=== PATIENT | female | born 1935 | race Caucasian/White ===

== ENCOUNTER 2022-11-22 10:12 | Emergency (ER) | payer MEDICARE, SELFPAY ==
--- NOTE | ~2022-11-22 | CT_ITS ---
EXAMINATION: CT HEAD WITHOUT CONTRAST CT CERVICAL SPINE WITHOUT CONTRAST CLINICAL INFORMATION: Fall. COMPARISON: No relevant prior imaging. TECHNIQUE: Marble Supervisor images were obtained. CT imaging of the head and cervical spinal was performed without contrast. Data was reformatted into multiplanar images at the acquisition workstation. This CT examination was performed using dose optimization techniques as appropriate, including one or more of the following: Automated exposure control, iterative reconstruction, and adjustment of technique factors (mA and/or kVp) according to patient size (this includes techniques or standardized protocols for targeted exams where dose is matched to indication/reason for exam). Fleischner Society criteria for the followup of incidental pulmonary nodules was implemented if appropriate. DLP: 885 mGy-cm. FINDINGS: Head: There is no acute intracranial hemorrhage or abnormal extra-axial collection. No intracranial mass effect or midline shift. Lateral and third ventricles are normal. No hydrocephalus. Scattered nonspecific foci of hypoattenuation are visualized within the periventricular white matter that most likely represent a chronic manifestation of small vessel ischemia. The calvarium and skull base are intact. Mastoid air cells and middle ear cavities are well aerated. There is a trace right mastoid tip effusion. No active paranasal sinus disease. Cervical spine: Alignment is normal. Vertebral heights are preserved. No acute cervical spine fracture. No abnormal prevertebral soft tissue swelling. Bulging discs in conjunction with buckling of ligamenta flava causes at least mild canal stenosis at multiple levels. Visualized soft tissues of the neck are unremarkable. Pleural parenchymal scarring involving the apices of both lungs. CT/CT head/brain wo IV con IMPRESSION: Head: No acute intracranial hemorrhage. There are numerous chronic small vessel ischemic changes primarily involving the periatrial white matter. Grossly no evidence of acute territorial infarct. Cervical spine: No acute cervical spine fracture and no posttraumatic spinal subluxation. There is multilevel degenerative spondylosis of the cervical spine. Bulging discs in conjunction with buckling of ligamenta flava causing left mild canal stenosis at multiple levels.
--- NOTE | ~2022-11-22 | CT_ITS ---
EXAMINATION: CT HEAD WITHOUT CONTRAST CT CERVICAL SPINE WITHOUT CONTRAST CLINICAL INFORMATION: Fall. COMPARISON: No relevant prior imaging. TECHNIQUE: Survey Research Analyst images were obtained. CT imaging of the head and cervical spinal was performed without contrast. Data was reformatted into multiplanar images at the acquisition workstation. This CT examination was performed using dose optimization techniques as appropriate, including one or more of the following: Automated exposure control, iterative reconstruction, and adjustment of technique factors (mA and/or kVp) according to patient size (this includes techniques or standardized protocols for targeted exams where dose is matched to indication/reason for exam). Fleischner Society criteria for the followup of incidental pulmonary nodules was implemented if appropriate. DLP: 885 mGy-cm. FINDINGS: Head: There is no acute intracranial hemorrhage or abnormal extra-axial collection. No intracranial mass effect or midline shift. Lateral and third ventricles are normal. No hydrocephalus. Scattered nonspecific foci of hypoattenuation are visualized within the periventricular white matter that most likely represent a chronic manifestation of small vessel ischemia. The calvarium and skull base are intact. Mastoid air cells and middle ear cavities are well aerated. There is a trace right mastoid tip effusion. No active paranasal sinus disease. Cervical spine: Alignment is normal. Vertebral heights are preserved. No acute cervical spine fracture. No abnormal prevertebral soft tissue swelling. Bulging discs in conjunction with buckling of ligamenta flava causes at least mild canal stenosis at multiple levels. Visualized soft tissues of the neck are unremarkable. Pleural parenchymal scarring involving the apices of both lungs. CT/CT cervical spine wo IV con IMPRESSION: Head: No acute intracranial hemorrhage. There are numerous chronic small vessel ischemic changes primarily involving the periatrial white matter. Grossly no evidence of acute territorial infarct. Cervical spine: No acute cervical spine fracture and no posttraumatic spinal subluxation. There is multilevel degenerative spondylosis of the cervical spine. Bulging discs in conjunction with buckling of ligamenta flava causing left mild canal stenosis at multiple levels.
--- NOTE | ~2022-11-22 | XR_ITS ---
EXAMINATION: CHEST X-RAY. PELVIS. CLINICAL INFORMATION: Fall. COMPARISON: None TECHNIQUE: Chest one view. AP pelvis 2 views. 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 There is no periprosthetic fracture or loosening. There is absorption of acetabular bone narrow resulting in the high riding acetabulum. The SI joints are symmetrical. No pelvic bone fractures seen. The right hip joint is unremarkable. CHEST: The lungs are expanded and clear of acute process. The heart size and pulmonary vascularity is normal. There is mild dextroscoliosis. No gross bony abnormality seen. XR/XR chest 1V IMPRESSION: Total left hip prosthesis in alignment with no periprosthetic fracture or loosening. A high riding acetabulum is noted. No pelvic bone fractures seen. Mild dextroscoliosis dorsal spine. The lungs are clear.
--- NOTE | ~2022-11-22 | XR_ITS ---
EXAMINATION: XR WRIST, LEFT CLINICAL INFORMATION: Fall, pain COMPARISON: None TECHNIQUE: PA, lateral, and oblique views of the left wrist. FINDINGS: There is subtle lucency seen along the distal radius but no fracture suspected. The carpal bones are normal. There is loss of joint space first carpal medical joint with soft tissue calcifications left wrist adjacent to first carpometacarpal joint. XR/XR wrist LT 2V IMPRESSION: No acute fracture or dislocation. Mild degenerative changes first carpometacarpal joint.
--- NOTE | ~2022-11-22 | XR_ITS ---
EXAMINATION: CHEST X-RAY. PELVIS. CLINICAL INFORMATION: Fall. COMPARISON: None TECHNIQUE: Chest one view. AP pelvis 2 views. 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 There is no periprosthetic fracture or loosening. There is absorption of acetabular bone narrow resulting in the high riding acetabulum. The SI joints are symmetrical. No pelvic bone fractures seen. The right hip joint is unremarkable. CHEST: The lungs are expanded and clear of acute process. The heart size and pulmonary vascularity is normal. There is mild dextroscoliosis. No gross bony abnormality seen. XR/XR pelvis 1-2V IMPRESSION: Total left hip prosthesis in alignment with no periprosthetic fracture or loosening. A high riding acetabulum is noted. No pelvic bone fractures seen. Mild dextroscoliosis dorsal spine. The lungs are clear.
--- NOTE | 2022-11-22 10:18 | ECG_ITS ---
Test Reason : UNRESPONSIVE Blood Pressure : / mmHG Vent. Rate : 048 BPM Atrial Rate : 048 BPM P-R Int : 176 ms QRS Dur : 110 ms QT Int : 504 ms P-R-T Axes : -80 -31 002 degrees QTc Int : 450 ms Unusual P axis, possible ectopic atrial bradycardia Left axis deviation Low voltage QRS Incomplete right bundle branch block Abnormal ECG No previous ECGs available Referred By: Alicia Tipton Electronically Signed By:BAILEY YING MD
--- NOTE | 2022-11-22 10:20 | ED_ITS ---
HPI - General Adult General Chief complaint: General Medical <SUSIE Ritchie - Last Filed: 11/22/22 17:23> Stated complaint: unresponsive <SUSIE Ritchie - Last Filed: 11/22/22 17:23> Time Seen by Provider: 11/22/22 10:18 <SUSIE Ritchie - Last Filed: 11/22/22 17:23> Source: patient, family (patient's son) and EMS <SUSIE Ritchie - Last Filed: 11/22/22 17:23> Mode of arrival: EMS <SUSIE Ritchie - Last Filed: 11/22/22 17:23> Limitations: altered mental status <SUSIE Ritchie - Last Filed: 11/22/22 17:23> History of Present Illness HPI narrative: Patient is an 86 year old assigned female at with a history of HLD presenting to the emergency department today after a trip and fall and vasovagal episode. Patient states that she drank her usual prune juice when she tripped and fell, landing on her left side. Patient states that she called EMS and when they arrived, they picked her up to take her to the hospital she began to feel like she was going to pass out. EMS states that the patient had a syncopal episode as she began to have a bowel movement. Patient denies any current dizziness, lightheadedness, abdominal pain, nausea, vomiting, fever, chills, blurry vision, double vision, loss of vision, chest pain, difficulty breathing, shortness of breath, back pain, night sweats, pain with urination, increased urinary frequency, increased urinary urgency, blood in her urine or stool, syncope or a near syncopal episode, bowel incontinence, bladder incontinence, bowel retention, bladder retention, or any other complaints at this time. <SUSIE Ritchie - Last Filed: 11/22/22 17:23> Onset (ago): minute(s) <SUSIE Ritchie - Last Filed: 11/22/22 17:23> Location: left (wrist and hip) <SUSIE Ritchie - Last Filed: 11/22/22 17:23> Severity: mild <SUSIE Ritchie Last Filed: 11/22/22 17:23> Severity scale (1-10): 3 <SUSIE Ritchie - Last Filed: 11/22/22 17:23> Quality: aching and dull <SUSIE Ritchie - Last Filed: 11/22/22 17:23> Pain Consistency: constant <SUSIE Ritchie - Last Filed: 11/22/22 17:23> Relieving factors: none <SUSIE Ritchie - Last Filed: 11/22/22 17:23> Exacerbating factors: none <SUSIE Ritchie - Last Filed: 11/22/22 17:23> Associated symptoms: denies other symptoms <SUSIE Ritchie - Last Filed: 11/22/22 17:23> Treatments prior to arrival: none <SUSIE Ritchie - Last Filed: 11/22/22 17:23> Related Data Home medications: Home Medications Medication Instructions Recorded Confirmed atorvastatin 20 mg tablet 20 mg PO DAILY 08/31/22 11/22/22 ascorbic acid (vitamin C) 1,000 mg 1,000 mg PO DAILY 11/22/22 11/22/22 tablet calcium carbonate 500 mg calcium 1,000 mg PO DAILY 11/22/22 11/22/22 (1,250 mg) tablet cholecalciferol (vitamin D3) 50 50 mcg PO DAILY 11/22/22 11/22/22 mcg (2,000 unit) tablet cyanocobalamin (vitamin B-12) 2,000 mcg PO DAILY 11/22/22 11/22/22 2,000 mcg tablet magnesium oxide 400 mg PO DAILY 11/22/22 11/22/22 omega [id number]-zsw-[id number]-fish oil 1,000 mg 1 cap PO BID 11/22/22 11/22/22 (120 mg-180 mg) capsule (Fish Oil) zinc sulfate 50 mg zinc (220 mg) 50 mg PO DAILY 11/22/22 11/22/22 tablet <SUSIE Ritchie - Last Filed: 11/22/22 17:23> Allergies/adverse reactions: Allergies Allergy/AdvReac Type Severity Reaction Status Date / Time simvastatin Allergy Mild Rash Verified 08/31/22 09:56 <SUSIE Ritchie Last Filed: 11/22/22 17:23> Review of Systems Constitutional: Constitutional: Reports no additional constitutional complaints, Denies chills, Denies fever(s) and Denies night sweats <SUSIE Ritchie - Last Filed: 11/22/22 17:23> Eyes: Eyes: Reports no additional eye complaints, Denies blurry vision, Denies change in vision, Denies diplopia, Denies eye discharge, Denies loss of vision and Denies eye pain <SUSIE Ritchie - Last Filed: 11/22/22 17:23> ENT: Denies dizziness <SUSIE Ritchie - Last Filed: 11/22/22 17:23> Cardiovascular: Cardiovascular: Reports no additional cardiovascular complaints, Denies chest pain, Denies lightheadedness, Denies Loss of Consciousness and Denies dyspnea <SUSIE Ritchie - Last Filed: 11/22/22 17:23> Respiratory: Respiratory: Reports no additional respiratory complaints and Denies dyspnea <SUSIE Ritchie - Last Filed: 11/22/22 17:23> Gastrointestinal: Gastrointestinal: Reports no additional gastrointestinal complaints, Denies abdominal pain, Denies melena, Denies hematochezia, Denies change in bowel habits and Denies change in stool character <SUSIE Ritchie - Last Filed: 11/22/22 17:23> Genitourinary: Genitourinary: Denies hematuria, Denies urinary frequency, Denies dysuria, Denies urinary incontinence, Denies urinary hesitancy and Denies urinary urgency <SUSIE Ritchie - Last Filed: 11/22/22 17:23> Musculoskeletal: Musculoskeletal: Reports no additional musculoskeletal complaints, Denies numbness and Denies tingling <SUSIE Ritchie - Last Filed: 11/22/22 17:23> Comments: left hip pain, left wrist pain <SUSIE Ritchie - Last Filed: 11/22/22 17:23> Neurologic: Denies dizziness, Denies loss of vision, Denies numbness and Denies tingling <SUSIE Ritchie - Last Filed: 11/22/22 17:23> Psychiatric: Psychiatric: Reports no additional psychiatric complaints <SUSIE Ritchie - Last Filed: 11/22/22 17:23> Endocrine: Endocrine: Reports no additional endocrine complaints <SUSIE Ritchie - Last Filed: 11/22/22 17:23> Hematologic/Lymphatic: Hematologic/Lymphatic: Reports no additional hematologic/lymphatic complaints <SUSIE Ritchie - Last Filed: 11/22/22 17:23> Allergic/Immunologic: Allergic/Immunologic: Reports no additional allergic/immunologic complaints <SUSIE Ritchie - Last Filed: 11/22/22 17:23> [facility] Past Medical History Attestation statement: The following information was validated with the patient. <SUSIE Ritchie - Last Filed: 11/22/22 17:23> Source: old records reviewed, obtained from family (patient's son) and nursing notes reviewed <SUSIE Ritchie - Last Filed: 11/22/22 17:23> Social History Social History: Social History Advance Directives: No Advance Directives Information Provided: Yes <SUSIE Ritchie - Last Filed: 11/22/22 17:23> Physical Exam ED Vital Signs: Vital Signs - 24 hr 11/22/22 13:57 11/22/22 15:54 11/22/22 19:31 Temperature 98.1 F 97.7 F 97.9 F Pulse Rate 64 71 70 Respiratory Rate 14 14 12 Blood Pressure 94/54 L 139/65 125/60 Pulse Oximetry 97 97 97 Oxygen Delivery Method Room Air Room Air Room Air 11/22/22 20:44 11/23/22 00:23 11/23/22 06:04 Temperature 97.9 F 98.6 F Pulse Rate 75 84 75 Respiratory Rate 13 18 18 Blood Pressure 137/61 126/73 113/56 L Pulse Oximetry 96 97 96 Oxygen Delivery Method Room Air Room Air Room Air 11/23/22 07:45 11/23/22 08:44 Temperature 97.6 F Pulse Rate 66 66 Respiratory Rate 16 Blood Pressure 116/58 L 116/58 L Pulse Oximetry 96 96 Oxygen Delivery Method Room Air BMI result Body Mass Index 29.9 <SUSIE Ritchie - Last Filed: 11/22/22 17:23> Vital Signs - 24 hr 11/22/22 13:57 11/22/22 15:54 11/22/22 19:31 Temperature 98.1 F 97.7 F 97.9 F Pulse Rate 64 71 70 Respiratory Rate 14 14 12 Blood Pressure 94/54 L 139/65 125/60 Pulse Oximetry 97 97 97 Oxygen Delivery Method Room Air Room Air Room Air 11/22/22 20:44 11/23/22 00:23 11/23/22 06:04 Temperature 97.9 F 98.6 F Pulse Rate 75 84 75 Respiratory Rate 13 18 18 Blood Pressure 137/61 126/73 113/56 L Pulse Oximetry 96 97 96 Oxygen Delivery Method Room Air Room Air Room Air 11/23/22 07:45 11/23/22 08:44 Temperature 97.6 F Pulse Rate 66 66 Respiratory Rate 16 Blood Pressure 116/58 L 116/58 L Pulse Oximetry 96 96 Oxygen Delivery Method Room Air BMI result Body Mass Index 29.9 <SUSIE Rosas - Last Filed: 11/23/22 12:12> Const General: cooperative, no acute distress, alert and awake <SUSIE Ritchie - Last Filed: 11/22/22 17:23> Nutritional Appearance: well nourished <SUSIE Ritchie - Last Filed: 11/22/22 17:23> Orientation/consciousness: patient oriented x3 <SUSIE Ritchie - Last Filed: 11/22/22 17:23> Limitations: no limitations <SUSIE Ritchie Last Filed: 11/22/22 17:23> HENMT Head: Yes normal to inspection and Yes atraumatic <SUSIE Ritchie - Last Filed: 11/22/22 17:23> Ears: hearing grossly normal bilaterally and external ears normal <SUSIE Ritchie Last Filed: 11/22/22 17:23> General nose exam: Normal external nose present, no nasal discharge noted and no epistaxis <SUSIE Ritchie Last Filed: 11/22/22 17:23> Face and sinus: Yes normal facial exam, No abrasion and No laceration <SUSIE Ritchie Last Filed: 11/22/22 17:23> Mouth: Normal oral and palatal mucosa present, no drooling and no muffled voice <SUSIE Ritchie Last Filed: 11/22/22 17:23> Eyes General: appearance normal, both eyes and all related structures <SUSIE Ritchie - Last Filed: 11/22/22 17:23> Periorbital: periorbital findings normal <Alicia Tipton PA - Last Filed: 11/22/22 17:23> Eyelids: Yes eyelids normal <Alicia Tipton PA - Last Filed: 11/22/22 17:23> Conjunctivae: conjunctivae normal <Alicia Tipton PA - Last Filed: 11/22/22 17:23> Pupils: Equal, round and reactive pupils present <Alicia Tipton PA - Last Filed: 11/22/22 17:23> EOM: EOMs intact bilaterally <Alicia Tipton PA - Last Filed: 11/22/22 17:23> Neck Neck: Yes normal visual inspection, Yes full ROM and Yes no lymphadenopathy <Alicia Tipton PA - Last Filed: 11/22/22 17:23> Chest Chest palpation & inspection: normal inspection of the chest <Alicia Tipton PA - Last Filed: 11/22/22 17:23> Resp Effort & Inspection: normal respiratory effort and able to speak in complete sentences <Alicia Tipton PA - Last Filed: 11/22/22 17:23> Auscultation: clear to auscultation bilaterally <Alicia Tipton PA - Last Filed: 11/22/22 17:23> Cardio Rate: regular rate <Alicia Tipton PA - Last Filed: 11/22/22 17:23> Rhythm: regular rhythm <Alicia Tipton PA - Last Filed: 11/22/22 17:23> GI Inspection: Yes normal to inspection <Alicia Tipton PA - Last Filed: 11/22/22 17:23> Palpation (GI): Soft to palpation, not firm, nontender, no guarding and not rigid <Alicia Tipton PA - Last Filed: 11/22/22 17:23> Neuro General: patient oriented x3 and moves all extremities <Alicia Tipton PA - Last Filed: 11/22/22 17:23> Cranial nerves: Yes Equal, round and reactive pupils present <Alicia Tipton PA - Last Filed: 11/22/22 17:23> Cognition (Neuro): normal cognition <Alicia Tipton PA - Last Filed: 11/22/22 17:23> Motor exam (neuro): 5/5 motor strength present throughout <SUSIE Ritchie - Last Filed: 11/22/22 17:23> Sensory Exam: Normal double simultaneous stimulation for sensation <SUSIE Ritchie - Last Filed: 11/22/22 17:23> Coordination: [id number] test normal <SUSIE Ritchie - Last Filed: 11/22/22 17:23> Extrem General: Yes normal to inspection, Yes full ROM and Yes capillary refill normal <SUSIE Ritchie - Last Filed: 11/22/22 17:23> Psych Appearance: grossly normal <SUSIE Ritchie - Last Filed: 11/22/22 17:23> Mental Status: mental status grossly normal <SUSIE Ritchie - Last Filed: 11/22/22 17:23> Affect: normal affect <SUSIE Ritchie - Last Filed: 11/22/22 17:23> Attitude: cooperative <SUSIE Ritchie - Last Filed: 11/22/22 17:23> Thought process: Normal thought process present <SUSIE Ritchie - Last Filed: 11/22/22 17:23> Thought content: Normal thought content present <SUSIE Ritchie - Last Filed: 11/22/22 17:23> Insight: Good insight present (Psych) <SUSIE Ritchie - Last Filed: 11/22/22 17:23> Course Course Course Narrative: Physician observation continued overnight. No acute events. She has been seen by Physical therapy and is going to be discharged [facility] today. <SUSIE Rosas - Last Filed: 11/23/22 12:12> Medications Administered Discontinued Medications Generic Name Dose Route Start Last Admin Trade Name Alicia PRN Reason Stop Dose Admin Acetaminophen 650 mg 11/22/22 15:07 11/22/22 15:17 Acetaminophen 325 Mg Tablet PO 11/22/22 15:08 650 mg ONCE ONE Administration Acetaminophen 975 mg 11/22/22 19:36 11/22/22 20:43 Acetaminophen 325 Mg Tablet PO 11/22/22 19:37 975 mg ONCE ONE Administration Sodium Chloride 1,000 mls @ 999 mls/hr 11/22/22 10:30 11/22/22 15:18 Ns IV 11/22/22 11:30 Infused .Q1H1M [facility] Infusion Sodium Chloride 1,000 mls @ 999 mls/hr 11/22/22 15:00 11/22/22 17:40 Ns IV 11/22/22 16:00 Infused .Q1H1M SOWMYA Infusion <SUSIE Ritchie - Last Filed: 11/22/22 17:23> Medications Administered Discontinued Medications Generic Name Dose Route Start Last Admin Trade Name Alicia PRN Reason Stop Dose Admin Acetaminophen 650 mg 11/22/22 15:07 11/22/22 15:17 Acetaminophen 325 Mg Tablet PO 11/22/22 15:08 650 mg ONCE ONE Administration Acetaminophen 975 mg 11/22/22 19:36 11/22/22 20:43 Acetaminophen 325 Mg Tablet PO 11/22/22 19:37 975 mg ONCE ONE Administration Sodium Chloride 1,000 mls @ 999 mls/hr 11/22/22 10:30 11/22/22 15:18 Ns IV 11/22/22 11:30 Infused .Q1H1M SOW[facility]A Infusion Sodium Chloride 1,000 mls @ 999 mls/hr 11/22/22 15:00 11/22/22 17:40 Ns IV 11/22/22 16:00 Infused .Q1H1M SOWMYA Infusion <SUSIE Rosas - Last Filed: 11/23/22 12:12> Medical Decision Making Medical Decision Making MDM Narrative: Patient is an 86 year old assigned female at with a history of HLD presenting to the emergency department today with left wrist and hip pain after a fall. Patient's physical exam was unremarkable. Patient's blood work showed a slightly elevated WBC count of 14 which I attribute to a stress reaction. Patient's EKG was unremarkable. Patient's chest, left wrist, and pelvis x-rays showed no acute process. Patient's head and c-spine CT showed no acute process. Patient's clinical presentation is most consistent with a trip and fall with a subsequent, poorly timed, bowel movement causing a vasovagal episode. I explained my physical exam findings as well as all test results to the patient and the patient's son. I answered all questions asked by the patient and the patient's son. Patient states that she is concerned about going back home feeling as weak as she does. Patient states that she has had good experience with [facility] in the past and she would like to go back there to regain some of h er strength. Patient will be evaluated by PT and case management. <SUSIE Ritchie - Last Filed: 11/22/22 17:23> Differential Diagnosis Differential Diagnoses: The differential diagnosis associated with the presentation includes <SUSIE Ritchie - Last Filed: 11/22/22 17:23> vasovagal episode, fall <SUSIE Ritchie - Last Filed: 11/22/22 17:23> Lab Data MDM Lab Attestation statement: I reviewed the patient's lab results. <SUSIE Ritchie - Last Filed: 11/22/22 17:23> Result Diagrams: : 11/22/22 10:35 11/22/22 10:35 <SUSIE Ritchie - Last Filed: 11/22/22 17:23> Labs: Lab Results 11/22/22 11/22/22 11/22/22 Range/Units 10:35 10:35 10:35 WBC 14.0 H (4.8-10.8) X10*3/uL RBC 3.37 L (4.20-5.50) X10*6/uL Hgb 11.2 L (12.0-16.0) g/dl Hct 32.7 L (37.0-47.0) % MCV 97.0 (80.0-98.0) fL MCH 33.2 H (27.0-33.0) pg MCHC 34.3 (31.0-35.0) g/dl RDW 12.5 (11.0-16.0) % Plt Count 182 (160-400) X10*3/uL MPV 8.6 L (9.4-12.3) fL Immature Gran % (Auto) 0.9 H (0.0-0.4) % Neut % (Auto) 37.4 L (45-73) % Lymph % (Auto) 43.8 H (20-40) % [place] % (Auto) 5.2 (2-11) % Eos % (Auto) 12.0 H (0-4) % Baso % (Auto) 0.7 (0-2) % Lymph # (Auto) 6.1 H (1.2-4.9) X10*3/uL [place] # (Auto) 0.7 (0.1-1.2) X10*3/uL Eos # (Auto) 1.7 H (0.0-0.4) X10*3/uL Baso # (Auto) 0.1 (0.0-0.2) X10*3/uL Abs Immat Gran (auto) 0.13 H (0.00-0.03) X10*3/uL Absolute Neuts (auto) 5.2 (2.0-8.3) x10*3/uL Absolute Nucleated RBC 0.000 (0.0-0.012) X10*3/uL Nucleated RBC % (auto) 0.0 (0.0-0.2) /100WBC Smear Tech's Comments VERIFIED Sodium 135 (135-145) mmol/L Potassium 3.8 (3.3-5.1) mmol/L Chloride 103 (96-108) mmol/L Carbon Dioxide 25 (22-29) mmol/L Anion Gap 11 L (12-20) BUN 22 H (9-16) mg/dL Creatinine 0.75 (0.5-1.4) mg/dL Estim Creat Clear Calc 57.8 Estimated GFR > 60 Random Glucose 104 (60-115) mg/dL Lactic Acid 1.9 (0.5-2.0) mmol/L Calcium 8.8 (8.4-10.2) mg/dL Magnesium 1.8 (1.6-2.6) mg/dL Total Bilirubin 1.0 (0.0-1.0) mg/dL AST 23 (5-31) U/L ALT 20 (0-31) U/L Alkaline Phosphatase 82 (39-117) U/L Troponin I High Sens (<3.5-17.0) ng/L Total Protein 6.1 L (6.5-8.0) g/dL Albumin 3.8 (3.5-5.0) g/dL Urine Color Urine Appearance Urine pH (5.0-9.0) Ur Specific [place] (1.005-1.025) Urine Protein (Neg-Trace) mg/dL Urine Glucose (UA) (Negative) mg/dL Urine Ketones (Negative) mg/dL Urine Blood (Negative) Urine Nitrite (Negative) Ur Leukocyte Esterase (Negative) Influenza Type A (PCR) (Negative) Influenza Type B (PCR) (Negative) RSV RNA Qual (PCR) (Negative) SARS-CoV-2 RNA (RT-PCR) (Negative) 11/22/22 11/22/22 11/23/22 Range/Units 10:35 10:36 03:28 WBC (4.8-10.8) X10*3/uL RBC (4.20-5.50) X10*6/uL Hgb (12.0-16.0) g/dl Hct (37.0-47.0) % MCV (80.0-98.0) fL MCH (27.0-33.0) pg MCHC (31.0-35.0) g/dl RDW (11.0-16.0) % Plt Count (160-400) X10*3/uL MPV (9.4-12.3) fL Immature Gran % (Auto) (0.0-0.4) % Neut % (Auto) (45-73) % Lymph % (Auto) (20-40) % [place] % (Auto) (2-11) % Eos % (Auto) (0-4) % Baso % (Auto) (0-2) % Lymph # (Auto) (1.2-4.9) X10*3/uL [place] # (Auto) (0.1-1.2) X10*3/uL Eos # (Auto) (0.0-0.4) X10*3/uL Baso # (Auto) (0.0-0.2) X10*3/uL Abs Immat Gran (auto) (0.00-0.03) X10*3/uL Absolute Neuts (auto) (2.0-8.3) x10*3/uL Absolute Nucleated RBC (0.0-0.012) X10*3/uL Nucleated RBC % (auto) (0.0-0.2) /100WBC Smear Tech's Comments Sodium (135-145) mmol/L Potassium (3.3-5.1) mmol/L Chloride (96-108) mmol/L Carbon Dioxide (22-29) mmol/L Anion Gap (12-20) BUN (9-16) mg/dL Creatinine (0.5-1.4) mg/dL Estim Creat Clear Calc Estimated GFR Random Glucose (60-115) mg/dL Lactic Acid (0.5-2.0) mmol/L Calcium (8.4-10.2) mg/dL Magnesium (1.6-2.6) mg/dL Total Bilirubin (0.0-1.0) mg/dL AST (5-31) U/L ALT (0-31) U/L Alkaline Phosphatase (39-117) U/L Troponin I High Sens 6.6 (<3.5-17.0) ng/L Total Protein (6.5-8.0) g/dL Albumin (3.5-5.0) g/dL Urine Color Yellow Urine Appearance Clear Urine pH 6.5 (5.0-9.0) Ur Specific [place] 1.010 (1.005-1.025) Urine Protein Negative (Neg-Trace) mg/dL Urine Glucose (UA) Negative (Negative) mg/dL Urine Ketones Negative (Negative) mg/dL Urine Blood Negative (Negative) Urine Nitrite Negative (Negative) Ur Leukocyte Esterase Negative (Negative) Influenza Type A (PCR) NEGATIVE (Negative) Influenza Type B (PCR) NEGATIVE (Negative) RSV RNA Qual (PCR) NEGATIVE (Negative) SARS-CoV-2 RNA (RT-PCR) NEGATIVE (Negative) <SUSIE Ritchie - Last Filed: 11/22/22 17:23> Lab Results 11/22/22 11/22/22 11/22/22 Range/Units 10:35 10:35 10:35 WBC 14.0 H (4.8-10.8) X10*3/uL RBC 3.37 L (4.20-5.50) X10*6/uL Hgb 11.2 L (12.0-16.0) g/dl Hct 32.7 L (37.0-47.0) % MCV 97.0 (80.0-98.0) fL MCH 33.2 H (27.0-33.0) pg MCHC 34.3 (31.0-35.0) g/dl RDW 12.5 (11.0-16.0) % Plt Count 182 (160-400) X10*3/uL MPV 8.6 L (9.4-12.3) fL Immature Gran % (Auto) 0.9 H (0.0-0.4) % Neut % (Auto) 37.4 L (45-73) % Lymph % (Auto) 43.8 H (20-40) % [place] % (Auto) 5.2 (2-11) % Eos % (Auto) 12.0 H (0-4) % Baso % (Auto) 0.7 (0-2) % Lymph # (Auto) 6.1 H (1.2-4.9) X10*3/uL [place] # (Auto) 0.7 (0.1-1.2) X10*3/uL Eos # (Auto) 1.7 H (0.0-0.4) X10*3/uL Baso # (Auto) 0.1 (0.0-0.2) X10*3/uL Abs Immat Gran (auto) 0.13 H (0.00-0.03) X10*3/uL Absolute Neuts (auto) 5.2 (2.0-8.3) x10*3/uL Absolute Nucleated RBC 0.000 (0.0-0.012) X10*3/uL Nucleated RBC % (auto) 0.0 (0.0-0.2) /100WBC Smear Tech's Comments VERIFIED Sodium 135 (135-145) mmol/L Potassium 3.8 (3.3-5.1) mmol/L Chloride 103 (96-108) mmol/L Carbon Dioxide 25 (22-29) mmol/L Anion Gap 11 L (12-20) BUN 22 H (9-16) mg/dL Creatinine 0.75 (0.5-1.4) mg/dL Estim Creat Clear Calc 57.8 Estimated GFR > 60 Random Glucose 104 (60-115) mg/dL Lactic Acid 1.9 (0.5-2.0) mmol/L Calcium 8.8 (8.4-10.2) mg/dL Magnesium 1.8 (1.6-2.6) mg/dL Total Bilirubin 1.0 (0.0-1.0) mg/dL AST 23 (5-31) U/L ALT 20 (0-31) U/L Alkaline Phosphatase 82 (39-117) U/L Troponin I High Sens (<3.5-17.0) ng/L Total Protein 6.1 L (6.5-8.0) g/dL Albumin 3.8 (3.5-5.0) g/dL Urine Color Urine Appearance Urine pH (5.0-9.0) Ur Specific [place] (1.005-1.025) Urine Protein (Neg-Trace) mg/dL Urine Glucose (UA) (Negative) mg/dL Urine Ketones (Negative) mg/dL Urine Blood (Negative) Urine Nitrite (Negative) Ur Leukocyte Esterase (Negative) Influenza Type A (PCR) (Negative) Influenza Type B (PCR) (Negative) RSV RNA Qual (PCR) (Negative) SARS-CoV-2 RNA (RT-PCR) (Negative) 11/22/22 11/22/22 11/23/22 Range/Units 10:35 10:36 03:28 WBC (4.8-10.8) X10*3/uL RBC (4.20-5.50) X10*6/uL Hgb (12.0-16.0) g/dl Hct (37.0-47.0) % MCV (80.0-98.0) fL MCH (27.0-33.0) pg MCHC (31.0-35.0) g/dl RDW (11.0-16.0) % Plt Count (160-400) X10*3/uL MPV (9.4-12.3) fL Immature Gran % (Auto) (0.0-0.4) % Neut % (Auto) (45-73) % Lymph % (Auto) (20-40) % [place] % (Auto) (2-11) % Eos % (Auto) (0-4) % Baso % (Auto) (0-2) % Lymph # (Auto) (1.2-4.9) X10*3/uL [place] # (Auto) (0.1-1.2) X10*3/uL Eos # (Auto) (0.0-0.4) X10*3/uL Baso # (Auto) (0.0-0.2) X10*3/uL Abs Immat Gran (auto) (0.00-0.03) X10*3/uL Absolute Neuts (auto) (2.0-8.3) x10*3/uL Absolute Nucleated RBC (0.0-0.012) X10*3/uL Nucleated RBC % (auto) (0.0-0.2) /100WBC Smear Tech's Comments Sodium (135-145) mmol/L Potassium (3.3-5.1) mmol/L Chloride (96-108) mmol/L Carbon Dioxide (22-29) mmol/L Anion Gap (12-20) BUN (9-16) mg/dL Creatinine (0.5-1.4) mg/dL Estim Creat Clear Calc Estimated GFR Random Glucose (60-115) mg/dL Lactic Acid (0.5-2.0) mmol/L Calcium (8.4-10.2) mg/dL Magnesium (1.6-2.6) mg/dL Total Bilirubin (0.0-1.0) mg/dL AST (5-31) U/L ALT (0-31) U/L Alkaline Phosphatase (39-117) U/L Troponin I High Sens 6.6 (<3.5-17.0) ng/L Total Protein (6.5-8.0) g/dL Albumin (3.5-5.0) g/dL Urine Color Yellow Urine Appearance Clear Urine pH 6.5 (5.0-9.0) Ur Specific [place] 1.010 (1.005-1.025) Urine Protein Negative (Neg-Trace) mg/dL Urine Glucose (UA) Negative (Negative) mg/dL Urine Ketones Negative (Negative) mg/dL Urine Blood Negative (Negative) Urine Nitrite Negative (Negative) Ur Leukocyte Esterase Negative (Negative) Influenza Type A (PCR) NEGATIVE (Negative) Influenza Type B (PCR) NEGATIVE (Negative) RSV RNA Qual (PCR) NEGATIVE (Negative) SARS-CoV-2 RNA (RT-PCR) NEGATIVE (Negative) <SUSIE Rosas - Last Filed: 11/23/22 12:12> Independent Interpretation I performed an independent interpretation of an: EKG <SUSIE Ritchie - Last Filed: 11/22/22 17:23> Interpretation: Vent. Rate: 048 BPM ? ? Atrial Rate: 048 BPM P-R Int: 176 ms? QRS Dur: 110 ms QT Int: 504 ms ? ? ? P-R-T Axes: -80 -31 002 degrees QTc Int: 450 ms ? Unusual P axis, possible ectopic atrial bradycardia Left axis deviation Low voltage QRS Incomplete right bundle branch block Abnormal ECG No previous ECGs available ? Electronically Signed By:JASON YING MD Dictated By: Jason Ying MD Signed By: Electronically signed by Jason Ying MD 11/22/22 3882 <SUSIE Ritchie - Last Filed: 11/22/22 17:23> Radiology Impression Discussion of test interpretation with radiology: I have reviewed the radiologist's reading. <SUSIE Ritchie - Last Filed: 11/22/22 17:23> Radiologist Impression: My interpretation is in agreement with the radiologist's impression of these imaging studies. EXAMINATION: XR WRIST, LEFT CLINICAL INFORMATION: Fall, pain? COMPARISON: None? TECHNIQUE: PA, lateral, and oblique views of the left wrist. FINDINGS: There is subtle lucency seen along the distal radius but no fracture suspected. The carpal bones are normal. There is loss of joint space first carpal medical joint with soft tissue calcifications left wrist adjacent to first carpometacarpal joint. XR/XR wrist LT 2V IMPRESSION: No acute fracture or dislocation. ? Mild degenerative changes first carpometacarpal joint. Dictated By: Landon Monet MD Signed By: Electronically signed by Landon Monet MD 11/22/22 1447 EXAMINATION: CHEST X-RAY. PELVIS. CLINICAL INFORMATION: Fall.? COMPARISON: None? TECHNIQUE: Chest one view. AP pelvis 2 views.? 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 There is no periprosthetic fracture or loosening. There is absorption of acetabular bone narrow resulting in the high riding acetabulum. The SI joints are symmetrical. No pelvic bone fractures seen. The right hip joint is unremarkable. CHEST: The lungs are expanded and clear of acute process. The heart size and pulmonary vascularity is normal. There is mild dextroscoliosis. No gross bony abnormality seen.? XR/XR pelvis 1-2V IMPRESSION: Total left hip prosthesis in alignment with no periprosthetic fracture or loosening. A high riding acetabulum is noted. No pelvic bone fractures seen. ? Mild dextroscoliosis dorsal spine. The lungs are clear. ? Dictated By: Landon Monet MD Signed By: Electronically signed by Landon Monet MD 11/22/22 1225 EXAMINATION: CT HEAD WITHOUT CONTRAST CT CERVICAL SPINE WITHOUT CONTRAST CLINICAL INFORMATION: Fall.? COMPARISON: No relevant prior imaging.? TECHNIQUE: Counter Cutter images were obtained. CT imaging of the head and cervical spinal was performed without contrast. Data was reformatted into multiplanar images at the acquisition workstation. This CT examination was performed using dose optimization techniques as appropriate, including one or more of the following: Automated exposure control, iterative reconstruction, and adjustment of technique factors (mA and/or kVp) according to patient size (this includes techniques or standardized protocols for targeted exams where dose is matched to indication/reason for exam). Fleischner Society criteria for the followup of incidental pulmonary nodules was implemented if appropriate. DLP: 885 mGy-cm. FINDINGS: Head: There is no acute intracranial hemorrhage or abnormal extra-axial collection. No intracranial mass effect or midline shift. Lateral and third ventricles are normal. No hydrocephalus. Scattered nonspecific foci of hypoattenuation are visualized within the periventricular white matter that most likely represent a chronic manifestation of small vessel ischemia. The calvarium and skull base are intact. Mastoid air cells and middle ear cavities are well aerated. There is a trace right mastoid tip effusion. No active paranasal sinus disease. Cervical spine: Alignment is normal. Vertebral heights are preserved. No acute cervical spine fracture. No abnormal prevertebral soft tissue swelling. Bulging discs in conjunction with buckling of ligamenta flava causes at least mild canal stenosis at multiple levels. Visualized soft tissues of the neck are unremarkable. Pleural parenchymal scarring involving the apices of both lungs.? CT/CT head/brain wo IV con IMPRESSION: Head: No acute intracranial hemorrhage. There are numerous chronic small vessel ischemic changes primarily involving the periatrial white matter. Grossly no evidence of acute territorial infarct. Cervical spine: No acute cervical spine fracture and no posttraumatic spinal subluxation. There is multilevel degenerative spondylosis of the cervical spine. Bulging discs in conjunction with buckling of ligamenta flava causing left mild canal stenosis at multiple levels. Dictated By: Isidro Beavers MD Signed By: Electronically signed by Isidro Beavers MD 11/22/22 1145 <SUSIE Ritchie - Last Filed: 11/22/22 17:23> Independent Historian Clinical information obtained from an independent historian. History obtained from or confirmed by: EMS and Other (patient's son) <SUSIE Ritchie - Last Filed: 11/22/22 17:23> Discharge Plan Discharge Clinical Impression: Fall, Vasovagal episode <SUSIE Ritchie - Last Filed: 11/22/22 17:23> Patient Disposition: Still a Patient <SUSIE Ritchie - Last Filed: 11/22/22 17:23> Instructions: Syncope (ED), Fall Prevention (ED) <SUSIE Ritchie - Last Filed: 11/22/22 17:23> Additional Instructions: Follow up with your primary care provider. Return to the emergency department immediately if your symptoms worsen or if you develop any dizziness, shortness of breath, difficulty breathing, chest pain, blurry vision, loss of vision, nausea, vomiting, abdominal pain, fever, chills, back pain, or any other complaints. <SUSIE Ritchie Last Filed: 11/22/22 17:23> Prescriptions: No Action ascorbic acid (vitamin C) 1,000 mg Tablet 1,000 mg PO DAILY zinc sulfate 50 mg zinc (220 mg) Tablet 50 mg PO DAILY calcium carbonate [Calcium 500] 500 mg calcium (1,250 mg) Tablet 1,000 mg PO DAILY cholecalciferol (vitamin D3) 50 mcg (2,000 unit) Tablet 50 mcg PO DAILY omega 2-[id number]-cmz-fish oil [Fish Oil] 1,000 mg (120 mg-180 mg) Capsule 1 cap PO BID cyanocobalamin (vitamin B-12) 2,000 mcg Tablet 2,000 mcg PO DAILY magnesium oxide 400 mg magnesium Tablet 400 mg PO DAILY atorvastatin 20 mg tablet 20 mg PO DAILY <SUSIE Ritchie - Last Filed: 11/22/22 17:23> Referrals: shikha qureshi [Other] [facility] [Provider Group] (Call to establish and follow up with a primary care provider. If you already have a primary care provider, please follow up with them. ) [facility] Primary Care, [place] [Provider Group] (Call to establish and follow up with a primary care provider. If you already have a primary care provider, please follow up with them. ) [facility] Primary Care,[facility] [Provider Group] (Call to establish and follow up with a primary care provider. If you already have a primary care provider, please follow up with them. ) <SUSIE Ritchie Last Filed: 11/22/22 17:23> Print Language: Citizen Of [place] <SUSIE Ritchie Last Filed: 11/22/22 17:23>
[2022-11-22 10:44] LABS: Basophils Absolute Auto 0.1 X10*3/uL (0.0-0.2); Basophils Percent Auto 0.7 % (0-2); Eosinophils Absolute Auto 1.7 X10*3/uL (0.0-0.4); Hematocrit 32.7 % (37.0-47.0); Hemoglobin 11.2 g/dl (12.0-16.0); Imm Gran Abs Auto 0.13 X10*3/uL (0.00-0.03); Imm Gran Pct Auto 0.9 % (0.0-0.4); Lymphocytes Percent Auto 43.8 % (20-40); MANUAL DIFF FLAG SCAN; Mean Corpuscular HGB Conc 34.3 g/dl (31.0-35.0); Mean Corpuscular Hemoglobin 33.2 pg (27.0-33.0); Mean Platelet Volume 8.6 fL (9.4-12.3); Monocytes Absolute Auto 0.7 X10*3/uL (0.1-1.2); Monocytes Percent Auto 5.2 % (2-11); Neutrophils Absolute Auto 5.2 x10*3/uL (2.0-8.3); Neutrophils Percent Auto 37.4 % (45-73); Platelet Count 182 X10*3/uL (160-400); Red Blood Count 3.37 X10*6/uL (4.20-5.50); Red Cell Distribution Width 12.5 % (11.0-16.0); SCAN SMEAR FLAG 1
[2022-11-22 10:45] LABS: Lymphocytes Absolute Auto 6.1 X10*3/uL (1.2-4.9)
[2022-11-22 10:46] VITALS: BP 101/52; PULSE 60; RESP 18; O2SAT 95; BMI 29.9
[2022-11-22 11:00] LABS: Lactic Acid 1.9 mmol/L (0.5-2.0)
[2022-11-22] MEDS: 0.9 % Sodium Chloride 1,000 ML 999 ML IV ×2 (11:01→15:18)
[2022-11-22 11:03] VITALS: BP 103/50; PULSE 51; RESP 16; TEMP 37.2; O2SAT 93
--- NOTE | 2022-11-22 11:04 | PC.NURSE ---
Pt alert and oriented at this time, reports feeling tired yet more aware of what is happening now. IV established, labs drawn and sent. Normal saline infusing. CT scan taken.
[2022-11-22 11:05] LABS: Alanine Aminotransferase 20 U/L (0-31); Albumin Level 3.8 g/dL (3.5-5.0); Alkaline Phosphatase 82 U/L (39-117); Anion Gap 11 (12-20); Aspartate Amino Transferase 23 U/L (5-31); Blood Urea Nitrogen 22 mg/dL (9-16); Calcium 8.8 mg/dL (8.4-10.2); Carbon Dioxide 25 mmol/L (22-29); Chloride 103 mmol/L (96-108); Creatinine Clr Calc Pharmacy 57.8; Estimated Glomerular Filt Rate > 60; Glucose Random 104 mg/dL (60-115); Magnesium 1.8 mg/dL (1.6-2.6); Potassium 3.8 mmol/L (3.3-5.1); Sodium 135 mmol/L (135-145); Total Protein 6.1 g/dL (6.5-8.0)
[2022-11-22 11:13] LABS: Troponin-I High Sensitivity 6.6 ng/L (<3.5-17.0)
--- NOTE | 2022-11-22 11:13 | PHA.MEDREC ---
Pharmacy Consult ? Medication Reconciliation Pharmacy has completed the medication reconciliation. Patient had list of medications. Michelle Arvizu, MichD
[2022-11-22 11:14] LABS: SLIDE REVIEW VERIFIED
[2022-11-22 11:20] LABS: Influenza A PCR NEGATIVE (Negative); Influenza B PCR NEGATIVE (Negative); Resp Syncy Virus RNA Qual PCR NEGATIVE (Negative); SARS COV2 PCR INHOUSE NEGATIVE (Negative)
[2022-11-22 13:57] VITALS: BP 94/54; PULSE 64; RESP 14; TEMP 36.7; O2SAT 97
[2022-11-22] MEDS: Acetaminophen 325 MG TABLET 650 MG PO (15:17)
[2022-11-22 15:54] VITALS: BP 139/65; PULSE 71; RESP 14; TEMP 36.5; O2SAT 97
--- NOTE | 2022-11-22 19:03 | MHC.CM.ED ---
CM received consult from Alicia RICHARDS. Pt fell at home, then had a syncopal episode. Medical work-up is negative. Pt feels weak and thinks she needs PT and STR. Lives alone at [facility] in [place]. 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 Still drives. HCP at home. HCP/daughter Saniya Jackson ([phone]). No DME/services. Very involved family supports. Pfizer x2. No booster. HCP/daughter Saniya Jackson ([phone]). Had hip replaced in 2012 and had services at [facility]. Pt is requesting STR at [facility]. They are first choice. Agreeable to local referrals also. PT is pending. Referrals placed locally. CM to follow for D./C planning.
[2022-11-22 19:31] VITALS: BP 125/60; PULSE 70; RESP 12; TEMP 36.6; O2SAT 97
--- NOTE | 2022-11-22 19:33 | PC.NURSE ---
Assumed careof patient. Pt resting quietly while watching tv, no apparent distress. c/o L hip pain 09/03.
[2022-11-22] MEDS: Acetaminophen 325 MG TABLET 975 MG PO (20:43)
[2022-11-22 20:44] VITALS: BP 137/61; PULSE 75; RESP 13; TEMP 36.6; O2SAT 96
--- NOTE | 2022-11-22 23:04 | PC.NURSE ---
Lights dimmed pt sleeping. No apparent distress.
[2022-11-23 00:23] VITALS: BP 126/73; PULSE 84; RESP 18; TEMP 37; O2SAT 97
[2022-11-23 03:35] LABS: Appearance Urine Clear; Color Urine Yellow; Glucose Urine UA Negative (Negative); Leukocyte Esterase Urine Negative (Negative); Nitrite Urine Negative (Negative); PH 6.5 (5.0-9.0); Urine Blood Negative (Negative); Urine Ketones Negative (Negative); Urine Protein Negative (Neg-Trace)
[2022-11-23 06:04] VITALS: BP 113/56; PULSE 75; RESP 18; O2SAT 96
[2022-11-23 07:45] VITALS: BP 116/58; PULSE 66; RESP 16; TEMP 36.4; O2SAT 96
[2022-11-23 08:44] VITALS: BP 116/58; PULSE 66; O2SAT 96
--- NOTE | 2022-11-23 11:32 | PC.NURSE ---
report given to Rajani Siddiqui for pt txf
--- NOTE | 2022-11-23 11:51 | MHC.CM.PN ---
pt to be dcd today to [facility] booked son mike notified
== END 2022-11-23 13:15 ==
PROVIDERS: Physician Assistant Medical; Emergency Provider Student in an Organized Health Care Education/Training Program
DX: R55 Syncope and collapse (principal); Z91.81 History of falling; Z20.828 Contact with and (suspected) exposure to other viral communicable diseases; Z20.822 Contact with and (suspected) exposure to COVID-19
CPT/HCPCS: 0241U; 70450; 71045; 72125; 72170; 73100; 80053; 81003; 83605; 83735; 84484; 85025; 87040; 93005; 96360; 96361; 97162; 99285

== ENCOUNTER 2024-01-13 12:46 | Outpatient (AMB) | payer MEDICARE, SELFPAY ==
--- NOTE | 2024-01-13 13:14 | AM.OFFWIN_ITS ---
Intake Vital Signs 01/13/24 13:50 Height 5 ft 4 in Weight 146 lb BMI 25.1 BP 130/80 Blood Pressure Location Lt brachial Position Sitting Pulse 65 Pulse Source Pulse Oximeter Temp 97.5 F Temp Source Temporal Artery Scan Pulse Oximetry (%) 96 Oxygen Delivery Method Room Air Intake Visit Reasons: EP COVID + 2 weeks ago/still coughing (masked) Intake Note: pt is here today for COVID 2 weeks ago and still coughing Patient Tobacco Use Status: Never used Tobacco Allergies simvastatin Allergy (Mild, Verified 01/13/24 13:14) Rash Do you need a note to return to daycare/school/sports/work: No HPI HPI Comments History of Present Illness Details The patient presents to urgent care for evaluation of fatigue. She states that 2 weeks ago she came down with COVID tested positive. She is since recovered from the acute viral illness no fever no cough but does report ongoing fatigue. No other symptoms. She is inquiring as to whether an antibiotic would help. [facility] Social History Patient Tobacco Use Status: Never used Tobacco Physical Exam Vital Signs: Last Vital Signs Temp 97.5 F 01/13/24 13:50 Pulse 65 01/13/24 13:50 BP 130/80 01/13/24 13:50 Pulse Ox 96 01/13/24 13:50 Oxygen Delivery Method Room Air 01/13/24 13:50 BMI result Body Mass Index 25.1 Const General: healthy appearing and no acute distress Orientation/consciousness: patient oriented x3 Eyes Corneas: corneas normal Pupils: Equal, round and reactive pupils present Chest Chest palpation & inspection: no tenderness Resp Effort & Inspection: normal respiratory effort and able to speak in complete sentences GI Palpation (GI): nontender Neuro General: patient oriented x3 Cranial nerves: Yes Equal, round and reactive pupils present Psych Appearance: grossly normal Attitude: cooperative Assessment & Plan Assessment & Plan (1) COVID: Code(s): U07.1 - COVID-19 Plan Discussed with patient that her symptoms are related to covid. She is well past the window of treatment of Paxlovid. Vital signs stable. Patient otherwise well-appearing Post COVID symptoms such as ongoing fatigue. Would like her to follow-up with her PCP in 1 week. Discussed no role in antibiotic treatment. Coding Level of Care Code Est Pt Level 3 (34744) Diagnoses COVID U07.1
[2024-01-13 13:50] VITALS: BP 130/80; PULSE 65; TEMP 36.4; O2SAT 96; BMI 25.1
== END 2024-01-13 15:26 | disposition home or self-care (01) ==
PROVIDERS: Visit Provider Emergency Medicine
DX: U07.1 COVID-19 (principal)
CPT/HCPCS: 99213

== ENCOUNTER 2024-02-16 20:36 | Inpatient (IN) | payer MEDICARE, SELFPAY ==
[2024-02-16] VITALS (9 sets, daily range): BP systolic 109–132; BP diastolic 79–99; PULSE 87–160; RESP 14–20; TEMP 36.4; O2SAT 93–98; BMI 27.8
--- NOTE | 2024-02-16 | ECG_ITS ---
Test Reason : sob Blood Pressure : / mmHG Vent. Rate : 125 BPM Atrial Rate : 000 BPM P-R Int : 000 ms QRS Dur : 088 ms QT Int : 276 ms P-R-T Axes : 000 -47 089 degrees QTc Int : 398 ms Atrial fibrillation with rapid ventricular response Left axis deviation Nonspecific ST and T wave abnormality Abnormal ECG When compared with ECG of 22-NOV-2022 11:15, Atrial fibrillation has replaced Ectopic atrial rhythm Vent. rate has increased BY 77 BPM Incomplete right bundle branch block is no longer Present Referred By: Generic ED Physician Electronically Signed By:Momo Garcia
--- NOTE | ~2024-02-16 | US_ITS ---
EXAMINATION: US ABDOMEN LIMITED CLINICAL INFORMATION: Elevated transaminases and bilirubin. COMPARISON: None available. TECHNIQUE: Real-time imaging of the right upper quadrant abdominal viscera. Limited visualization due to bowel gas. FINDINGS: PANCREAS: Limited visualization of pancreatic tail and head. Imaged portion of pancreatic body is unremarkable. LIVER: Unremarkable hepatic parenchymal echogenicity. Limited visualization. GALLBLADDER: Multiple gallstones. Small amount of pericholecystic fluid. Borderline gallbladder wall thickening of 3 mm. COMMON BILE DUCT: Normal in caliber measuring 0.4 cm in diameter. RIGHT KIDNEY: No hydronephrosis. No renal calculi. Limited visualization. The kidney measures 8.7 cm in maximum dimension. FREE FLUID: None. ADDITIONAL FINDINGS: Incidental note on limited views of a moderate right pleural effusion, incompletely imaged. Correlation with chest radiographs recommended. US/US abdomen limited IMPRESSION: 1. Cholelithiasis. Small amount of pericholecystic fluid. Borderline gallbladder wall thickening of 3 mm. 2. Incidental note on limited views of a moderate right pleural effusion, incompletely imaged. Correlation with chest radiographs recommended. This study was presented today February 17, 2024 for interpretation. Prompt results provided at this time as requested by referring provider.
--- NOTE | ~2024-02-16 | XR_ITS ---
EXAMINATION: XR CHEST CLINICAL INFORMATION: New A. fib, mild crackles COMPARISON: 11/22/2022 TECHNIQUE: Frontal view of the chest was obtained. FINDINGS: Lung volumes are symmetric. There is increased prominence of the central vasculature and interstitium diffusely compared to prior, suspicious for interstitial edema. No evidence of pneumothorax. Trace pleural effusions are suspected. There is subtle patchy opacity at the right lung base. Cardiac silhouette is mildly enlarged. Calcification is present at the aortic arch. No acute osseous findings are seen. XR/XR chest 1V IMPRESSION: Increased prominence of the central vasculature and interstitium, suspicious for interstitial edema. Subtle patchy right basilar opacity.
[2024-02-16 20:56] LABS: MANUAL DIFF FLAG NO
[2024-02-16 20:58] LABS: Basophils Absolute Auto 0.1 X10*3/uL (0.0-0.2); Eosinophils Absolute Auto 0.5 X10*3/uL (0.0-0.4); Eosinophils Percent Auto 5.7 % (0-4); Hematocrit 40.5 % (37.0-47.0); Hemoglobin 13.7 g/dl (12.0-16.0); Imm Gran Abs Auto 0.02 X10*3/uL (0.00-0.03); Imm Gran Pct Auto 0.2 % (0.0-0.4); Lymphocytes Absolute Auto 2.7 X10*3/uL (1.2-4.9); Lymphocytes Percent Auto 32.8 % (20-40); Mean Corpuscular HGB Conc 33.8 g/dl (31.0-35.0); Mean Corpuscular Hemoglobin 32.9 pg (27.0-33.0); Mean Corpuscular Volume 97.1 fL (80.0-98.0); Mean Platelet Volume 9.5 fL (9.4-12.3); Monocytes Absolute Auto 0.4 X10*3/uL (0.1-1.2); Monocytes Percent Auto 5.3 % (2-11); Neutrophils Absolute Auto 4.6 x10*3/uL (2.0-8.3); Platelet Count 179 X10*3/uL (160-400); Red Blood Count 4.17 X10*6/uL (4.20-5.50); White Blood Count 8.3 X10*3/uL (4.8-10.8)
[2024-02-16] MEDS: dilTIAZem HCL 50 MG/10 ML VIAL 10 MG IVPUSH ×2 (21:10→23:18)
[2024-02-16 21:54] LABS: Alanine Aminotransferase 46 U/L (0-31); Albumin Level 3.8 g/dL (3.5-5.0); Alkaline Phosphatase 78 U/L (39-117); Anion Gap 15 (12-20); Aspartate Amino Transferase 36 U/L (5-31); Bilirubin Total 1.9 mg/dL (0.0-1.0); Blood Urea Nitrogen 17 mg/dL (9-16); Calcium 8.8 mg/dL (8.4-10.2); Carbon Dioxide 20 mmol/L (22-29); Chloride 105 mmol/L (96-108); Creatinine Clr Calc Pharmacy 45.1; Estimated Glomerular Filt Rate > 60; Glucose Random 121 mg/dL (60-115); Potassium 4.7 mmol/L (3.3-5.1); Sodium 135 mmol/L (135-145); Total Protein 6.5 g/dL (6.5-8.0)
[2024-02-16 22:00] LABS: B Type Natriuretic Peptide 1788 pg/mL (<100)
[2024-02-16 22:01] LABS: Troponin-I High Sensitivity 34.5 ng/L (<3.5-17.0)
--- NOTE | 2024-02-16 23:01 | ED_ITS ---
HPI - SOB/Dyspnea General Chief Complaint: Dyspnea Stated Complaint: SOB and fatigue, a-fib Time Seen by Provider: 02/16/24 20:53 Source: patient Mode of arrival: ambulatory Limitations: no limitations History of Present Illness HPI Narrative: Patient comes to the emergency room complaining of shortness of breath. Patient states that 2 months ago she started noticing that when she walks she becomes short of breath. Today, going up the stairs she became significantly short of breath for the 1st time. Patient denies chest pain. Patient states that otherwise she feels well. Patient denies chest pain. Denies lower extremity edema. Patient states that she has no medical history other than a TIA and only takes statin. Related Data Home Medications ?Medication ?Instructions ?Recorded ?Confirmed ascorbic acid (vitamin C) 1,000 mg 1,000 mg PO DAILY 11/22/22 05/19/24 tablet calcium carbonate 1,000 mg PO DAILY 11/22/22 05/19/24 cholecalciferol (vitamin D3) 50 50 mcg PO DAILY 11/22/22 05/19/24 mcg (2,000 unit) tablet cyanocobalamin (vitamin B-12) 2,000 mcg PO DAILY 11/22/22 04/03/24 2,000 mcg tablet omega 8-wly-bir-fish oil 1,000 mg 1 cap PO BID 11/22/22 05/19/24 (120 mg-180 mg) capsule (Fish Oil) zinc sulfate 50 mg zinc (220 mg) 50 mg PO DAILY 11/22/22 05/19/24 tablet acetaminophen 500 mg tablet 500 mg PO DAILY PRN Pain 02/17/24 05/19/24 Previous Rx's ?Medication ?Instructions ?Recorded amiodarone 200 mg tablet 200 mg PO DAILY #30 tabs 04/14/24 apixaban 5 mg tablet (Eliquis) 5 mg PO BID #60 tabs 04/14/24 furosemide 40 mg tablet 40 mg PO DAILY #30 tabs 04/14/24 Allergies Allergy/AdvReac Type Severity Reaction Status Date / Time simvastatin Allergy Mild Rash Verified 05/19/24 15:40 Review of Systems 2 Review of Systems: Constitutional : No Weight loss, No Fever, No Chills, No Night Sweats, No Fatigue, No Malaise ENT/Mouth : No Hearing loss, No Ear Pain, No Nasal Congestion, No Sinus Pain, No Hoarseness, No sore throat, No Rhinorrhea, No Swallowing Difficulty Eyes: No Eye Pain, No Swelling, No Redness, No Foreign Body, No Discharge, No Vision Changes Cardiovascular : No Chest Pain, complaining of exertional shortness of breath Respiratory : No Cough, No Sputum, No Wheezing, No Smoke Exposure, No Dyspnea Gastrointestinal : No Nausea, No Vomiting, No Diarrhea, No Constipation, No abdominal Pain, No Hematochezia, No Melena Genitourinary : no irregular bleeding, No Dysuria, No Urinary Frequency, No Hematuria, No Urinary Incontinence, No Urgency, No Flank Pain, No Urinary Flow Changes, No Hesitancy Musculoskeletal : No joint pain, No Myalgias, No Joint Swelling Skin : No Skin Lesions, No rash Neuro : No Weakness, No Numbness, No Paresthesias, No Loss of Consciousness, No Dizziness, No Headache Psych : No Anxiety/Panic, No Depression, No SI/HI/AH/VH, No Social Issues, Heme/Lymph: No Bruising, No Bleeding,No Lymphadenopathy Endocrine : No Polyuria, No Polydipsia, No Temperature Intolerance [facility] Past Medical History Medical History Hypercholesterolemia CHF (congestive heart failure) Atrial fibrillation Brain TIA Social History Social History Household Members: None Housing: Other Housing Other:: [facility] Do you presently have visiting nurse or other home services: No Patient Tobacco Use Status: Never used Tobacco Second Hand Smoke Exposure: No service: No Physical Exam 2 Vital Signs: Vital Signs: Last Vital Signs Temp 97.5 F 02/19/24 15:28 Pulse 98 02/19/24 15:28 Resp 18 02/19/24 15:28 BP 102/67 02/19/24 15:28 Pulse Ox 96 02/19/24 15:28 O2 Del Method Room Air 02/19/24 15:28 BMI result Body Mass Index 27.8 Const: Other: Appearance: Alert. Oriented X3. No acute distress. Eyes: Pupils equal, round and reactive to light. ENT: Pharynx normal. Neck: Normal inspection. Neck supple. No lymph nodes noted. No crepitus CVS: Normal heart rate and rhythm. Pulses normal. Normal S1 and S2 Respiratory: No respiratory distress, bilateral crackles, no wheezing Abdomen: Soft and nontender. No rigidity. No distention. Skin: Skin warm and dry. Normal skin color. Normal skin turgor. Extremities: +1 pitting edema. No Lacerations. No Rash Neuro: Oriented X 3. No motor deficit. No sensory deficit. Moving all extremities. No slurred speech. CN 2 through 12 grossly intact Psych: calm, cooperative, normal affect Medications Administered Discontinued Medications Generic Name Dose Route Start Last Admin Trade Name Parthq PRN Reason Stop Dose Admin Amiodarone HCl 400 mg 02/18/24 21:00 02/19/24 08:31 Amiodarone Hcl 200 Mg Tablet PO 400 mg BID SOWMYA Administration Apixaban 5 mg 02/16/24 23:00 02/16/24 23:18 Apixaban 5 Mg Tablet PO 02/16/24 23:01 5 mg ONCE ONE Administration Apixaban 5 mg 02/17/24 09:00 02/19/24 08:31 Apixaban 5 Mg Tablet PO 5 mg BID SOWMYA Administration Ascorbic Acid 1,000 mg 02/17/24 09:00 02/19/24 08:31 Ascorbic Acid 500 Mg Tablet PO 1,000 mg DAILY SOWMYA Administration Atorvastatin Calcium 20 mg 02/17/24 09:00 02/19/24 08:30 Atorvastatin Calcium 20 Mg Tablet PO 20 mg DAILY SOWMYA Administration Calcium Carbonate 1,000 mg 02/17/24 09:00 02/19/24 08:30 Calcium Carbonate 500 Mg Tablet PO 1,000 mg DAILY SOWMYA Administration Cyanocobalamin 2,000 mcg 02/17/24 09:00 02/19/24 08:32 Cyanocobalamin (Vitamin B-12) 1,000 Mcg Tablet PO 2,000 mcg DAILY SOWMYA Administration Diltiazem HCl 10 mg 02/16/24 21:02 02/16/24 21:10 Diltiazem Hcl 50 Mg/10 Ml Vial IVPUSH 02/16/24 21:03 10 mg STAT STA Administration Diltiazem HCl 10 mg 02/16/24 23:02 02/16/24 23:18 Diltiazem Hcl 50 Mg/10 Ml Vial IVPUSH 02/16/24 23:03 10 mg STAT STA Administration Furosemide 40 mg 02/16/24 23:14 02/16/24 23:38 Furosemide 40 Mg/4 Ml Vial IVPUSH 02/16/24 23:15 40 mg STAT STA Administration Protocol Furosemide 20 mg 02/17/24 09:00 02/18/24 09:36 Furosemide 20 Mg/2 Ml Vial IVPUSH 20 mg DAILY SOWMYA Administration Protocol Furosemide 20 mg 02/18/24 10:25 02/18/24 11:20 Furosemide 20 Mg/2 Ml Vial IVPUSH 02/18/24 10:26 20 mg ONCE ONE Administration Protocol Furosemide 20 mg 02/19/24 09:45 02/19/24 09:55 Furosemide 20 Mg Tablet PO 20 mg DAILY SOWMYA Administration Protocol Sodium Chloride 1,000 mls @ 500 mls/hr 02/18/24 12:45 02/18/24 15:22 Ns IVCONT 02/18/24 14:44 Infused .Q2H SOWMYA Infusion Sodium Chloride 1,000 mls @ 150 mls/hr 02/18/24 14:00 02/19/24 07:31 Ns IVCONT Infused .Q6H40M SOWMYA Infusion Losartan Potassium 25 mg 02/18/24 20:45 02/19/24 08:30 Losartan Potassium 25 Mg Tablet PO 25 mg DAILY SOWMYA Administration Protocol Magnesium Oxide 400 mg 02/17/24 09:00 02/19/24 08:31 Magnesium Oxide 400 Mg Tablet PO 400 mg DAILY SOWMYA Administration Metoprolol Succinate 25 mg 02/19/24 09:00 02/19/24 08:31 Metoprolol Succinate Er 25 Mg Tab.Er.24h PO 25 mg DAILY SOWMYA Administration Protocol Metoprolol Tartrate 25 mg 02/17/24 00:26 02/17/24 02:28 Metoprolol Tartrate 25 Mg Tablet PO 02/17/24 00:27 25 mg ONCE STA Administration Protocol Metoprolol Tartrate 25 mg 02/17/24 09:00 02/17/24 20:52 Metoprolol Tartrate 25 Mg Tablet PO 25 mg BID SOWMYA Administration Protocol Metoprolol Tartrate 25 mg 02/18/24 09:00 02/18/24 16:03 Metoprolol Tartrate 25 Mg Tablet PO Not Given Q6H SOWMYA Protocol Ondansetron HCl 4 mg 02/17/24 09:58 02/17/24 10:28 Ondansetron Hcl 4 Mg/2 Ml Vial IVPUSH 4 mg Q8H PRN Administration Nausea and Vomiting Sodium Chloride 3 ml 02/17/24 08:00 02/19/24 08:30 0.9 % Sodium Chloride Flush 3 Ml Syringe IVFLUSH 3 ml QSHIFT SOWMYA Administration Vitamin D 50 mcg 02/17/24 09:00 02/19/24 08:31 Cholecalciferol (Vitamin D3) 25 Mcg Tablet PO 50 mcg DAILY SOWMYA Administration Zinc Sulfate 220 mg 02/17/24 09:00 02/19/24 08:30 Zinc Sulfate 220 Mg Capsule PO 220 mg DAILY SOWMYA Administration Medical Decision Making Medical Decision Making [facility] Narrative: -patient came in with a heart rate in the 150s with a blood pressure 132/90. -my interpretation of EKG: Atrial fibrillation with RVR, heart rate 125, no ST segment depression or elevation, no T-wave inversion, QTC 398. -patient was given a dose of IV Cardizem 10 mg. -patient responded well, heart rate dropped to the low 100s, blood pressure in the 130 systolic. -shortly after, I was informed by the patient's nurse that the heart rate once again increased to the 120s. -patient was giving a 2nd dose of 10 mg Cardizem IV. -my interpretation of labs: Normal hematology, chemistry shows a BNP of 1788, new onset, troponin 34.5 likely secondary to elevated heart rate and BNP. Slightly bumped bilirubin levels, likely secondary to elevated BNP. -my interpretation of chest x-ray, trace bilateral pleural effusion, vascular congestion -patient's CHADS2 Vasc 2 score is 6, points given for age, female, CHF, TIA -I discussed with the patient the risks versus benefits of starting a blood thinner. Choices of blood thinners were discussed with the patient as well, Patient discuss it with her son, she is agreeable to start Eliquis. -1st dose given Eliquis 5 mg in the ED -I discussed the patient with Dr. Menjivar, patient being admitted Differential Diagnosis Differential Diagnoses: The differential diagnosis associated with the presentation includes (Atrial fibrillation with RVR, atrial flutter, CHF) Admission/Observation Consideration of admission/observation: Escalation of care including admission/observation considered Consult Healthcare Provider Management of the patient was discussed with: Hospitalist Lab Data [facility] Lab Attestation statement: I reviewed the patient's lab results. 02/17/24 07:02 02/18/24 05:42 Labs: Lab Results 03/24/24 03/24/24 Range/Units 20:51 21:32 WBC 8.3 (4.8-10.8) X10*3/uL RBC 4.17 L D (4.20-5.50) X10*6/uL Hgb 13.7 D (12.0-16.0) g/dl Hct 40.5 D (37.0-47.0) % MCV 97.1 (80.0-98.0) fL MCH 32.9 (27.0-33.0) pg MCHC 33.8 (31.0-35.0) g/dl RDW 15.0 (11.0-16.0) % Plt Count 179 (160-400) X10*3/uL MPV 9.5 (9.4-12.3) fL Immature Gran % (Auto) 0.2 (0.0-0.4) % Neut % (Auto) 55.0 (45-73) % Lymph % (Auto) 32.8 (20-40) % [place] % (Auto) 5.3 (2-11) % Eos % (Auto) 5.7 H (0-4) % Baso % (Auto) 1.0 (0-2) % Lymph # (Auto) 2.7 (1.2-4.9) X10*3/uL [place] # (Auto) 0.4 (0.1-1.2) X10*3/uL Eos # (Auto) 0.5 H (0.0-0.4) X10*3/uL Baso # (Auto) 0.1 (0.0-0.2) X10*3/uL Abs Immat Gran (auto) 0.02 (0.00-0.03) X10*3/uL Absolute Neuts (auto) 4.6 (2.0-8.3) x10*3/uL Absolute Nucleated RBC 0.000 (0.0-0.012) X10*3/uL Nucleated RBC % (auto) 0.0 (0.0-0.2) /100WBC Sodium 135 (135-145) mmol/L Potassium 4.7 (3.3-5.1) mmol/L Chloride 105 (96-108) mmol/L Carbon Dioxide 20 L (22-29) mmol/L Anion Gap 15 (12-20) BUN 17 H (9-16) mg/dL Creatinine 0.80 (0.5-1.4) mg/dL Estim Creat Clear Calc 45.1 Estimated GFR > 60 Random Glucose 121 H (60-115) mg/dL Calcium 8.8 (8.4-10.2) mg/dL Total Bilirubin 1.9 H (0.0-1.0) mg/dL AST 36 H (5-31) U/L ALT 46 H (0-31) U/L Alkaline Phosphatase 78 (39-117) U/L Troponin I High Sens 34.5 H D (<3.5-17.0) ng/L B-Natriuretic Peptide 1788 H (<100) pg/mL Total Protein 6.5 (6.5-8.0) g/dL Albumin 3.8 (3.5-5.0) g/dL Independent Interpretation I performed an independent interpretation of an: EKG and Plain X-Ray Radiology Impression Discussion of test interpretation with radiology: I have reviewed the radiologist's reading. Radiologist Impression: Lung volumes are symmetric. There is increased prominence of the central vasculature and interstitium diffusely compared to prior, suspicious for interstitial edema. No evidence of pneumothorax. Trace pleural effusions are suspected. There is subtle patchy opacity at the right lung base. Cardiac silhouette is mildly enlarged. Calcification is present at the aortic arch. No acute osseous findings are seen. XR/XR chest 1V IMPRESSION: Increased prominence of the central vasculature and interstitium, suspicious for interstitial edema. Subtle patchy right basilar opacity. Independent Historian Clinical information obtained from an independent historian. History obtained from or confirmed by: Other (Patient's son) Critical Care Time Critical Care Time Critical Care Time: Yes Total Critical Care Time: 75 Attestation: I have personally provided critical care time. Time includes review of lab data, radiology results, discussion with consultants, and monitoring for potential decompensation. Intervention performed as documented. Discharge Plan Discharge Clinical Impression: Atrial fibrillation, Pulmonary edema Patient Disposition: Admitted As Inpatient Interventions: Admission Worksheet (ED) Last Done: 02/17/24 23:56 Discharge Date/Time: 02/18/24 00:26
--- NOTE | 2024-02-16 23:03 | PC.NURSE ---
heart rate ranging 105-125 bp 122/91. Dr. gutierrez aware.
[2024-02-16] MEDS: Apixaban 5 MG TABLET PO (23:18)
[2024-02-16] MEDS: Furosemide 40 MG/4 ML VIAL IVPUSH (23:38)
--- NOTE | 2024-02-16 23:40 | PC.NURSE ---
amber provided for pt. pt medicated per jan. afib on monitor heart rate 80s-90s. bp wnl. nad. call new within reach.
[2024-02-17] VITALS (9 sets, daily range): BP systolic 108–128; BP diastolic 64–100; PULSE 89–109; RESP 15–22; TEMP 36.4–36.5; O2SAT 94–98
--- NOTE | 2024-02-17 01:06 | P.HPHOSP_ITS ---
History of Present Illness Date of Service: 02/17/24 Attending physician on admission: Leeroy Moreno Chief Complaint: Shortness on breath Sharla Rodriguez is a very pleasant 88 years old woman with past medical history remarkable for hyperlipidemia presents to the emergency department complaining of worsening shortness of breath mostly on exertion. She mentioned that over the last 2 months she has been having episodes of shortness on breath while walking and palpitations. Noted mild swelling to the lower extremities. She denies any chest pain, cough, headache, dizziness, fevers chills. Denied any acute gastrointestinal or genitourinary symptoms. No history of hypertension, cardiac arrhythmia, stroke or congestive heart failure. No history of tobacco smoking, alcohol abuse or illicit drug use. In the ED, she was found to have tachycardia consistent with rapid atrial fibrillation. O2 sat normal on RA. Blood pressure is stable. Blood workup showed no leukocytosis. Hemoglobin is normal. BNP is markedly elevated 1788 and troponin trend 84.5 No significant electrolyte imbalances noted. Creatinine is 8.0. AST, ALT and total bilirubin are elevated. Alk-phos is normal. CXR showed increased prominence of the central vasculature and interstitial suspicious for interstitial edema and subtle patchy right basilar opacity. ECG showed atrial fibrillation with rapid ventricular response with HR [address] and T-wave abnormality. ED tx: Diltiazem 20 mg IV (total), Eliquis 5 mg PO, furosemide 40 mg IV Review of Systems 2 Review of Systems: All 12 systems were reviewed and normal except as noted in HPI. [facility] Medical History (Updated 02/17/24 @ 01:49 by Leeroy Moreno MD) CHF (congestive heart failure) Atrial fibrillation Brain TIA Social History Patient Tobacco Use Status: Never used Tobacco Smoked in Last 30 Days: No Use of substances other than those prescribed or required for medical reasons: No Advance Directives: No Advance Directives Information Provided: No Meds Allergies Allergy/AdvReac Type Severity Reaction Status Date / Time simvastatin Allergy Mild Rash Verified 02/16/24 20:45 Active Medications: Current Medications Acetaminophen (Acetaminophen 325 Mg Tablet) 650 mg PO Q6H PRN PRN Reason: Pain, Mild (Pain Scale 1-3) Atorvastatin Calcium (Atorvastatin Calcium 20 Mg Tablet) 20 mg PO DAILY SOWMYA Calcium Carbonate (Calcium Carbonate 500 Mg Tablet) 1,000 mg PO DAILY [facility] Cyanocobalamin (Cyanocobalamin (Vitamin B-12) 1,000 Mcg Tablet) 2,000 mcg PO DAILY [facility] Furosemide (Furosemide 20 Mg/2 Ml Vial) 20 mg IVPUSH DAILY SOWMYA; Protocol Magnesium Oxide (Magnesium Oxide 400 Mg Tablet) 400 mg PO DAILY [facility] Metoprolol Tartrate (Metoprolol Tartrate 25 Mg Tablet) 25 mg PO ONCE STA; Protocol Stop: 02/17/24 00:27 Metoprolol Tartrate (Metoprolol Tartrate 25 Mg Tablet) 25 mg PO BID SOWMYA; Protocol Non-Formulary Medication ([place]ett [id number]-Fish Oil [Fish Oil]) 1 cap PO BID [facility] Non-Formulary Medication (Zinc Sulfate) 50 mg PO DAILY [facility] Sodium Chloride (0.9 % Sodium Chloride Flush 3 Ml Syringe) 3 ml IVFLUSH QSHIFT [facility] Vitamin D (Cholecalciferol (Vitamin D3) 25 Mcg Tablet) 50 mcg PO DAILY [facility] Home Medications Medication Instructions Recorded Confirmed Last Taken Type atorvastatin 20 mg tablet 20 mg PO DAILY 08/31/22 02/16/24 Unknown History ascorbic acid (vitamin C) 1,000 mg 1,000 mg PO DAILY 11/22/22 02/16/24 Unknown History tablet calcium carbonate 500 mg calcium 1,000 mg PO DAILY 11/22/22 02/16/24 Unknown History (1,250 mg) tablet cholecalciferol (vitamin D3) 50 50 mcg PO DAILY 11/22/22 02/16/24 Unknown History mcg (2,000 unit) tablet cyanocobalamin (vitamin B-12) 2,000 mcg PO DAILY 11/22/22 02/16/24 Unknown History 2,000 mcg tablet magnesium oxide 400 mg PO DAILY 11/22/22 02/16/24 Unknown History omega 8-kyu-byx-fish oil 1,000 mg 1 cap PO BID 11/22/22 02/16/24 Unknown History (120 mg-180 mg) capsule (Fish Oil) zinc sulfate 50 mg zinc (220 mg) 50 mg PO DAILY 11/22/22 02/16/24 Unknown History tablet Physical Exam 2 Vital Signs and Narrative: Vital Signs: Last Vital Signs Temp 97.6 F 02/16/24 21:16 Pulse 87 02/16/24 23:38 Resp 14 02/16/24 23:38 BP 122/79 02/16/24 23:38 Pulse Ox 93 02/16/24 23:38 O2 Del Method Room Air 02/16/24 23:38 BMI result Body Mass Index 27.8 Constitutional - Awake and Alert, No apparent distress. Afebrile. HEENT - Atraumatic. Normocephalic. Normal sclerae. Equally round. Heart - Normal rate. Irregular rhythm. Lungs - Normal lung expansion, Normal respiratory effort, No respiratory distress, no tachypnea. Decreased breath sound at bases. Abdomen - NT / ND; +BS; No rebound or guarding Extremities - Minimal pitting edema. No tenderness Musculoskeletal - Normal inspection, normal ROM Skin - Warm/Dry Neurological - Alert & oriented x3. No focal weakness grossly noted. Normal speech. Psychological - Appropriate affect Results Labs 02/16/24 20:51 02/16/24 21:32 Labs: Laboratory Results - last 24 hr 02/16/24 02/16/24 20:51 21:32 MCV 97.1 MCH 32.9 MCHC 33.8 RDW 15.0 Plt Count 179 MPV 9.5 Immature Gran % (Auto) 0.2 Neut % (Auto) 55.0 Lymph % (Auto) 32.8 [place] % (Auto) 5.3 Eos % (Auto) 5.7 H Baso % (Auto) 1.0 Lymph # (Auto) 2.7 [place] # (Auto) 0.4 Eos # (Auto) 0.5 H Baso # (Auto) 0.1 Abs Immat Gran (auto) 0.02 Absolute Neuts (auto) 4.6 Absolute Nucleated RBC 0.000 Nucleated RBC % (auto) 0.0 Anion Gap 15 Estim Creat Clear Calc 45.1 Estimated GFR > 60 Random Glucose 121 H Calcium 8.8 Total Bilirubin 1.9 H AST 36 H ALT 46 H Alkaline Phosphatase 78 Troponin I High Sens 34.5 H D B-Natriuretic Peptide 1788 H Total Protein 6.5 Albumin 3.8 Imaging Radiologist's Impressions: Impressions Chest X-Ray 02/16/24 21:05 IMPRESSION: Increased prominence of the central vasculature and interstitium, suspicious for interstitial edema. Subtle patchy right basilar opacity. Assessment and Plan (1) Pulmonary edema: Qualifiers: Chronicity: acute Qualified Code(s): J81.0 - Acute pulmonary edema Status: Acute (2) Hypercholesterolemia: Status: Acute (3) Atrial fibrillation: Qualifiers: Atrial fibrillation type: unspecified Qualified Code(s): I48.91 - Unspecified atrial fibrillation Status: Acute (4) Elevated transaminase level: Status: Acute (5) Elevated bilirubin: Status: Acute Plan Sharla Rodriguez is a very pleasant 88 years old woman with past medical history remarkable for hyperlipidemia * Atrial fibrillation with rapid ventricular response, heart rate improving. New diagnosis. Admit to hospitalist service. Telemetry. Start treatment with metoprolol tartrate 25 mg p.o. b.i.d and Eliquis 5 mg p.o. b.i.d.. Check TTE. Cardiology consult for further recommendations. * Elevated troponin. Secondary to CHF or demand ischemia. Recheck troponin. * Pulmonary edema, likely underlying heart failure. Continue Lasix and check echocardiogram. * Elevated transaminases and bilirubin. ? Hepatic congestion. Check abdominal ultrasound. Continue to monitor LFTs. * Hyperlipidemia. Continue statin. DVT prophylaxis: Eliquis Code status: Full Patient will need hospitalization for at least 2 midnights for atrial fibrillation evaluation and treatment with rate control agents, anticoagulation and close monitoring of vital signs. Patient will also need evaluation by subspecialty. Quality Stroke Does the patient have a stroke diagnosis?: No VTE Prior VTE?: No VTE Risk Level:: Medical - moderate - high VTE Device Contraindication: Treatment Not Indicated VTE Drug Contraindication: Treatment Not Indicated
--- NOTE | 2024-02-17 02:16 | PC.NURSE ---
delay in med administration d/t med not being verified by pharmacy.
[2024-02-17] MEDS: Metoprolol Tartrate 25 MG TABLET PO ×3 (02:28→20:52)
--- NOTE | 2024-02-17 03:26 | PC.NURSE ---
pt had large uo as documented; 1 incontinent episode d/t purewick malfunction. bedding changed lelia care provided pt repositioned. new purewick in place. call new within reach.
[2024-02-17 03:27] LABS: Troponin-I High Sensitivity 33.1 ng/L (<3.5-17.0)
--- NOTE | 2024-02-17 04:12 | PC.NURSE ---
heart rate sustaining 80-90s however episodes of jumping to 115-120s lasting a few seconds. pt denies cp/sob/dizziness at this time. Dr. Otto Moreno aware.
--- NOTE | 2024-02-17 07:18 | MHC.EDTECH ---
Pt found to be incontinent of urine. Bedding changed done, Pt cleaned and repositioned. New purewick placed. 800ml of urine emptied from canister and documented. Pt given her breakfast and call new within reach.
[2024-02-17 07:20] LABS: MANUAL DIFF FLAG NO
[2024-02-17 07:22] LABS: Basophils Absolute Auto 0.1 X10*3/uL (0.0-0.2); Basophils Percent Auto 0.7 % (0-2); Eosinophils Absolute Auto 0.6 X10*3/uL (0.0-0.4); Eosinophils Percent Auto 6.5 % (0-4); Hemoglobin 13.7 g/dl (12.0-16.0); Imm Gran Abs Auto 0.03 X10*3/uL (0.00-0.03); Imm Gran Pct Auto 0.3 % (0.0-0.4); Lymphocytes Absolute Auto 2.4 X10*3/uL (1.2-4.9); Mean Corpuscular HGB Conc 34.3 g/dl (31.0-35.0); Mean Corpuscular Hemoglobin 33.2 pg (27.0-33.0); Mean Corpuscular Volume 96.9 fL (80.0-98.0); Mean Platelet Volume 9.6 fL (9.4-12.3); Monocytes Absolute Auto 0.5 X10*3/uL (0.1-1.2); Monocytes Percent Auto 5.4 % (2-11); Neutrophils Absolute Auto 5.9 x10*3/uL (2.0-8.3); Neutrophils Percent Auto 62.1 % (45-73); Platelet Count 178 X10*3/uL (160-400); Red Blood Count 4.13 X10*6/uL (4.20-5.50); Red Cell Distribution Width 14.7 % (11.0-16.0); White Blood Count 9.4 X10*3/uL (4.8-10.8)
--- NOTE | 2024-02-17 07:36 | PC.NURSE ---
this RN resumed care of pt at this time. a&ox4. vss and up to date. pt remains afib on the lunchroom monitor - HR fluctuates between 100-110s. HR increases into 120s w/ exertion. pt has no acute complaints at this time. denies pain. no sob/wob noted while conversating. respirations even and unlabored. pt waiting for ultrasound and echocardiogram to be completed at this time. pt currently remains in ED/in no apparent distress at this time. pt also waiting for bed assignment. plan of care ongoing. call new placed within reach.
[2024-02-17 08:00] LABS: Alanine Aminotransferase 46 U/L (0-31); Albumin Level 3.8 g/dL (3.5-5.0); Alkaline Phosphatase 75 U/L (39-117); Anion Gap 15 (12-20); Aspartate Amino Transferase 44 U/L (5-31); Blood Urea Nitrogen 14 mg/dL (9-16); Calcium 8.8 mg/dL (8.4-10.2); Carbon Dioxide 21 mmol/L (22-29); Chloride 103 mmol/L (96-108); Creatinine Clr Calc Pharmacy 47.4; Estimated Glomerular Filt Rate > 60; Glucose Random 114 mg/dL (60-115); Potassium 4.6 mmol/L (3.3-5.1); Sodium 134 mmol/L (135-145)
[2024-02-17] MEDS: 0.9 % Sodium Chloride Flush 3 ML SYRINGE IVFLUSH ×2 (08:22→15:45)
[2024-02-17] MEDS: Cyanocobalamin (Vitamin B-12) 1,000 MCG TABLET 2000 MCG PO (08:24)
[2024-02-17] MEDS: Apixaban 5 MG TABLET PO ×2 (08:24→20:52)
[2024-02-17] MEDS: Atorvastatin Calcium 20 MG TABLET PO (08:24)
[2024-02-17] MEDS: Ascorbic Acid 500 MG TABLET 1000 MG PO (08:24)
[2024-02-17] MEDS: Cholecalciferol (Vitamin D3) 25 MCG TABLET 50 MCG PO (08:24)
[2024-02-17] MEDS: Furosemide 20 MG/2 ML VIAL IVPUSH (08:24)
[2024-02-17] MEDS: Magnesium Oxide 400 MG TABLET PO (08:24)
--- NOTE | 2024-02-17 08:37 | PC.NURSE ---
medication administered per provider order. pharmacy called d/t zinc not being available in pyxis. will administer when able. pt's family members - gladys/moira asked for status update on pt. pt ok'd for information to be relayed.
[2024-02-17] MEDS: Zinc Sulfate 220 MG CAPSULE PO (08:47)
--- NOTE | 2024-02-17 08:47 | PC.NURSE ---
medication delivered from pharmacy/administered. ultrasound bedside.
--- NOTE | 2024-02-17 09:39 | PHA.MEDREC ---
Pharmacy Consult ? Medication Reconciliation Pharmacy has completed the medication reconciliation. Spoke to patient and confirmed medication list.
--- NOTE | 2024-02-17 09:48 | P.PNIM_ITS ---
Subjective Subjective Date of Service: 02/17/24 Interval History: f/u on new onset afib, heart itnerval history: heart rate is controlled, she feels less sob Physical Exam 2 Vital Signs: Vital Signs: Last Vital Signs Temp 97.5 F 02/17/24 06:00 Pulse 89 02/17/24 06:00 Resp 20 02/17/24 06:00 BP 121/81 02/17/24 06:00 Pulse Ox 95 02/17/24 06:00 O2 Del Method Room Air 02/17/24 06:00 BMI result Body Mass Index 27.8 General: AO X 3, no acute distress Resp: CTA bilateral CVS: S1,S2, ireglar iregular, 1+ leg edema GI: +BS, NT, no distention Skin: No rash Neuro: motor grossly intact Psych: appropriate affect Objective Data Active Medications Acetaminophen (Acetaminophen 325 Mg Tablet) 650 mg PO Q6H PRN PRN Reason: Pain, Mild (Pain Scale 1-3) Apixaban (Apixaban 5 Mg Tablet) 5 mg PO BID [facility] Last Admin: 02/17/24 08:24 Dose: 5 mg Documented By: GIOVANNA Ascorbic Acid (Ascorbic Acid 500 Mg Tablet) 1,000 mg PO DAILY [facility] Last Admin: 02/17/24 08:24 Dose: 1,000 mg Documented By: GIOVANNA Atorvastatin Calcium (Atorvastatin Calcium 20 Mg Tablet) 20 mg PO DAILY [facility] Last Admin: 02/17/24 08:24 Dose: 20 mg Documented By: GIOVANNA Calcium Carbonate (Calcium Carbonate 500 Mg Tablet) 1,000 mg PO DAILY [facility] Last Admin: 02/17/24 08:24 Dose: 1,000 mg Documented By: GIOVANNA Cyanocobalamin (Cyanocobalamin (Vitamin B-12) 1,000 Mcg Tablet) 2,000 mcg PO DAILY [facility] Last Admin: 02/17/24 08:24 Dose: 2,000 mcg Documented By: GIOVANNA Furosemide (Furosemide 20 Mg/2 Ml Vial) 20 mg IVPUSH DAILY [facility]; Protocol Last Admin: 02/17/24 08:24 Dose: 20 mg Documented By: GIOVANNA Magnesium Oxide (Magnesium Oxide 400 Mg Tablet) 400 mg PO DAILY [facility] Last Admin: 02/17/24 08:24 Dose: 400 mg Documented By: GIOVANNA Metoprolol Tartrate (Metoprolol Tartrate 25 Mg Tablet) 25 mg PO BID [facility]; Protocol Last Admin: 02/17/24 08:25 Dose: 25 mg Documented By: GIOVANNA Sodium Chloride (0.9 % Sodium Chloride Flush 3 Ml Syringe) 3 ml IVFLUSH QSHIFT [facility] Last Admin: 02/17/24 08:22 Dose: 3 ml Documented By: GIOVANNA Vitamin D (Cholecalciferol (Vitamin D3) 25 Mcg Tablet) 50 mcg PO DAILY [facility] Last Admin: 02/17/24 08:24 Dose: 50 mcg Documented By: GIOVANNA Zinc Sulfate (Zinc Sulfate 220 Mg Capsule) 220 mg PO DAILY [facility] Last Admin: 02/17/24 08:47 Dose: 220 mg Documented By: GIOVANNA Labs 02/17/24 07:02 02/17/24 07:02 Labs: Laboratory Results - last 24 hr 02/16/24 02/16/24 02/17/24 20:51 21:32 02:57 MCV 97.1 MCH 32.9 MCHC 33.8 RDW 15.0 Plt Count 179 MPV 9.5 Immature Gran % (Auto) 0.2 Neut % (Auto) 55.0 Lymph % (Auto) 32.8 [place] % (Auto) 5.3 Eos % (Auto) 5.7 H Baso % (Auto) 1.0 Lymph # (Auto) 2.7 [place] # (Auto) 0.4 Eos # (Auto) 0.5 H Baso # (Auto) 0.1 Abs Immat Gran (auto) 0.02 Absolute Neuts (auto) 4.6 Absolute Nucleated RBC 0.000 Nucleated RBC % (auto) 0.0 Anion Gap 15 Estim Creat Clear Calc 45.1 Estimated GFR > 60 Random Glucose 121 H Calcium 8.8 Total Bilirubin 1.9 H AST 36 H ALT 46 H Alkaline Phosphatase 78 Troponin I High Sens 34.5 H D 33.1 H B-Natriuretic Peptide 1788 H Total Protein 6.5 Albumin 3.8 02/17/24 07:02 MCV 96.9 MCH 33.2 H MCHC 34.3 RDW 14.7 Plt Count 178 MPV 9.6 Immature Gran % (Auto) 0.3 Neut % (Auto) 62.1 Lymph % (Auto) 25.0 [place] % (Auto) 5.4 Eos % (Auto) 6.5 H Baso % (Auto) 0.7 Lymph # (Auto) 2.4 [place] # (Auto) 0.5 Eos # (Auto) 0.6 H Baso # (Auto) 0.1 Abs Immat Gran (auto) 0.03 Absolute Neuts (auto) 5.9 Absolute Nucleated RBC 0.000 Nucleated RBC % (auto) 0.0 Anion Gap 15 Estim Creat Clear Calc 47.4 Estimated GFR > 60 Random Glucose 114 Calcium 8.8 Total Bilirubin 2.0 H AST 44 H ALT 46 H Alkaline Phosphatase 75 Troponin I High Sens B-Natriuretic Peptide Total Protein 7.0 Albumin 3.8 Assessment and Plan (1) Elevated bilirubin: Status: Acute (2) Elevated transaminase level: Status: Acute (3) Atrial fibrillation: Status: Acute Plan 88 years old woman with past medical history remarkable for hyperlipidemia Atrial fibrillation with rapid ventricular response, new onset, rate controlled. -rate control with metoprolol, echo today, eliquis for stroke prevention, cardiologgy consult pending Elevated troponin. likely from AFIB, trop Flat Pulmonary edema, new onset heart failure likely underlying systolic heart failure. Continue IV Lasix and check echocardiogram. Cardiology input Elevated transaminases and bilirubin. ? Hepatic congestion. Check abdominal ultrasound. Continue to monitor LFTs. Hyperlipidemia. Continue statin. DVT Prophylaxis--eliquis need for inpatient; work up fro new AFIB with associated heart failure Quality Stroke Does the patient have a stroke diagnosis?: No VTE Prior VTE?: No VTE Risk Level:: Medical - moderate - high VTE Device Contraindication: Treatment Not Indicated VTE Drug Contraindication: Treatment Not Indicated
--- NOTE | 2024-02-17 09:57 | MHC.CM.PN ---
Met with patient in regards to discharge planning. Patient lives alone, ambulates independently and had no services prior to coming to the hospital. PCP verified as Dr William Cherry. Patient has a HCP. Her daughter has a copy. Patient will attempt to obtain a copy. IMM explained and signed. Patient's son will transport her home when medically stable. Continue to monitor for d/c needs.
[2024-02-17] MEDS: ondansetron HCL 4 MG/2 ML VIAL IVPUSH (10:28)
--- NOTE | 2024-02-17 10:34 | PC.NURSE ---
pt actively vomiting - prn medication administered per provider order. effectiveness pending. pt incontinent of urine despite purewick being placed. incontinence care performed. fresh linen/pads applied. pt now resting comfortably in bed in no apparent distress. call new placed within reach.
--- NOTE | 2024-02-17 12:37 | P.CONCA_ITS ---
History of Present Illness History of Present Illness Date of Service: 02/17/24 Requesting physician: Linus Camp Chief complaint: Pulmonar Edema Narrative: 88-year-old female presenting with congestive heart failure and atrial fibrillation which is a new diagnosis. Over the last few days she has been getting progressively short of breath with activity. With these symptoms she came to the ER and was noted to be in AFib with RVR. BNP was 1 788. Chest x- ray showed interstitial edema. She was given IV diuretics and was also given IV diltiazem and then put on oral metoprolol. Her heart rates are well controlled currently. She was nauseous this morning but received some Zofran and is improving. She is denying any chest discomfort. Troponins were flat. Imaging, EKG and labs reviewed. [facility] Past Medical History Medical History (Updated 02/17/24 @ 01:49 by Leeroy Moreno MD) CHF (congestive heart failure) Atrial fibrillation Brain TIA Social History Social History Patient Tobacco Use Status: Never used Tobacco Smoked in Last 30 Days: No Use of substances other than those prescribed or required for medical reasons: No Advance Directives: No Advance Directives Information Provided: No Nutrition Risks: No Nutritional Risk service: No Meds Allergies Allergy/AdvReac Type Severity Reaction Status Date / Time simvastatin Allergy Mild Rash Verified 02/16/24 20:45 Active Medications: Current Medications Acetaminophen (Acetaminophen 325 Mg Tablet) 650 mg PO Q6H PRN PRN Reason: Pain, Mild (Pain Scale 1-3) Apixaban (Apixaban 5 Mg Tablet) 5 mg PO BID [facility] Last Admin: 02/17/24 08:24 Dose: 5 mg Ascorbic Acid (Ascorbic Acid 500 Mg Tablet) 1,000 mg PO DAILY [facility] Last Admin: 02/17/24 08:24 Dose: 1,000 mg Atorvastatin Calcium (Atorvastatin Calcium 20 Mg Tablet) 20 mg PO DAILY [facility] Last Admin: 02/17/24 08:24 Dose: 20 mg Calcium Carbonate (Calcium Carbonate 500 Mg Tablet) 1,000 mg PO DAILY [facility] Last Admin: 02/17/24 08:24 Dose: 1,000 mg Cyanocobalamin (Cyanocobalamin (Vitamin B-12) 1,000 Mcg Tablet) 2,000 mcg PO DAILY [facility] Last Admin: 02/17/24 08:24 Dose: 2,000 mcg Furosemide (Furosemide 20 Mg/2 Ml Vial) 20 mg IVPUSH DAILY [facility]; Protocol Last Admin: 02/17/24 08:24 Dose: 20 mg Magnesium Oxide (Magnesium Oxide 400 Mg Tablet) 400 mg PO DAILY [facility] Last Admin: 02/17/24 08:24 Dose: 400 mg Metoprolol Tartrate (Metoprolol Tartrate 25 Mg Tablet) 25 mg PO BID [facility]; Protocol Last Admin: 02/17/24 08:25 Dose: 25 mg Ondansetron HCl (Ondansetron Hcl 4 Mg/2 Ml Vial) 4 mg IVPUSH Q8H PRN PRN Reason: Nausea and Vomiting Last Admin: 02/17/24 10:28 Dose: 4 mg Sodium Chloride (0.9 % Sodium Chloride Flush 3 Ml Syringe) 3 ml IVFLUSH QSHIFT [facility] Last Admin: 02/17/24 08:22 Dose: 3 ml Vitamin D (Cholecalciferol (Vitamin D3) 25 Mcg Tablet) 50 mcg PO DAILY [facility] Last Admin: 02/17/24 08:24 Dose: 50 mcg Zinc Sulfate (Zinc Sulfate 220 Mg Capsule) 220 mg PO DAILY [facility] Last Admin: 02/17/24 08:47 Dose: 220 mg Home Medications Medication Instructions Recorded Confirmed Last Taken Type atorvastatin 20 mg tablet 20 mg PO DAILY 08/31/22 02/17/24 02/16/24 History ascorbic acid (vitamin C) 1,000 mg 1,000 mg PO DAILY 11/22/22 02/17/24 02/16/24 History tablet calcium carbonate 500 mg calcium 1,000 mg PO DAILY 11/22/22 02/17/24 02/16/24 History (1,250 mg) tablet cholecalciferol (vitamin D3) 50 50 mcg PO DAILY 11/22/22 02/17/24 02/16/24 History mcg (2,000 unit) tablet cyanocobalamin (vitamin B-12) 2,000 mcg PO DAILY 11/22/22 02/17/24 02/16/24 History 2,000 mcg tablet magnesium oxide 400 mg PO DAILY PRN Cramps 11/22/22 02/16/24 Unknown History omega 1-[id number]-[id number]-fish oil 1,000 mg 1 cap PO BID 11/22/22 02/17/24 02/16/24 History (120 mg-180 mg) capsule (Fish Oil) zinc sulfate 50 mg zinc (220 mg) 50 mg PO DAILY 11/22/22 02/17/24 02/16/24 History tablet acetaminophen 500 mg tablet 500 mg PO DAILY PRN Pain 02/17/24 02/17/24 Unknown History Physical Exam 2 Vital Signs: Vital Signs: Last Vital Signs Temp 97.6 F 02/17/24 10:59 Pulse 92 02/17/24 10:59 Resp 16 02/17/24 10:59 BP 108/76 02/17/24 10:59 Pulse Ox 95 02/17/24 10:59 O2 Del Method Room Air 02/17/24 10:59 BMI result Body Mass Index 27.8 GENERAL APPEARANCE: in no acute distress, pleasant. NECK: no carotid bruit, + jugular venous distention. SKIN: no suspicious lesions, warm and dry. HEART: no murmurs, irregular rate and rhythm. LUNGS: Crackles at bases. ABDOMEN: soft, nontender. EXTREMITIES: no edema. PERIPHERAL PULSES: equal. NEUROLOGIC: No gross deficits, AAO X 3 Objective Labs and Meds 02/17/24 07:02 02/17/24 07:02 Lab results: Laboratory Results - last 24 hr 02/16/24 02/16/24 02/17/24 20:51 21:32 02:57 WBC 8.3 RBC 4.17 L D Hgb 13.7 D Hct 40.5 D MCV 97.1 MCH 32.9 MCHC 33.8 RDW 15.0 Plt Count 179 MPV 9.5 Immature Gran % (Auto) 0.2 Neut % (Auto) 55.0 Lymph % (Auto) 32.8 [place] % (Auto) 5.3 Eos % (Auto) 5.7 H Baso % (Auto) 1.0 Lymph # (Auto) 2.7 [place] # (Auto) 0.4 Eos # (Auto) 0.5 H Baso # (Auto) 0.1 Abs Immat Gran (auto) 0.02 Absolute Neuts (auto) 4.6 Absolute Nucleated RBC 0.000 Nucleated RBC % (auto) 0.0 Sodium 135 Potassium 4.7 Chloride 105 Carbon Dioxide 20 L Anion Gap 15 BUN 17 H Creatinine 0.80 Estim Creat Clear Calc 45.1 Estimated GFR > 60 Random Glucose 121 H Calcium 8.8 Total Bilirubin 1.9 H AST 36 H ALT 46 H Alkaline Phosphatase 78 Troponin I High Sens 34.5 H D 33.1 H B-Natriuretic Peptide 1788 H Total Protein 6.5 Albumin 3.8 02/17/24 07:02 WBC 9.4 RBC 4.13 L Hgb 13.7 Hct 40.0 MCV 96.9 MCH 33.2 H MCHC 34.3 RDW 14.7 Plt Count 178 MPV 9.6 Immature Gran % (Auto) 0.3 Neut % (Auto) 62.1 Lymph % (Auto) 25.0 [place] % (Auto) 5.4 Eos % (Auto) 6.5 H Baso % (Auto) 0.7 Lymph # (Auto) 2.4 [place] # (Auto) 0.5 Eos # (Auto) 0.6 H Baso # (Auto) 0.1 Abs Immat Gran (auto) 0.03 Absolute Neuts (auto) 5.9 Absolute Nucleated RBC 0.000 Nucleated RBC % (auto) 0.0 Sodium 134 L Potassium 4.6 Chloride 103 Carbon Dioxide 21 L Anion Gap 15 BUN 14 Creatinine 0.76 Estim Creat Clear Calc 47.4 Estimated GFR > 60 Random Glucose 114 Calcium 8.8 Total Bilirubin 2.0 H AST 44 H ALT 46 H Alkaline Phosphatase 75 Troponin I High Sens B-Natriuretic Peptide Total Protein 7.0 Albumin 3.8 Imaging Radiologist's impression: Impressions Chest X-Ray 02/16/24 21:05 IMPRESSION: Increased prominence of the central vasculature and interstitium, suspicious for interstitial edema. Subtle patchy right basilar opacity. Assessment and Plan (1) Pulmonary edema: Qualifiers: Chronicity: acute Qualified Code(s): J81.0 - Acute pulmonary edema Status: Acute (2) Atrial fibrillation: Qualifiers: Atrial fibrillation type: unspecified Qualified Code(s): I48.91 - Unspecified atrial fibrillation Status: Acute Plan Pleasant 88-year-old female presenting for new diagnosis of atrial fibrillation and congestive heart failure. She has not feeling any palpitations and I suspect that she has been in atrial fibrillation with long time. She also had a TIA in 2010 and at that time AFib was noted but she was not anticoagulated for some reason. In any case currently she is anticoagulation and agree with apixaban 5 mg twice a day. On metoprolol 25 mg twice a day and is fairly well controlled. Avoid any IV metoprolol or diltiazem for now. Agree with IV diuretics and would likely need 40 mg IV Lasix. Echocardiography to assess LV function and to rule out cardiomyopathy. We will follow along with you. Thank you for allowing me to participate in the care of your patient. Please feel free to contact me if you have any questions. Procedures Date of Service Date of Service: 02/17/24
--- NOTE | 2024-02-17 18:29 | PC.NURSE ---
vss and up to date. afib on the monitor and storage bin tender - 90s-100s bpm. pt denies pain. no sob/wob noted. respirations remain even and unlabored. pt sitting upright eating dinner at this time. pt continues to wait for bed assignment. plan of care ongoing. call new placed within reach.
--- NOTE | 2024-02-17 20:54 | PC.NURSE ---
pt medicated per mar with bedtime meds, took meds whole with water no issues, pt A&Ox4, answering questions appropriately. 96% on room air. HR afib on monitor 88-110. call new within reach, pt offers no current complaints/in no apparent distress. plan of care ongoing
[2024-02-18] VITALS (9 sets, daily range): BP systolic 80–115; BP diastolic 52–80; PULSE 90–112; RESP 18–20; TEMP 36–36.9; O2SAT 92–98; BMI 26.6; BMI 23.2
[2024-02-18] MEDS: 0.9 % Sodium Chloride Flush 3 ML SYRINGE IVFLUSH ×2 (01:01→09:36)
[2024-02-18 06:24] LABS: Anion Gap 16 (12-20); Blood Urea Nitrogen 24 mg/dL (9-16); Calcium 8.9 mg/dL (8.4-10.2); Carbon Dioxide 24 mmol/L (22-29); Chloride 100 mmol/L (96-108); Creatinine Clr Calc Pharmacy 44.1; Estimated Glomerular Filt Rate > 60; Glucose Random 104 mg/dL (60-115); Potassium 3.8 mmol/L (3.3-5.1); Sodium 136 mmol/L (135-145)
--- NOTE | 2024-02-18 07:00 | CA_ITS ---
Transthoracic Echocardiogram Patient (Last, First, Middle): Sharla Rodriguez, Gender: Female Date of : 1935 Age: 88 Procedure Date: 02/18/2024 Procedure Type: Transthoracic Echocardiogram Location: [facility] [place] Height: 157.48 cm Weight: 68.95 kg BSA: 1.70 m2 Heart Rate: 113 bpm BP: 121 / 81 mmHg Computer Programming Professor: IRINEO Referring MD: Leeroy Moreno MD Symptoms: Rapid AFib, pulmonary edema Study Quality: Fair ECG Rhythm: Atrial Fibrillation Conclusions: - Normal left ventricular cavity size. There is mildly increased left ventricular wall thickness. The left ventricular systolic function is severely decreased. The visually estimated ejection fraction is between 10-15%. There is severe global hypokinesis. Diastolic function is indeterminate on the basis of available data. - Normal right ventricular cavity size. There is moderate to severely decreased right ventricular systolic function. - The left atrium is severely dilated. - There is moderate to severe mitral valve regurgitation. Findings Left Ventricle Normal left ventricular cavity size. There is mildly increased left ventricular wall thickness. The left ventricular systolic function is severely decreased. The visually estimated ejection fraction is between 10 15%. There is severe global hypokinesis. Diastolic function is indeterminate on the basis of available data. Right Ventricle Normal right ventricular cavity size. There is moderate to severely decreased right ventricular systolic function. Atria The left atrium is severely dilated. Aortic Valve There is a normal trileaflet aortic valve. There is no aortic valve stenosis. There is no aortic valve regurgitation. Mitral Valve The anterior mitral leaflet has restricted mobility and the posterior mitral leaflet has restricted mobility. There is moderate to severe mitral valve regurgitation. There is no mitral valve stenosis. Pulmonic Valve The pulmonic valve is likely normal. Tricuspid Valve Normal tricuspid valve structure. There is moderate tricuspid valve regurgitation. Moderately elevated right atrial pressure. There is no evidence of pulmonary hypertension. Great Vessels All visible segments of the aorta are normal in size. Venous The inferior vena cava is dilated and collapses greater than 50% with inspiration. Pericardium/Pleural There is no evidence of pericardial effusion. Prior Study Comparison No prior study available for comparison. Measurements 2D Linear Measurements IVSd: 1.07 0.6-0.9/0.6-1.0 cm LVIDd: 4.44 3.9-5.3/4.2-5.9 cm LVIDd Index: 2.61 2.4-3.2/2.2-3.1 cm/m2 LVIDs: 3.73 2.0-3.6 cm LVPWd: 1.44 0.7-1.1 cm LA Diam: 4.20 2.7-3.8/3.0-4.0 cm LAIDs Index: 2.47 1.5-2.3 cm/m2 LV Mass: 258.10 67-162/88-224 g LV Mass Index: 151.82 43-95/49-115 g/m2 LVOT Diam: 2.00 3.0+(-)1.3 cm 2D Systolic Function EF 4C: 20.50 >55% EF 2C: 19.30 >55% EF BiP: 18.20 >55% Mitral Valve MV Pk E: 0.95 MV Decel Time: 116.00 E'Lateral: 6.85 E'Medial: 4.79 E/E' Med: 19.80 E/E' Lat: 13.80 PHT: 34.00 MVA PHT: 6.47 Decel [place]: 8.15 MR Vol - PW Dopp: 37.80 MR VTI: 1.35 MR ERO: 28.00 MR Alias Marvel: 0.39 MR RAD: 0.70 Aortic Valve AoV Pk Marvel: 1.09 AoV Mn Marvel: 0.86 AoV VTI: 0.19 AoV Pk Grad: 5.00 Aov Mn Grad: 3.00 ILIA Cont.VTI: 0.84 LVOT LVOT Pk Marvel: 0.41 LVOT Mn Marvel: 0.29 LVOT VTI: 0.05 LVOT Pk Grad: 1.00 LVOT Mn Grad: 0.00 LVOT Diam: 2.00 LVOT Area: 3.14 Diastolic Function MV Pk E: 0.95 E'Medial: 4.79 E/E' Med: 19.80 E' Laterial: 6.85 E/E' Lat: 13.80 Right Ventricle TAPSE (mm): 10.40 TVS' Marvel: 4.90 Tricuspid Valve TR Pk Marvel: 2.39 TR Pk Grad: 23.00 RA Press: 8.00 RVSP: 31.00 Great Vessels Aorta Sinus of Valsalva: 3.20 2.0-3.5 cm Ao Asc: 3.30 2.1-3.4 cm Pulmonary Valve PV Pk Marvel: 0.53 Peak PV Grad: 1.00 Updated in Other Vendor System with Status of Final Momo Garcia MD electronically signed on 02/18/2024 8:35:44 PM with status of Final
[2024-02-18] MEDS: Zinc Sulfate 220 MG CAPSULE PO (09:33)
[2024-02-18] MEDS: Cyanocobalamin (Vitamin B-12) 1,000 MCG TABLET 2000 MCG PO (09:33)
[2024-02-18] MEDS: Metoprolol Tartrate 25 MG TABLET PO (09:34)
[2024-02-18] MEDS: Ascorbic Acid 500 MG TABLET 1000 MG PO (09:34)
[2024-02-18] MEDS: Atorvastatin Calcium 20 MG TABLET PO (09:34)
[2024-02-18] MEDS: Cholecalciferol (Vitamin D3) 25 MCG TABLET 50 MCG PO (09:34)
[2024-02-18] MEDS: Magnesium Oxide 400 MG TABLET PO (09:34)
[2024-02-18] MEDS: Apixaban 5 MG TABLET PO ×2 (09:34→21:55)
[2024-02-18] MEDS: Furosemide 20 MG/2 ML VIAL IVPUSH ×2 (09:36→11:20)
--- NOTE | 2024-02-18 10:33 | HO.PM.IMPN ---
Subjective Subjective Date of Service: 02/18/24 Interval History: f/u on new onset afib with RVR itnerval history: She is feels better, not sob, HR in 120s onvernight, Physical Exam Vital Signs: Vital Signs: Last Vital Signs Temp 97.0 F 02/18/24 07:38 Pulse 99 02/18/24 09:29 Resp 20 02/18/24 07:38 BP 115/80 02/18/24 09:29 Pulse Ox 92 02/18/24 09:29 O2 Del Method Room Air 02/18/24 07:38 BMI result Body Mass Index 23.2 Objective Data Active Medications Acetaminophen (Acetaminophen 325 Mg Tablet) 650 mg PO Q6H PRN PRN Reason: Pain, Mild (Pain Scale 1-3) Apixaban (Apixaban 5 Mg Tablet) 5 mg PO BID [facility] Last Admin: 02/18/24 09:34 Dose: 5 mg Documented By: SAMUEL Ascorbic Acid (Ascorbic Acid 500 Mg Tablet) 1,000 mg PO DAILY [facility] Last Admin: 02/18/24 09:34 Dose: 1,000 mg Documented By: SAMUEL Atorvastatin Calcium (Atorvastatin Calcium 20 Mg Tablet) 20 mg PO DAILY [facility] Last Admin: 02/18/24 09:34 Dose: 20 mg Documented By: SAMUEL Calcium Carbonate (Calcium Carbonate 500 Mg Tablet) 1,000 mg PO DAILY [facility] Last Admin: 02/18/24 09:33 Dose: 1,000 mg Documented By: SAMUEL Cyanocobalamin (Cyanocobalamin (Vitamin B-12) 1,000 Mcg Tablet) 2,000 mcg PO DAILY [facility] Last Admin: 02/18/24 09:33 Dose: 2,000 mcg Documented By: SAMUEL Furosemide (Furosemide 20 Mg/2 Ml Vial) 40 mg IVPUSH DAILY [facility]; Protocol Magnesium Oxide (Magnesium Oxide 400 Mg Tablet) 400 mg PO DAILY [facility] Last Admin: 02/18/24 09:34 Dose: 400 mg Documented By: SAMUEL Metoprolol Tartrate (Metoprolol Tartrate 25 Mg Tablet) 25 mg PO Q6H [facility]; Protocol Last Admin: 02/18/24 09:34 Dose: 25 mg Documented By: SAMUEL Ondansetron HCl (Ondansetron Hcl 4 Mg/2 Ml Vial) 4 mg IVPUSH Q8H PRN PRN Reason: Nausea and Vomiting Last Admin: 02/17/24 10:28 Dose: 4 mg Documented By: GIOVANNA Sodium Chloride (0.9 % Sodium Chloride Flush 3 Ml Syringe) 3 ml IVFLUSH QSHIFT [facility] Last Admin: 02/18/24 09:36 Dose: 3 ml Documented By: SAMUEL Vitamin D (Cholecalciferol (Vitamin D3) 25 Mcg Tablet) 50 mcg PO DAILY [facility] Last Admin: 02/18/24 09:34 Dose: 50 mcg Documented By: SAMUEL Zinc Sulfate (Zinc Sulfate 220 Mg Capsule) 220 mg PO DAILY [facility] Last Admin: 02/18/24 09:33 Dose: 220 mg Documented By: SAMUEL Labs 02/17/24 07:02 02/18/24 05:42 Labs: Laboratory Results - last 24 hr 02/18/24 05:42 Hold Purple Top SEE NOTE Anion Gap 16 Estim Creat Clear Calc 44.1 Estimated GFR > 60 Random Glucose 104 Calcium 8.9 Assessment and Plan (1) Elevated bilirubin: Status: Acute (2) Elevated transaminase level: Status: Acute (3) Atrial fibrillation: Status: Acute Plan 88 years old woman with past medical history remarkable for hyperlipidemia Atrial fibrillation with rapid ventricular response, new onset, rate in 120, -rate control with metoprolol increase dose of 25 q6, echo today, eliquis for stroke prevention, cardiologgy following Pulmonary edema/CHF, new onset heart failure likely underlying systolic heart failure. Continue IV Lasix and check echocardiogram. Cardiology following Elevated troponin. likely from AFIB, trop Flat Elevated transaminases and bilirubin. ? Hepatic congestion. Check abdominal ultrasound. Continue to monitor LFTs. Hyperlipidemia. Continue statin. DVT Prophylaxis--eliquis need for inpatient; work up fro new AFIB with associated heart failure being treated with IV diuretics Quality Stroke Does the patient have a stroke diagnosis?: No VTE Prior VTE?: No VTE Risk Level:: Medical - moderate - high VTE Device Contraindication: Treatment Not Indicated VTE Drug Contraindication: Treatment Not Indicated
--- NOTE | 2024-02-18 11:08 | PM.PNCARD ---
Subjective Subjective Date of Service: 02/18/24 Interval history: Seen examined at bedside. Clinically much improved. Apparently had some fast heart rates overnight and metoprolol dose was increased. Waiting for echocardiography. Physical Exam Vital Signs: Last Vital Signs Temp 97.0 F 02/18/24 07:38 Pulse 99 02/18/24 09:29 Resp 20 02/18/24 07:38 BP 115/80 02/18/24 09:29 Pulse Ox 92 02/18/24 09:29 O2 Del Method Room Air 02/18/24 07:38 BMI result Body Mass Index 23.2 GENERAL APPEARANCE: in no acute distress, pleasant. NECK: no carotid bruit, my jugular venous distention. SKIN: no suspicious lesions, warm and dry. HEART: no murmurs, irregular rate and rhythm. LUNGS: Clear to auscultation. ABDOMEN: soft, nontender. EXTREMITIES: no edema. PERIPHERAL PULSES: equal. NEUROLOGIC: No gross deficits, AAO X 3 Objective Labs and Meds 02/17/24 07:02 02/18/24 05:42 Lab results: Laboratory Results - last 24 hr 02/18/24 05:42 Hold Purple Top SEE NOTE Sodium 136 Potassium 3.8 Chloride 100 Carbon Dioxide 24 Anion Gap 16 BUN 24 H Creatinine 0.80 Estim Creat Clear Calc 44.1 Estimated GFR > 60 Random Glucose 104 Calcium 8.9 Imaging Radiologist's impression: Impressions Abdomen Ultrasound 02/17/24 08:41 IMPRESSION: 1. Cholelithiasis. Small amount of pericholecystic fluid. Borderline gallbladder wall thickening of 3 mm. 2. Incidental note on limited views of a moderate right pleural effusion, incompletely imaged. Correlation with chest radiographs recommended. This study was presented today February 17, 2024 for interpretation. Prompt results provided at this time as requested by referring provider. Progress Note: A&P Assessment and plan (1) Pulmonary edema: Status: Acute (2) Atrial fibrillation: Status: Acute Plan Pleasant 88 year female presenting with new diagnosis of congestive heart failure and atrial fibrillation. Currently being rate controlled with metoprolol. On anticoagulation with apixaban. Diuresing with IV diuretics but I think she is reaching euvolemia and can be changed to oral diuretics 40 mg Lasix p.o. daily from tomorrow morning. Monitor electrolytes closely. We will check echocardiogram to assess LV function. If there is any evidence of LV dysfunction then we will discuss JACKELYN cardioversion. Thank you for allowing me to participate in the care of your patient. Please feel free to contact me if you have any questions. Time Spent With Patient Time: Total time managing care of this patient today ____ minutes. Progress Note: Quality Stroke Does the patient have a stroke diagnosis?: No Procedures Date of Service Date of Service: 02/18/24
[2024-02-18] MEDS: 0.9 % Sodium Chloride 1,000 ML 500 ML IVCONT (12:56)
[2024-02-18] MEDS: 0.9 % Sodium Chloride 1,000 ML 150 ML IVCONT (14:00)
--- NOTE | 2024-02-18 16:47 | PM.EVENT ---
Event Note Date of Service: 02/18/24 Event Note: pt became hypotensive, feeling weak but intact mental status, BP.. Has no fever or sings of infectin.. Likefly from diuretics and BP meds. Holding Lasix and Metoprolol and given IVF and if there is any sings of infection of sepsis, will get blood cultures and lactic acid. She felt better once BP improved. Continue IVF and closely monitor BPs Time Spent With Patient Time: Total time managing care of this patient today ____ minutes.
[2024-02-18] MEDS: Amiodarone HCL 200 MG TABLET 400 MG PO (21:54)
[2024-02-18] MEDS: Losartan Potassium 25 MG TABLET PO (21:55)
[2024-02-19] VITALS: BP 94/65; PULSE 94; RESP 16; TEMP 36.9; O2SAT 92
[2024-02-19] MEDS: 0.9 % Sodium Chloride 1,000 ML 100 ML IVCONT (03:32)
[2024-02-19 03:35] VITALS: BP 110/69; PULSE 104; RESP 16; TEMP 36.8; O2SAT 96
[2024-02-19 06:00] VITALS: BMI 28.2
[2024-02-19 07:02] VITALS: BP 104/66; PULSE 77; RESP 18; TEMP 36.4; O2SAT 93
[2024-02-19] MEDS: Losartan Potassium 25 MG TABLET PO (08:30)
[2024-02-19] MEDS: 0.9 % Sodium Chloride Flush 3 ML SYRINGE IVFLUSH (08:30)
[2024-02-19] MEDS: Zinc Sulfate 220 MG CAPSULE PO (08:30)
[2024-02-19] MEDS: Atorvastatin Calcium 20 MG TABLET PO (08:30)
[2024-02-19] MEDS: Ascorbic Acid 500 MG TABLET 1000 MG PO (08:31)
[2024-02-19] MEDS: Apixaban 5 MG TABLET PO (08:31)
[2024-02-19] MEDS: Magnesium Oxide 400 MG TABLET PO (08:31)
[2024-02-19] MEDS: Cholecalciferol (Vitamin D3) 25 MCG TABLET 50 MCG PO (08:31)
[2024-02-19] MEDS: Metoprolol Succinate ER 25 MG TAB.ER.24H PO (08:31)
[2024-02-19] MEDS: Amiodarone HCL 200 MG TABLET 400 MG PO (08:31)
[2024-02-19] MEDS: Cyanocobalamin (Vitamin B-12) 1,000 MCG TABLET 2000 MCG PO (08:32)
--- NOTE | 2024-02-19 09:46 | PM.DS ---
DS: Providers Provider Date of Service: 02/19/24 Date of admission: 02/17/24 00:26 Primary care physician: William Cherry MD Consults: 02/17/24 00:29 Consult to Cardiology Routine Consulting Provider: [facility] Reason for consultation: Pulmonary edema, rapid AFib -new onset Has provider been notified: Yes DS: Diagnosis Discharge Diagnosis (1) Pulmonary edema: Status: Resolved (2) Atrial fibrillation: Status: Acute DS: Summary Hospital Course Hospital Course: admission hpi Chief Complaint: Shortness on breath Sharla Rodriguez is a very pleasant 88 years old woman with past medical history remarkable for hyperlipidemia presents to the emergency department complaining of worsening shortness of breath mostly on exertion. She mentioned that over the last 2 months she has been having episodes of shortness on breath while walking and palpitations. Noted mild swelling to the lower extremities. She denies any chest pain, cough, headache, dizziness, fevers chills. Denied any acute gastrointestinal or genitourinary symptoms. No history of hypertension, cardiac arrhythmia, stroke or congestive heart failure. No history of tobacco smoking, alcohol abuse or illicit drug use. In the ED, she was found to have tachycardia consistent with rapid atrial fibrillation. O2 sat normal on RA. Blood pressure is stable. Blood workup showed no leukocytosis. Hemoglobin is normal. BNP is markedly elevated 1788 and troponin trend 84.5 No significant electrolyte imbalances noted. Creatinine is 8.0. AST, ALT and total bilirubin are elevated. Alk-phos is normal. CXR showed increased prominence of the central vasculature and interstitial suspicious for interstitial edema and subtle patchy right basilar opacity. ECG showed atrial fibrillation with rapid ventricular response with HR [address] and T-wave abnormality. ED tx: Diltiazem 20 mg IV (total), Eliquis 5 mg PO, furosemide 40 mg IV Hospital course: Atrial fibrillation with rapid ventricular response,; she presented with new onset of AFIB with RVRrate in 120, initially treated with IV cardizem and then started on metoprolol that has been adjusted to current Toprolol XL 25 mg daily and Eliquis 5 mg bid for stroke prevention. She was seen by cardiology, an echo showed EF 10-15%. There is severe global hypokinesis. Acute HFrEF, treated with IV Lasix and clinically improved, will transition to oral Lasix 20 mg daily, toprol as above and Hypotension--likely from overdiuressed and required rehydration with IVF, BP is now better Elevated troponin. likely from AFIB, trop Flat Elevated transaminases and bilirubin. ? Hepatic congestion. Check abdominal ultrasound. Continue to monitor LFTs. Hyperlipidemia. Continue statin. Time Attestation Discharge Coordination Time (in mins): 40 minutes Quality: Safe Use of Opioids Does Pt have an Active Cancer Diagnosis on the Problem List?: No Quality: Stroke Does the patient have a stroke diagnosis?: No Physical Exam Vital Signs: Vital Signs: Last Vital Signs Temp 97.6 F 02/19/24 07:02 Pulse 77 02/19/24 07:02 Resp 18 02/19/24 07:02 BP 104/66 02/19/24 07:02 Pulse Ox 93 02/19/24 07:02 O2 Del Method Room Air 02/19/24 07:02 BMI result Body Mass Index 28.2 General: AO X 3, no acute distress Resp: CTA bilateral CVS: S1,S2, iregular iregular GI: +BS, NT, no distention Skin: No rash Neuro: motor grossly intact Psych: appropriate affect Discharge Plan Discharge Anticipated Discharge Date/Time: 02/19/24 09:55 Patient Disposition: Home Health Service Discharge Diagnosis: New AFIB, Cardiomyopathy, CHF Referrals: [facility] [Outside] - 1 Week William Cherry MD [Primary Care Provider] - 1 Week Discharge Medications: Continued ascorbic acid (vitamin C) 1,000 mg Tablet 1,000 mg PO DAILY zinc sulfate 50 mg zinc (220 mg) Tablet 50 mg PO DAILY calcium carbonate 500 mg calcium (1,250 mg) Tablet 1,000 mg PO DAILY cholecalciferol (vitamin D3) 50 mcg (2,000 unit) Tablet 50 mcg PO DAILY omega 1-ebm-gdc-fish oil [Fish Oil] 1,000 mg (120 mg-180 mg) Capsule 1 cap PO BID cyanocobalamin (vitamin B-12) 2,000 mcg Tablet 2,000 mcg PO DAILY magnesium oxide 400 mg magnesium Tablet 400 mg PO DAILY PRN (Reason: Cramps) Rx Instructions: as needed for leg cramps acetaminophen 500 mg Tablet 500 mg PO DAILY PRN (Reason: Pain) atorvastatin 20 mg tablet 20 mg PO DAILY No Action amiodarone 200 mg tablet 200 mg PO DAILY Qty: 30 2RF Eliquis 5 mg tablet 5 mg PO BID Qty: 60 2RF furosemide 40 mg tablet 40 mg PO DAILY Qty: 30 2RF Rx Instructions: Take as directed. Continue to monitor daily weight. metoprolol succinate 25 mg tablet extended release 24 hr 25 mg PO DAILY Qty: 30 2RF Protocol: Hold for SBP/HR < HOLD for SBP < : 90 HOLD for HR < : 60 Discharge Orders: Discharge Order (Routine); Ordered 02/19/24 Ordered By: Linus Camp Diet: Advance to usual diet Activity on Discharge: As tolerated Stand Alone Forms: Patient Portal Discharge page Print Language: Arabic Care Plan Goals: Return to baseline funtional status, and control of AFIB with RVR, and heart failure Health Concerns: Atrial fibrilation, heart failure cardiomyopathy Plan of Treatment: Take Lasix, losartant, Aldactone and metoprolol for heart failure take Amiodarone to regulate your heart rate : take 2 tabs by mouth daily for 13 more days, then after that take 1 tab daily take Eliquis to thin your blood and prevent stroke Assessment: see above Discharge Date/Time: 02/19/24 16:28
[2024-02-19] MEDS: Furosemide 20 MG TABLET PO (09:55)
[2024-02-19 11:13] VITALS: BP 102/63; PULSE 98; RESP 18; TEMP 36; O2SAT 95
--- NOTE | 2024-02-19 14:33 | PM.PNCARD ---
Subjective Subjective Date of Service: 02/19/24 Interval history: Seen examined at bedside. ECHO has shown severe LV dysfunction. She is in atrial fibrillation. She was started on losartan 25 mg daily yesterday Physical Exam Vital Signs: Last Vital Signs Temp 96.8 F 02/19/24 11:13 Pulse 98 02/19/24 11:13 Resp 18 02/19/24 11:13 BP 102/63 02/19/24 11:13 Pulse Ox 95 02/19/24 11:13 O2 Del Method Room Air 02/19/24 11:13 BMI result Body Mass Index 28.2 GENERAL APPEARANCE: in no acute distress, pleasant. NECK: no carotid bruit, no significant jugular venous distention. SKIN: no suspicious lesions, warm and dry. HEART: no murmurs, irregular rate and rhythm. LUNGS: Clear to auscultation. ABDOMEN: soft, nontender. EXTREMITIES: no edema. PERIPHERAL PULSES: equal. NEUROLOGIC: No gross deficits, AAO X 3 Objective Labs and Meds 02/17/24 07:02 02/18/24 05:42 Progress Note: A&P Assessment and plan (1) Atrial fibrillation: Status: Acute (2) Pulmonary edema: Status: Acute (3) Cardiomyopathy: Status: Acute Plan Very pleasant 88 year female presenting for new onset congestive heart failure. She has been diuresed and clinically has improved significantly. She was in AFib with RVR which is a potential cause for heart failure and ECHO has shown severe LV dysfunction. She has been started on losartan 25 mg and was started on amiodarone 400 mg twice a day. She has significant enlargement of the left atrium. I have discussed with her that AFib is a potential cause for cardiomyopathy and we should consider cardioversion. I gave her the option of JACKELYN cardioversion while she is in hospital versus going home and doing it in the next 4-5 weeks. She will decide about it after discussion with her son. If going home then we will discharge her on amiodarone 400 mg daily for the next 2 weeks and then 200 mg daily, Lasix 20 mg daily, losartan 25 mg daily and Toprol-XL 25 mg daily. Thank you for allowing me to participate in the care of your patient. Please feel free to contact me if you have any questions. Time Spent With Patient Time: Total time managing care of this patient today ____ minutes. Progress Note: Quality Stroke Does the patient have a stroke diagnosis?: No Procedures Date of Service Date of Service: 02/19/24
[2024-02-19 15:28] VITALS: BP 102/67; PULSE 98; RESP 18; TEMP 36.4; O2SAT 96
--- NOTE | 2024-02-19 15:39 | W.MHC.F2F ---
Service Date Service Date: 02/19/24 Encounter Date of encounter: 02/19/24 Reasons for Services Signs and symptoms assessed: Heart failure with shortness of breath Reason for residential: medication management and teach disease management Homebound: Leaving the home is medically contraindicated at this time without the asist of a device and/or another person due th the listed conditions above and below. Reason homebound: shortness of breath with minimal effort and shortness of breath at rest Homebound supporting statement: homebound due to severe heart failure with very low EF-, shortness of breath with minimal activity and therefore needs the assitance of another person Certification: Based on the above findings, I certify that this patient is confined to the home and needs intermittent residential care, physical therapy and/or speech therapy, or continues to need occupational therapy. The patient is under my care, and I have initiated the establishment of the plan of care. The patient will be followed by a physician who will periodically review the plan of care. Time Spent With Patient Time: Total time managing care of this patient today ____ minutes.
--- NOTE | 2024-02-19 15:40 | MHC.CM.PN ---
Patient has been medically cleared for dc to home today with services. A referral was made to [facility], who has been made aware of today's dc. Last IMM addressed on 02/17/2024.
== END 2024-02-19 16:28 | disposition home health service (06) | DRG 308 ==
LOC: HO.ED 20:57 → HO.EDOVER 02-17 00:31 → HO.IMC 02-17 23:55
PROVIDERS: Admitting Provider Internal Medicine; Emergency Provider Emergency Medicine; PCP Family Medicine; Visit Provider Internal Medicine
DX: I48.91 Unspecified atrial fibrillation (principal); I50.21 Acute systolic (congestive) heart failure; E78.5 Hyperlipidemia, unspecified; I95.2 Hypotension due to drugs; T50.1X5A Adverse effect of loop [high-ceiling] diuretics, initial encounter; T44.7X5A Adverse effect of beta-adrenoreceptor antagonists, initial encounter; Z79.899 Other long term (current) drug therapy
CPT/HCPCS: 36415; 71045; 76705; 80048; 80053; 83880; 84484; 85025; 93005; 93306; 97162; 99285; J1940; J2405; Q9957

== ENCOUNTER → 2024-02-16 20:49 | Outpatient (BNV) | payer MEDICARE, SELFPAY | PROVIDERS: Admitting Provider Internal Medicine; Emergency Provider Emergency Medicine; PCP Family Medicine; Visit Provider Internal Medicine Cardiovascular Disease | DX: R06.02 Shortness of breath (principal) | CPT/HCPCS: 93010 ==

== ENCOUNTER 2024-02-17 00:26 | Outpatient (BNV) | payer MEDICARE, SELFPAY | END 2024-02-18 07:00 | PROVIDERS: Admitting Provider Internal Medicine; Emergency Provider Emergency Medicine; PCP Family Medicine; Visit Provider Internal Medicine Cardiovascular Disease | DX: I34.0 Nonrheumatic mitral (valve) insufficiency (principal); I36.1 Nonrheumatic tricuspid (valve) insufficiency | CPT/HCPCS: 93306 ==

== ENCOUNTER → 2024-02-17 00:26 | Outpatient (BNV) | payer MEDICARE, SELFPAY | PROVIDERS: Admitting Provider Internal Medicine; Emergency Provider Emergency Medicine; PCP Family Medicine; Visit Provider Internal Medicine Cardiovascular Disease | DX: J81.0 Acute pulmonary edema (principal); I48.91 Unspecified atrial fibrillation | CPT/HCPCS: 99223; 99233 ==

== ENCOUNTER → 2024-02-17 00:26 | Outpatient (BNV) | payer MEDICARE, SELFPAY | PROVIDERS: Admitting Provider Internal Medicine; Emergency Provider Emergency Medicine; Visit Provider Internal Medicine | DX: J81.1 Chronic pulmonary edema (principal); I48.91 Unspecified atrial fibrillation | CPT/HCPCS: 99223; 99232; 99239; 99499; G0180 ==

== ENCOUNTER → 2024-03-16 12:35 | Outpatient (BNVA) | payer MEDICARE, SELFPAY | PROVIDERS: PCP Family Medicine; Visit Provider Nurse Practitioner Family | DX: Z09 Encounter for follow-up examination after completed treatment for conditions other than malignant neoplasm (principal); I48.91 Unspecified atrial fibrillation; I42.9 Cardiomyopathy, unspecified; I50.9 Heart failure, unspecified | CPT/HCPCS: 93005; 99212 ==

== ENCOUNTER 2024-03-16 12:36 | Outpatient (AMB) | payer MEDICARE, SELFPAY ==
[2024-03-16 13:11] VITALS: BP 100/62; BMI 26.0
--- NOTE | 2024-03-16 13:11 | A.OFFVIS_ITS ---
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 [employer] Required: No Allergies simvastatin Allergy (Mild, Verified 03/16/24 13:17) Rash Medication List - Last Reconciled 03/16/24 by MARLEEN McdowellC acetaminophen 500 mg PO DAILY PRN amiodarone Take 2 tabs by mouth daily for 13 more days, then take 1 tablet daily there after apixaban (Eliquis) 5 mg PO BID ascorbic acid (vitamin C) 1,000 mg PO DAILY atorvastatin 20 mg PO DAILY calcium carbonate 1,000 mg PO DAILY cholecalciferol (vitamin D3) 50 mcg PO DAILY cyanocobalamin (vitamin B-12) 2,000 mcg PO DAILY furosemide 40 mg PO DAILY magnesium oxide 400 mg PO DAILY PRN metoprolol succinate ER 25 mg See Protocol PO DAILY omega 6-yfz-tgy-fish oil 1,000 mg (120 mg-180 mg) (Fish Oil) 1 cap PO BID zinc sulfate 50 mg PO DAILY HPI HPI f/up per KM: Details: Sharla is an 88-year-old female with past medical history of hyperlipidemia who recently presented to [facility] with increased shortness of breath and was treated for new finding of atrial fibrillation, Congestive heart failure and cardiomyopathy. She was initially treated with heart rate control then put on amiodarone for rhythm control. She was diuresed then started on Lasix 20 mg daily. She was put on losartan and metoprolol for neurohormonal modulation. Her losartan has since been stopped due to low blood pressure readings. Today she reports she has been feeling short of breath with physical activity. She denies PND, orthopnea. She does have edema in her lower extremities, left greater than right. She wears compression stockings. She has not noticing heart palpitations. No chest discomfort at rest or with activity. No presyncope, syncope, falls. No bleeding issues reported. Son is present. He ensures that she has been taking all medications as directed. She ambulates with a walker but states she has been active at home. [facility] Medical History (Updated 03/16/24 @ 16:06 by MARLEEN McdowellC) Hypercholesterolemia CHF (congestive heart failure) Atrial fibrillation Brain TIA Social History Household Members: None Housing: Other Housing Other:: [facility] Do you presently have visiting nurse or other home services: No Patient Tobacco Use Status: Never used Tobacco service: No Review of Systems Const All systems reviewed & are unremarkable except as noted in HPI and below ENT Denies dizziness Card Denies chest pain, Denies chest pain at rest, Denies chest pain with activity, Denies rapid heart rate, Denies pedal edema, Denies edema, Reports leg edema, Denies lightheadedness, Denies palpitations, Denies dyspnea, Reports dyspnea on exertion and Denies orthopnea Resp Denies cough, Denies dyspnea and Reports dyspnea on exertion GI Denies hematochezia and Denies change in stool character Musc Denies abnormal gait, Denies limited range of motion, Denies muscle cramps, Denies muscle weakness, Denies numbness, Denies radiating pain into limb, Denies stiffness and Denies tingling Neuro Denies abnormal gait, Denies dizziness, Denies numbness and Denies tingling Endo Denies palpitations Physical Exam Vital Signs: Last Vital Signs BP 100/62 03/16/24 13:11 BMI result Body Mass Index 26.0 Const Other: Ambulates with a walker General: cooperative, healthy appearing, comfortable and no acute distress Orientation/consciousness: patient oriented x3 Neck Neck: Yes normal visual inspection and Yes no JVD Resp Effort & Inspection: normal respiratory effort Auscultation: clear to auscultation bilaterally, no crackles, no rales, no rhonchi and no wheezes Cardio Jugular venous distension: no JVD Rate: regular rate Rhythm: abnormal rhythm Heart sounds: S1 normal heart sound present, S2 normal heart sound present, no murmurs and no rubs Neuro General: patient oriented x3 Extrem Other: Compression stockings on, swelling in left lower extremity greater than right Psych Appearance: grossly normal Mental Status: mental status grossly normal Speech and movement: Normal speech and movement present Office Procedures EKG Details: Today, read by me, atrial fibrillation, left anterior fascicular block, rate 87, QTC 478 milliseconds [id number], Complete Assessment & Plan Assessment & Plan (1) Atrial fibrillation: Code(s): I48.91 - Unspecified atrial fibrillation Category: Medical Plan: Patient presented to [facility] ED with report of shortness of breath. EKG confirmed new finding of atrial fibrillation with RVR. She was initially treated with heart rate control. Echocardiogram showed EF 10-15%, moderate to severe decrease in the RV systolic function, left atrium severely dilated, moderate to severe mitral regurgitation. She was then started on amiodarone to help with rhythm control. Eliquis was started for anticoagulation. Today she reports that she does have shortness of breath with activity. She has some mild lower leg edema and continues on Lasix 20 mg daily. EKG done today showing atrial fibrillation, rate 87. Discussed cardioversion with her based on information from last cardiology hospital note. Risks of the procedure reviewed and she is agreeable to proceed. It would be beneficial to restore normal sinus rhythm. At this time will have her continue on amiodarone, metoprolol. Continue Eliquis without interruption. Spent time reviewing the diagnosis of atrial fibrillation, stroke risk with atrial fibrillation and need for med management. Cardiology follow-up 2 weeks post cardioversion. Emergency care if needed for any concerning symptoms. (2) Cardiomyopathy: Code(s): I42.9 - Cardiomyopathy, unspecified Category: Medical Plan: New finding of cardiomyopathy with EF 10-15%. Most likely tachycardia induced however ischemia has not been ruled out as of yet. She does have shortness of breath with activity which is likely from her atrial fibrillation. No reports of chest discomfort. Arranging for cardioversion as above. Then can plan for limited echo to reassess EF. If EF remains down weeks following cardioversion then will need ischemic evaluation. She initially was put on losartan and metoprolol XL for neurohormonal modulation. Her blood pressure runs low. The losartan has been stopped prior to this visit. She continues on Lasix 20 mg daily. (3) CHF (congestive heart failure): Code(s): I50.9 - Heart failure, unspecified Category: Medical Plan: As above. Lungs are clear on examination today. She does have some pitting edema in her lower extremities. Will have her continue on daily Lasix. (4) Hospital discharge follow-up: Code(s): Z09 - Encounter for follow-up examination after completed treatment for conditions other than malignant neoplasm Category: Medical Plan: As above Plan Time spent on chart review, documentation, interview and assessment Orders: Orders Cardioversion Today I42.9 - Cardiomyopathy, unspecified, I48.91 - Unspecified atrial fibrillation
== END 2024-03-16 13:48 | disposition home or self-care (01) ==
PROVIDERS: PCP Family Medicine; Visit Provider Nurse Practitioner Family
DX: I48.91 Unspecified atrial fibrillation (principal); I42.9 Cardiomyopathy, unspecified; I50.9 Heart failure, unspecified; Z09 Encounter for follow-up examination after completed treatment for conditions other than malignant neoplasm
CPT/HCPCS: 93010; 99214

== ENCOUNTER 2024-04-03 11:47 | Day surgery (SDC) | payer MEDICARE, SELFPAY ==
[2024-04-03] VITALS (7 sets, daily range): BP systolic 101–131; BP diastolic 44–92; PULSE 52–96; RESP 15–20; TEMP 36.1–36.2; O2SAT 95–98; BMI 26.0
--- NOTE | 2024-04-03 | ECG_ITS ---
Test Reason : S/P CARDIOVERSION Blood Pressure : / mmHG Vent. Rate : 053 BPM Atrial Rate : 053 BPM P-R Int : 202 ms QRS Dur : 108 ms QT Int : 504 ms P-R-T Axes : 060 -41 016 degrees QTc Int : 472 ms Sinus bradycardia with occasional Premature ventricular complexes Left axis deviation Minimal voltage criteria for LVH, may be normal variant ( [place] product ) Abnormal ECG When compared with ECG of 16-FEB-2024 20:49, Sinus rhythm has replaced Atrial fibrillation Vent. rate has decreased BY 72 BPM Referred By: Momo Garcia Electronically Signed By:Momo Garcia
[2024-04-03] MEDS: Lactated Ringers 1,000 ML 50 ML IVCONT (12:48)
--- NOTE | 2024-04-03 13:00 | P.CONAN_ITS ---
Documented by User: Stella Gómez NP 04/01/24 12:00 HPI - Anesthesia Eval Consult details Narrative: 88yo F for Cardioversion Eliquis for afib PMFSH Active Problems Active Problems: All Active Problems CHF (congestive heart failure) (Acute) Hospital discharge follow-up (Acute) Cardiomyopathy (Acute) Elevated bilirubin (Acute) Atrial fibrillation (Acute) Past Medical History Medical History (Updated 03/16/24 @ 16:06 by MARLEEN McdowellC) Hypercholesterolemia CHF (congestive heart failure) Atrial fibrillation Brain TIA Social History Social History Household Members: None Housing: Other Housing Other:: [facility] Do you presently have visiting nurse or other home services: No Patient Tobacco Use Status: Never used Tobacco Second Hand Smoke Exposure: No Use of substances other than those prescribed or required for medical reasons: No Are you DNR?: No Advance Directives: No Advance Directives Information Provided: Yes Advance Directives on File: No service: No Meds Allergies Allergy/AdvReac Type Severity Reaction Status Date / Time simvastatin Allergy Mild Rash Verified 03/16/24 13:17 Home Medications ?Medication ?Instructions ?Recorded ?Confirmed ?Last Taken ?Type atorvastatin 20 mg tablet 20 mg PO DAILY 08/31/22 04/03/24 02/16/24 History ascorbic acid (vitamin C) 1,000 mg 1,000 mg PO DAILY 11/22/22 04/03/24 02/16/24 History tablet calcium carbonate 1,000 mg PO DAILY 11/22/22 04/03/24 02/16/24 History cholecalciferol (vitamin D3) 50 50 mcg PO DAILY 11/22/22 04/03/24 02/16/24 History mcg (2,000 unit) tablet cyanocobalamin (vitamin B-12) 2,000 mcg PO DAILY 11/22/22 04/03/24 02/16/24 Hist ory 2,000 mcg tablet magnesium oxide 400 mg PO DAILY PRN Cramps 11/22/22 04/03/24 Unknown History omega 3-aqv-jcv-fish oil 1,000 mg 1 cap PO BID 11/22/22 04/03/24 02/16/24 History (120 mg-180 mg) capsule (Fish Oil) zinc sulfate 50 mg zinc (220 mg) 50 mg PO DAILY 11/22/22 04/03/24 02/16/24 History tablet acetaminophen 500 mg tablet 500 mg PO DAILY PRN Pain 02/17/24 04/03/24 Unknown History Exam Narrative Narrative: ECHO 2023 Conclusions: - Normal left ventricular cavity size. There is mildly increased left ventricular wall thickness. The left ventricular systolic function is severely decreased. The visually estimated ejection fraction is between 10-15%. There is severe global hypokinesis. Diastolic function is indeterminate on the basis of available data. - Normal right ventricular cavity size. There is moderate to severely decreased right ventricular systolic function. - The left atrium is severely dilated. - There is moderate to severe mitral valve regurgitation. Assessment and Plan Assessment Anesthesia Assessment: Chart Reviewed Documented by User: Barb Shelton DO 04/03/24 13:42 HPI - Anesthesia Eval Consult details Narrative: 88yo F for Cardioversion. EF 10-15%. Eliquis for afib PMFSH Past Medical History Medical History (Updated 03/16/24 @ 16:06 by Clover Gibson NP-C) Hypercholesterolemia CHF (congestive heart failure) Atrial fibrillation Brain TIA Family History Family history of problems with anesthesia: No Surgical History History of Problems with Anesthesia: No Social History Social History Household Members: None Housing: Other Housing Other:: [facility] Do you presently have visiting nurse or other home services: No Patient Tobacco Use Status: Never used Tobacco Second Hand Smoke Exposure: No Use of substances other than those prescribed or required for medical reasons: No Are you DNR?: No Advance Directives: No Advance Directives Information Provided: Yes Advance Directives on File: No service: No Meds Allergies Allergy/AdvReac Type Severity Reaction Status Date / Time simvastatin Allergy Mild Rash Verified 03/16/24 13:17 Home Medications ?Medication ?Instructions ?Recorded ?Confirmed ?Last Taken ?Type atorvastatin 20 mg tablet 20 mg PO DAILY 08/31/22 04/03/24 02/16/24 History ascorbic acid (vitamin C) 1,000 mg 1,000 mg PO DAILY 11/22/22 04/03/24 02/16/24 History tablet calcium carbonate 1,000 mg PO DAILY 11/22/22 04/03/24 02/16/24 History cholecalciferol (vitamin D3) 50 50 mcg PO DAILY 11/22/22 04/03/24 02/16/24 History mcg (2,000 unit) tablet cyanocobalamin (vitamin B-12) 2,000 mcg PO DAILY 11/22/22 04/03/24 02/16/24 History 2,000 mcg tablet magnesium oxide 400 mg PO DAILY PRN Cramps 11/22/22 04/03/24 Unknown History omega 1-tzd-zxl-fish oil 1,000 mg 1 cap PO BID 11/22/22 04/03/24 02/16/24 History (120 mg-180 mg) capsule (Fish Oil) zinc sulfate 50 mg zinc (220 mg) 50 mg PO DAILY 11/22/22 04/03/24 02/16/24 History tablet acetaminophen 500 mg tablet 500 mg PO DAILY PRN Pain 02/17/24 04/03/24 Unknown History Exam Exam Date and Time: April 03, 2024 1300 Height,Weight and Vital Signs: Height 5 ft 2 in Weight 64.495 kg Vital Signs Temperature 97.2 F 04/03/24 12:41 Pulse Rate 96 04/03/24 12:41 Respiratory Rate 16 04/03/24 12:41 Blood Pressure 131/92 H 04/03/24 12:41 Pulse Oximetry 95 04/03/24 12:41 Oxygen Delivery Method Room Air 04/03/24 12:41 Temperature 97.2 F 04/03/24 12:41 Pulse Rate 96 04/03/24 12:41 Respiratory Rate 16 04/03/24 12:41 Blood Pressure 131/92 H 04/03/24 12:41 Pulse Oximetry 95 04/03/24 12:41 Oxygen Delivery Method Room Air 04/03/24 12:41 Airway Mallampati Class: I TM Dist: >3cm Neck ROM: Full Partial: Lower Heart: S1S2 Lungs: CTAB Assessment and Plan Assessment Anesthesia Assessment: Anesthesia Plan Discussed and Chart Reviewed Final Anesthetic Review Family History of Problems with Anesthesia: No History of Problems with Anesthesia: No NPO: Yes ASA Class: IV Final Preanesthetic Review: No Changes in Pt Med Stat, Meds/Allgs Chart Reviewed, Consent Obtained/Reviewed and Anes Risks/Benef Reviewed Patient Risk: High Procedure Risk: Intermediate Anesthetic Plan Anesthetic Plan: MAC: and Agree w/ Assess. and Plan Disposition: Standard PACU
--- NOTE | 2024-04-03 13:08 | MHC.SHP ---
Pre-Procedural Eval Section A - 24 Hr Update-Section A only Date of Service: 04/03/24 The patient is an INPATIENT: No The patient has been examined within 24 hours of the surgical procedure. The History & Physical has been completed within 30 days and I have reviewed it.: Yes Section B - Complete if H&P > 30 days Chief Complaint: Unspecified atrial fibrillation Details of Present Illness: Here for cardioversion Allergies: Allergies Allergy/AdvReac Type Severity Reaction Status Date / Time simvastatin Allergy Mild Rash Verified 03/16/24 13:17 Plan Diagnosis/Plan: Unchanged I have reviewed the history and physical and performed a pertinent physical examination on my patient. No changes have occurred unless specified. Time Spent With Patient Time: Total time managing care of this patient today ____ minutes.
--- NOTE | 2024-04-03 14:01 | HO.CARDIVERS ---
Cardioversion Procedure Note Cardioversion Date of Procedure: 36 Ordering Provider: Clover Gibson Performing Provider: Momo Garcia Indication for Procedure: Afib/cardiomyopathy Performed with Transesophageal Echo: No Consent: Verbal and Written consent was obtained from the patient before starting. The patient was made aware of the risk of failure, skin irritation, stroke and arrhythmia. Procedure: After consent obtained, defib pads were attached and the patient was sedated by the anesthesia team. Once adequate sedation achieved, single synchronized shock of 200 J was delivered. The patient converted to sinus rhythm. Complications: None Recommendations: continue amiodarone and apixaban.
== END 2024-04-03 15:18 | disposition home or self-care (01) ==
PROVIDERS: PCP Family Medicine; Visit Provider Internal Medicine Cardiovascular Disease
PROC: 5A2204Z Restoration of Cardiac Rhythm, Single (ICD-10-PCS; principal; 2024-04-03 13:30)
DX: I48.91 Unspecified atrial fibrillation (principal); I42.9 Cardiomyopathy, unspecified; I50.9 Heart failure, unspecified; Z79.01 Long term (current) use of anticoagulants
CPT/HCPCS: 92960; 93005; J2704

== ENCOUNTER → 2024-04-03 11:47 | Outpatient (BNV) | payer MEDICARE, SELFPAY | PROVIDERS: PCP Family Medicine; Visit Provider Internal Medicine Cardiovascular Disease | DX: I48.91 Unspecified atrial fibrillation (principal) | CPT/HCPCS: 92960; 93010 ==

== ENCOUNTER 2024-05-19 15:23 | Outpatient (AMB) | payer MEDICARE, SELFPAY ==
--- NOTE | 2024-05-19 15:36 | MHC.OFFVIS ---
Vital Signs 05/19/24 15:37 Height 5 ft 2 in Weight 141 lb 1.533 oz BMI 25.8 BP 114/52 L Blood Pressure Location Rt brachial Position Sitting Pulse 52 Pulse Source Monitor Intake Visit Reasons: f/u after cardioversion Marketing Research Analyst Required: No Allergies simvastatin Allergy (Mild, Verified 05/19/24 15:40) Rash Medication List - Last Reconciled 05/19/24 by Clover Gibson NP-C acetaminophen 500 mg PO DAILY PRN amiodarone 200 mg PO DAILY apixaban (Eliquis) 5 mg PO BID ascorbic acid (vitamin C) 1,000 mg PO DAILY calcium carbonate 1,000 mg PO DAILY cholecalciferol (vitamin D3) 50 mcg PO DAILY cyanocobalamin (vitamin B-12) 2,000 mcg PO DAILY furosemide 40 mg PO DAILY metoprolol succinate ER 25 mg See Protocol PO DAILY omega 4-sgb-nay-fish oil 1,000 mg (120 mg-180 mg) (Fish Oil) 1 cap PO BID zinc sulfate 50 mg PO DAILY HPI HPI f/u after cardioversion: Details: Sharla is an 88-year-old female with past medical history of hyperlipidemia who recently presented to [facility] with increased shortness of breath and was treated for new finding of atrial fibrillation, Congestive heart failure and cardiomyopathy. She was initially treated with heart rate control then put on amiodarone for rhythm control. She was diuresed then started on Lasix 20 mg daily. She was put on losartan and metoprolol for neurohormonal modulation. Her losartan has since been stopped due to low blood pressure readings. She did undergo a cardioversion on 04/03/2024 and now presents for follow-up. Today she reports she has been feeling well overall. She no longer reports the shortness of breath with physical activity. She denies PND, orthopnea. Her prior leg edema has fully resolved. She wears compression stockings. She has not noticing heart palpitations. No chest discomfort at rest or with activity. No presyncope, syncope, falls. No bleeding issues reported. She has been taking all medications as directed. She ambulates with a walker but states she has been active at her assisted living facility. [facility] Medical History Hypercholesterolemia CHF (congestive heart failure) Atrial fibrillation Brain TIA Social History Household Members: None Housing: Other Housing Other:: [facility] Do you presently have visiting nurse or other home services: No Patient Tobacco Use Status: Never used Tobacco Second Hand Smoke Exposure: No service: No Review of Systems Const All systems reviewed & are unremarkable except as noted in HPI and below ENT Denies dizziness Card Denies chest pain, Denies chest pain at rest, Denies chest pain with activity, Denies rapid heart rate, Denies pedal edema, Denies edema, Denies leg edema, Denies lightheadedness, Denies palpitations, Denies dyspnea, Denies dyspnea on exertion and Denies orthopnea Resp Denies cough, Denies dyspnea and Denies dyspnea on exertion GI Denies hematochezia and Denies change in stool character Musc Denies abnormal gait, Denies limited range of motion, Denies muscle cramps, Denies muscle weakness, Denies numbness, Denies radiating pain into limb, Denies stiffness and Denies tingling Neuro Denies abnormal gait, Denies dizziness, Denies numbness and Denies tingling Endo Denies palpitations Physical Exam Vital Signs: Last Vital Signs Pulse 52 05/19/24 15:37 BP 114/52 L 05/19/24 15:37 BMI result Body Mass Index 25.8 Const Other: Ambulates with a walker General: cooperative, healthy appearing, comfortable and no acute distress Orientation/consciousness: patient oriented x3 Neck Neck: Yes normal visual inspection and Yes no JVD Resp Effort & Inspection: normal respiratory effort Auscultation: clear to auscultation bilaterally, no crackles, no rales, no rhonchi and no wheezes Cardio Jugular venous distension: no JVD Rate: bradycardic Rhythm: regular rhythm Heart sounds: S1 normal heart sound present, S2 normal heart sound present, no murmurs and no rubs Neuro General: patient oriented x3 Extrem Other: Compression stockings on, swelling in left lower extremity greater than right Psych Appearance: grossly normal Mental Status: mental status grossly normal Speech and movement: Normal speech and movement present Office Procedures EKG Details: Today, read by me, sinus bradycardia, rate 52, QTC 489 milliseconds [id number], Complete Assessment & Plan Assessment & Plan (1) Atrial fibrillation: Code(s): I48.91 - Unspecified atrial fibrillation Category: Medical Plan: Patient presented to [facility] with report of shortness of breath on 02/16/2024. EKG confirmed new finding of atrial fibrillation with RVR. She was initially treated with heart rate control. Echocardiogram showed EF 10-15%, moderate to severe decrease in the RV systolic function, left atrium severely dilated, moderate to severe mitral regurgitation. She was then started on amiodarone to help with rhythm control. Eliquis was started for anticoagulation. On last visit she reported shortness of breath with activity and she had mild lower leg edema. An EKG confirmed ongoing atrial fibrillation, rate 87. She then underwent cardioversion on 04/03/2024 with conversion to normal sinus rhythm. Today she reports that she is feeling well with no concerning symptoms. EKG today shows sinus Bradycardia, rate 52, QTC 489 milliseconds. Blood pressure 114/52. She tells me sometimes at home her blood pressure is low with a systolic at 100. At this time will have her stop metoprolol. Continue amiodarone. Continue Eliquis for anticoagulation. Will enter orders for labs including TSH, ALT, AST for amiodarone monitoring. Continue with periodic home blood pressure and pulse checks. Call if heart rate running elevated greater than 90, which could be recurrent AFib. Emergency care if needed for any concerning symptoms. Cardiology office visit 3 months, sooner if needed (2) Cardiomyopathy: Code(s): I42.9 - Cardiomyopathy, unspecified Category: Medical Plan: Newer finding of cardiomyopathy with EF 10-15%. Most likely tachycardia induced however ischemia has not been ruled out as of yet. She does have shortness of breath with activity which is likely from her atrial fibrillation. No reports of chest discomfort. She recently underwent cardioversion and now is in sinus rhythm. He is quite bradycardic so I will be stopping metoprolol at this time. She has no signs of heart failure on examination. Will obtain a limited echocardiogram to reassess EF. If EF remains down weeks following cardioversion then will need ischemic evaluation. She initially was put on losartan and metoprolol XL for the neurohormonal modulation. Her blood pressure runs low and losartan was previously stopped. Now metoprolol being stopped due to low heart rate.. The losartan has been stopped prior to this visit. She continues on Lasix. (3) CHF (congestive heart failure): Code(s): I50.9 - Heart failure, unspecified Category: Medical Plan: As above. Lungs are clear and no edema on examination today. Will have her continue on daily Lasix. If EF has normalized then her Lasix dose can likely be reduced change to p.r.n. Plan Time spent on chart review, documentation, interview and assessment Orders: Orders CA echo limited Today I42.9 - Cardiomyopathy, unspecified Medications: Discontinued metoprolol succinate ER Discontinued Reason: Doctor's Order 25 mg See Protocol PO DAILY 30 tabs 3RF Coding Level of Care Code Est Pt Level 4 (75651) Diagnoses Atrial fibrillation, unspecified type I48.91 Cardiomyopathy I42.9 CHF (congestive heart failure) I50.9 CPT Codes EKG - CPT: 10800-[id number], Complete ([id number]) Time Spent (min) 28
[2024-05-19 15:37] VITALS: BP 114/52; PULSE 52; BMI 25.8
== END 2024-05-19 16:06 | disposition home or self-care (01) ==
PROVIDERS: PCP Family Medicine; Visit Provider Nurse Practitioner Family
DX: I48.91 Unspecified atrial fibrillation (principal); I42.9 Cardiomyopathy, unspecified; I50.9 Heart failure, unspecified
CPT/HCPCS: 93010; 99214

== ENCOUNTER → 2024-05-19 15:23 | Outpatient (BNVA) | payer MEDICARE, SELFPAY | PROVIDERS: PCP Family Medicine; Visit Provider Nurse Practitioner Family | DX: I48.91 Unspecified atrial fibrillation (principal); I42.9 Cardiomyopathy, unspecified; I11.0 Hypertensive heart disease with heart failure; I50.9 Heart failure, unspecified | CPT/HCPCS: 93005; 99212 ==

== ENCOUNTER → 2024-07-30 13:08 | Outpatient (REF) | payer MEDICARE, SELFPAY ==
--- NOTE | 2024-07-30 13:14 | CA_ITS ---
Transthoracic Echocardiogram Patient (Last, First, Middle): Sharla Rodriguez, Gender: Female Date of : 1935 Age: 88 Procedure Date: 07/30/2024 Procedure Type: Transthoracic Echocardiogram Location: OP Height: 162.56 cm Weight: 63.05 kg BSA: 1.68 m2 Heart Rate: 62 bpm BP: 114 / 52 mmHg Insurance Account Manager: SB Referring MD: Clover Gibson METALIZING MACHINE OPERATOR AUTOMATICCara Symptoms: I42.9 - Cardiomyopathy, unspecified Study Quality: Adequate/limited ordered ECG Rhythm: Sinus Conclusions: - left ventricular systolic function is normal. The calculated ejection fraction is 62% by biplane method. Findings Left Ventricle Normal left ventricular cavity size. The left ventricular systolic function is normal. The calculated ejection fraction is 62% by biplane method. There is no evidence of regional wall motion abnormalities. Prior Study Comparison Changes noted compared to prior study dated: 02/18/2024. LVEF normalized. Measurements 2D Linear Measurements LVIDd: 5.28 3.9-5.3/4.2-5.9 cm LVIDd Index: 3.14 2.4-3.2/2.2-3.1 cm/m2 LVIDs: 3.52 2.0-3.6 cm LVOT Diam: 2.00 3.0+(-)1.3 cm 2D Systolic Function EF 4C: 56.40 >55% EF 2C: 65.60 >55% EF BiP: 61.60 >55% LVOT LVOT Pk Marvel: 0.74 LVOT Mn Marvel: 0.53 LVOT VTI: 0.17 LVOT Pk Grad: 2.00 LVOT Mn Grad: 1.00 LVOT Diam: 2.00 LVOT Area: 3.14 Tricuspid Valve RA Press: 8.00 Updated in Other Vendor System with Status of Final Trav Smith MD electronically signed on 08/01/2024 12:46:28 PM with status of Final
== END ==
LOC: HO.CARD 13:08
PROVIDERS: PCP Family Medicine; Visit Provider Nurse Practitioner Family
DX: I42.9 Cardiomyopathy, unspecified (principal)
CPT/HCPCS: 93308

== ENCOUNTER → 2024-07-30 13:14 | Outpatient (BNV) | payer MEDICARE, SELFPAY | PROVIDERS: PCP Family Medicine; Visit Provider Internal Medicine | DX: I42.8 Other cardiomyopathies (principal) | CPT/HCPCS: 93308 ==

== ENCOUNTER 2024-08-31 14:21 | Outpatient (AMB) | payer MEDICARE, SELFPAY ==
[2024-08-31 14:46] VITALS: BP 140/70; PULSE 58; BMI 26.8
--- NOTE | 2024-08-31 14:46 | MHC.OFFVIS ---
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 Required: No Accompanied by: Son Allergies simvastatin Allergy (Mild, Verified 05/19/24 15:40) Rash Medication List - Last Reconciled 08/31/24 by Momo Garcia MD acetaminophen 500 mg PO DAILY PRN amiodarone 200 mg PO DAILY apixaban (Eliquis) 5 mg PO BID ascorbic acid (vitamin C) 1,000 mg PO DAILY calcium carbonate 1,000 mg PO DAILY cholecalciferol (vitamin D3) 50 mcg PO DAILY cyanocobalamin (vitamin B-12) 2,000 mcg PO DAILY furosemide 40 mg PO DAILY omega 0-eok-cta-fish oil 1,000 mg (120 mg-180 mg) (Fish Oil) 1 cap PO BID zinc sulfate 50 mg PO DAILY HPI Comments Details: Pleasant 88 year female who is here for follow-up. She was seen in the hospital with AFib with RVR and severe cardiomyopathy. She was diuresed and eventually started on anticoagulation and amiodarone. She underwent cardioversion. Repeat echocardiography in 07/2024 showing normal LVEF. She had tachycardia induced cardiomyopathy. She is recovering from a cold. She is using some cough suppressant. She does not know whether there is any decongestant in it because her blood pressure is mildly elevated compared to before. [facility] Medical History Hypercholesterolemia CHF (congestive heart failure) Atrial fibrillation Brain TIA Social History Household Members: None Housing: Other Housing Other:: [facility] Do you presently have visiting nurse or other home services: No Patient Tobacco Use Status: Never used Tobacco Second Hand Smoke Exposure: No service: No Review of Systems Const Denies chills, Denies fatigue, Denies fever(s), Denies frequent falls, Denies weakness, Denies weight gain and Denies weight loss ENT Denies dizziness Card Denies chest pain, Denies leg edema, Denies lightheadedness, Denies palpitations, Denies dyspnea and Denies dyspnea on exertion Resp Denies cough, Denies dyspnea and Denies dyspnea on exertion GI Denies hematochezia Musc Denies abnormal gait, Denies muscle weakness, Denies numbness, Denies radiating pain into limb and Denies tingling Neuro Denies abnormal gait, Denies dizziness, Denies frequent falls, Denies numbness, Denies tingling and Denies weakness Endo Denies fatigue and Denies palpitations Physical Exam Vital Signs: Last Vital Signs Pulse 58 08/31/24 14:46 BP 150/66 H 08/31/24 14:46 BMI result Body Mass Index 26.8 Last Vital Signs Temp 96.8 F 02/19/24 11:13 Pulse 98 02/19/24 11:13 Resp 18 02/19/24 11:13 BP 102/63 02/19/24 11:13 Pulse Ox 95 02/19/24 11:13 O2 Del Method Room Air 02/19/24 11:13 BMI result Body Mass Index 28.2 GENERAL APPEARANCE: in no acute distress, pleasant. NECK: no carotid bruit, no significant jugular venous distention. SKIN: no suspicious lesions, warm and dry. HEART: no murmurs, irregular rate and rhythm. LUNGS: Clear to auscultation. ABDOMEN: soft, nontender. EXTREMITIES: no edema. PERIPHERAL PULSES: equal. NEUROLOGIC: No gross deficits, AAO X 3 Office Procedures EKG Details: Sinus bradycardia 58 beats per minute, leftward axis, septal infarct, QTC 449 milliseconds. [id number], Complete Assessment & Plan Assessment & Plan (1) Atrial fibrillation: Comment: In sinus rhythm Code(s): I48.91 - Unspecified atrial fibrillation Category: Medical (2) Cardiomyopathy: Comment: Resolved Code(s): I42.9 - Cardiomyopathy, unspecified Category: Medical Plan Pleasant 88 year female who had tachycardia induced cardiomyopathy and underwent cardioversion. She is in sinus rhythm at this point. Rhythm control strategy with amiodarone. On Eliquis for anticoagulation. She is taking 40 mg Lasix daily. Clinically euvolemic and doing well. Recent viral illness and she is using cough suppressant. Blood pressure is mildly elevated. I have advised her to check the yujj-ywm-nrlnmwo medicines she is taking and make sure that there is no decongestant in it because that could be the cause her blood pressure is mildly elevated. Follow-up with us in 4 months. She will have blood workup before that as part of surveillance for amiodarone. Thank you for allowing me to participate in the care of your patient. Please feel free to contact me if you have any questions. Orders: Orders TSH reflex Free T4 Today I42.9 - Cardiomyopathy, unspecified B Type Natriuretic Peptide Today I42.9 - Cardiomyopathy, unspecified Liver Panel Today I42.9 - Cardiomyopathy, unspecified Coding Level of Care Code Est Pt Level 4 (22892) Diagnoses Atrial fibrillation, unspecified type I48.91 Cardiomyopathy I42.9 CPT Codes EKG - CPT: 78326-[id number], Complete ([id number])
== END 2024-08-31 15:15 | disposition home or self-care (01) ==
PROVIDERS: PCP Family Medicine; Visit Provider Internal Medicine Cardiovascular Disease
DX: I48.91 Unspecified atrial fibrillation (principal); I42.9 Cardiomyopathy, unspecified
CPT/HCPCS: 93010; 99214

== ENCOUNTER → 2024-08-31 14:21 | Outpatient (BNVA) | payer MEDICARE, SELFPAY | PROVIDERS: PCP Family Medicine; Visit Provider Internal Medicine Cardiovascular Disease | DX: I48.91 Unspecified atrial fibrillation (principal); I42.9 Cardiomyopathy, unspecified; Z79.01 Long term (current) use of anticoagulants | CPT/HCPCS: 93005; 99212 ==

== ENCOUNTER 2024-09-04 22:44 | Emergency (ER) | payer MEDICARE, SELFPAY ==
--- NOTE | 2024-09-04 | ECG_ITS ---
Test Reason : FALL Blood Pressure : / mmHG Vent. Rate : 063 BPM Atrial Rate : 063 BPM P-R Int : 204 ms QRS Dur : 118 ms QT Int : 478 ms P-R-T Axes : 074 -40 027 degrees QTc Int : 489 ms Normal sinus rhythm Left axis deviation Left ventricular hypertrophy with QRS widening ( R in aVL , [place] product ) Abnormal ECG When compared with ECG of 03-APR-2024 14:07, Premature ventricular complexes are no longer Present Incomplete left bundle branch block is no longer Present Referred By: Generic ED Physician Electronically Signed By:BAILEY YING MD
--- NOTE | ~2024-09-04 | XR_ITS ---
EXAMINATION: XR HIP, LEFT CLINICAL INFORMATION: Left hip pain COMPARISON: Left hip radiographs 11/22/2022 TECHNIQUE: Two views of the left hip. FINDINGS: Left hip arthroplasty is noted. Mild acetabular protrusio is noted unchanged compared with 11/22/2022. No periprosthetic fracture is visualized. No fractures of the visualized left pelvis identified. Scattered vascular calcifications noted. No prostatic subluxations noted. XR/XR hip LT w [id number] IMPRESSION: No acute abnormalities. 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 Electronically signed by: Naveen Cline MD 09/05/2024 02:03 AM EDT
--- NOTE | ~2024-09-04 | CT_ITS ---
EXAMINATION: CT PELVIS WITHOUT CONTRAST CLINICAL INFORMATION: Fall. Pelvic pain. COMPARISON: Left hip radiographs 09/05/2024. TECHNIQUE: Helical scanning was performed with submillimeter collimation through the pelvis. Sagittal and coronal multiplanar 2-D reconstructions were obtained. This CT examination was performed using dose optimization techniques as appropriate, variously including the following: *Automated exposure control *Adjustment of mA and/or kV according to patient size (this includes techniques or standardized protocols for targeted exams where dose is matched to indication/reason for exam; i.e. extremities or head) *Use of iterative reconstruction technique DLP: 320 mGy-cm FINDINGS: A left hip total arthroplasty is noted. The sacrum is intact. Chronic appearing posttraumatic deformity of the anterior aspect of the left inferior pubic ramus is noted. Sacrum appears intact. Visualized femurs are intact. No stress reactions noted within the visualized sacrum to suggest pending insufficiency fractures. 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 Within the abdomen and pelvis no free intraperitoneal fluid collections noted. Marked physiologic distention of the urinary bladder. No soft tissue inflammatory changes noted in association with the hips. Intervertebral disc space narrowing and vacuum phenomena of the L5-S1 intervertebral disc noted. A chronic appearing superior endplate Schmorl's node deformity of the L4 vertebral body is noted. CT/CT pelvis wo IV con IMPRESSION: No acute abnormalities identified. Status post total left hip arthroplasty. 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 Electronically signed by: Naveen Cline MD 09/05/2024 03:11 AM EDT
[2024-09-04 22:52] VITALS: BP 148/100; BP 198/86; PULSE 62; PULSE 64; RESP 15; TEMP 37.1; O2SAT 96; O2SAT 98; BMI 26.5
--- NOTE | 2024-09-04 23:06 | PC.NURSE ---
pt biba from home, a&ox4, respirations even and unlabored, reporting mechanical fall in kitchen. pt reports she was walking and tripped over her shoe and fell onto her left hip, pt reports hx of left hip replacement, now reports left hip pain on movement but not while not moving. pt denies loc/head strike but reports being on elequis. pt normal sinus on tele 60-64bpm. 20G placed in left forearm, labs obtained and sent.
[2024-09-04 23:09] LABS: Basophils Absolute Auto 0.2 X10*3/uL (0.0-0.2); Basophils Percent Auto 1.1 % (0-2); Eosinophils Absolute Auto 1.8 X10*3/uL (0.0-0.4); Eosinophils Percent Auto 12.6 % (0-4); Hematocrit 36.4 % (37.0-47.0); Hemoglobin 12.7 g/dl (12.0-16.0); Imm Gran Abs Auto 0.07 X10*3/uL (0.00-0.03); Imm Gran Pct Auto 0.5 % (0.0-0.4); Lymphocytes Absolute Auto 2.2 X10*3/uL (1.2-4.9); Lymphocytes Percent Auto 15.8 % (20-40); MANUAL DIFF FLAG NO; Mean Corpuscular HGB Conc 34.9 g/dl (31.0-35.0); Mean Corpuscular Hemoglobin 34.4 pg (27.0-33.0); Mean Corpuscular Volume 98.6 fL (80.0-98.0); Mean Platelet Volume 8.4 fL (9.4-12.3); Monocytes Absolute Auto 0.8 X10*3/uL (0.1-1.2); Neutrophils Absolute Auto 8.9 x10*3/uL (2.0-8.3); Platelet Count 216 X10*3/uL (160-400); Red Blood Count 3.69 X10*6/uL (4.20-5.50); Red Cell Distribution Width 12.3 % (11.0-16.0)
[2024-09-04 23:16] LABS: Prothrombin Time 11.4 SEC (10.9-12.4)
[2024-09-04 23:25] LABS: Alanine Aminotransferase 19 U/L (0-31); Albumin Level 4.3 g/dL (3.5-5.0); Alkaline Phosphatase 98 U/L (39-117); Anion Gap 14 (12-20); Aspartate Amino Transferase 33 U/L (5-31); Bilirubin Total 0.6 mg/dL (0.0-1.0); Blood Urea Nitrogen 18 mg/dL (9-16); Calcium 8.9 mg/dL (8.4-10.2); Carbon Dioxide 24 mmol/L (22-29); Chloride 98 mmol/L (96-108); Creatinine Clr Calc Pharmacy 46.3; Estimated Glomerular Filt Rate > 60; Glucose Random 84 mg/dL (60-115); Potassium 3.9 mmol/L (3.3-5.1); Sodium 132 mmol/L (135-145); Total Protein 7.6 g/dL (6.5-8.0)
[2024-09-04 23:29] LABS: Troponin-I High Sensitivity 17.8 ng/L (<3.5-17.0)
[2024-09-05] VITALS: BP 181/81; PULSE 64; RESP 14; TEMP 36.4; O2SAT 96
--- NOTE | 2024-09-05 00:10 | ED.GENADULT ---
HPI - General Adult General Chief complaint: Fall Stated complaint: FALL Time Seen by Provider: 09/05/24 00:09 Source: patient and RN notes reviewed Limitations: no limitations History of Present Illness HPI narrative: 88-year-old female who has a history of CHF, AFib on Eliquis, status post left hip replacement, presents for evaluation after a fall. Patient states she was standing in her kitchen, preparing to take her evening medications when she turned, her foot got caught on the floor as she was wearing sneakers, and the patient fell to the left side. She landed on her left hip. She did not strike her head. There was no prodromal symptoms. No chest pain or shortness of breath. Related Data Home Medications ?Medication ?Instructions ?Recorded ?Confirmed ascorbic acid (vitamin C) 1,000 mg 1,000 mg PO DAILY 11/22/22 08/31/24 tablet calcium carbonate 1,000 mg PO DAILY 11/22/22 08/31/24 cholecalciferol (vitamin D3) 50 50 mcg PO DAILY 11/22/22 08/31/24 mcg (2,000 unit) tablet cyanocobalamin (vitamin B-12) 2,000 mcg PO DAILY 11/22/22 08/31/24 2,000 mcg tablet omega 2-ivy-tol-fish oil 1,000 mg 1 cap PO BID 11/22/22 08/31/24 (120 mg-180 mg) capsule (Fish Oil) zinc sulfate 50 mg zinc (220 mg) 50 mg PO DAILY 11/22/22 08/31/24 tablet acetaminophen 500 mg tablet 500 mg PO DAILY PRN Pain 02/17/24 08/31/24 Previous Rx's ?Medication ?Instructions ?Recorded apixaban 5 mg tablet (Eliquis) 5 mg PO BID #60 tabs 04/14/24 furosemide 40 mg tablet 40 mg PO DAILY #30 tabs 04/14/24 amiodarone 200 mg tablet 200 mg PO DAILY #30 tabs 07/14/24 Allergies Allergy/AdvReac Type Severity Reaction Status Date / Time No Known Allergies Allergy Verified 09/04/24 22:54 Review of Systems Constitutional: Constitutional: Denies chills and Denies fever(s) Cardiovascular: Cardiovascular: Denies chest pain, Denies dyspnea, Denies dyspnea on exertion and Denies orthopnea Respiratory: Respiratory: Denies cough, Denies dyspnea and Denies dyspnea on exertion Gastrointestinal: Gastrointestinal: Denies abdominal pain, Denies melena, Denies hematochezia, Denies diarrhea, Denies nausea and Denies vomiting Genitourinary: Genitourinary: Denies dysuria and Denies urinary urgency Musculoskeletal: Musculoskeletal: Denies back pain, Reports arthralgias, Denies muscle weakness and Denies numbness Neurologic: Denies focal weakness and Denies numbness Psychiatric: Psychiatric: Denies depression [facility] Past Medical History Medical History Hypercholesterolemia CHF (congestive heart failure) Atrial fibrillation Brain TIA Social History Social History Household Members: None Housing: Other Housing Other:: [facility] Do you presently have visiting nurse or other home services: No Patient Tobacco Use Status: Never used Tobacco Smoked in Last 30 Days: No Second Hand Smoke Exposure: No Use of substances other than those prescribed or required for medical reasons: No Advance Directives: No Advance Directives Information Provided: Yes Do you have a plan to hurt others: No Plan service: No Physical Exam ED Vital Signs: Vital Signs - 24 hr 09/04/24 22:52 09/05/24 00:00 Temperature 98.8 F 97.6 F Pulse Rate 62 64 Respiratory Rate 15 14 Blood Pressure 198/86 H 181/81 H Pulse Oximetry 96 96 Oxygen Delivery Method Room Air Room Air BMI result Body Mass Index 26.5 Const General: cooperative, alert and awake Resp Other: Lung sounds clear throughout. Cardio Other: Irregularly irregular Back/Spine/Pelvis Other: Ballpoint Pen Cartridge Tester is 5/5 bilaterally. There is mild tenderness to the left hip. There is no crepitus. Difficulty with left leg raise secondary to pain at the hip, groin region. DP pulses are +1 and equal bilaterally. Course Course Course Narrative: September 05, 2024, 1:30 a.m. patient resting comfortably at this time. She continues to have discomfort to the left hip, pain with movement radiating into the groin. We will check CT of the pelvis to ensure no pelvic fracture. Patient's troponin is slightly elevated. She has had elevated troponins in the past. We will repeat. Urinalysis is pending at this time. Patient lives alone in independent living however if she is unable to ambulate or if there are positive findings on CT, she may need to be admitted to the hospital versus rehab placement. I have discussed this with the patient she is agreeable to this plan. Discussed with Dr. Spencer who agrees with plan. 2:00 a.m. 2nd troponin returns, no acute change. Awaiting UA and CT. Patient signed out in stable condition to Dr. Farias. Medications Administered Discontinued Medications Generic Name Dose Route Start Last Admin Trade Name Alicia PRN Reason Stop Dose Admin Acetaminophen 650 mg 09/05/24 00:16 09/05/24 00:44 Acetaminophen 325 Mg Tablet PO 09/05/24 00:17 650 mg ONCE ONE Administration Medical Decision Making Medical Decision Making [facility] Narrative: 88-year-old female presents from home after a mechanical fall. X-rays reviewed with Dr. Spencer, no acute fracture noted. Labs returned demonstrate mild hyponatremia which the patient has had in the past. Troponin slightly elevated. Will repeat. Patient without any chest pain or shortness of breath. Urinalysis pending at this time. Differential Diagnosis Differential Diagnoses: The differential diagnosis associated with the presentation includes Left hip fracture Contusion UTI Metabolic abnormality Admission/Observation Consideration of admission/observation: Escalation of care including admission/observation considered Lab Data [facility] Lab Attestation statement: I reviewed the patient's lab results. 09/04/24 23:04 09/04/24 23:04 Labs: Lab Results 09/04/24 09/05/24 09/05/24 Range/Units 23:04 01:19 01:29 WBC 14.0 H (4.8-10.8) X10*3/uL RBC 3.69 L (4.20-5.50) X10*6/uL Hgb 12.7 (12.0-16.0) g/dl Hct 36.4 L (37.0-47.0) % MCV 98.6 H (80.0-98.0) fL MCH 34.4 H (27.0-33.0) pg MCHC 34.9 (31.0-35.0) g/dl RDW 12.3 (11.0-16.0) % Plt Count 216 (160-400) X10*3/uL MPV 8.4 L (9.4-12.3) fL Immature Gran % (Auto) 0.5 H (0.0-0.4) % Neut % (Auto) 64.0 (45-73) % Lymph % (Auto) 15.8 L (20-40) % Appling % (Auto) 6.0 (2-11) % Eos % (Auto) 12.6 H (0-4) % Baso % (Auto) 1.1 (0-2) % Lymph # (Auto) 2.2 (1.2-4.9) X10*3/uL Appling # (Auto) 0.8 (0.1-1.2) X10*3/uL Eos # (Auto) 1.8 H (0.0-0.4) X10*3/uL Baso # (Auto) 0.2 (0.0-0.2) X10*3/uL Abs Immat Gran (auto) 0.07 H (0.00-0.03) X10*3/uL Absolute Neuts (auto) 8.9 H (2.0-8.3) x10*3/uL Absolute Nucleated RBC 0.000 (0.0-0.012) X10*3/uL Nucleated RBC % (auto) 0.0 (0.0-0.2) /100WBC PT 11.4 (10.9-12.4) SEC INR 1.0 (0.9-1.1) Sodium 132 L (135-145) mmol/L Potassium 3.9 (3.3-5.1) mmol/L Chloride 98 (96-108) mmol/L Carbon Dioxide 24 (22-29) mmol/L Anion Gap 14 (12-20) BUN 18 H (9-16) mg/dL Creatinine 0.82 (0.5-1.4) mg/dL Estim Creat Clear Calc 46.3 Estimated GFR > 60 Random Glucose 84 (60-115) mg/dL Calcium 8.9 (8.4-10.2) mg/dL Total Bilirubin 0.6 (0.0-1.0) mg/dL AST 33 H (5-31) U/L ALT 19 (0-31) U/L Alkaline Phosphatase 98 (39-117) U/L Troponin I High Sens 17.8 H 16.5 (<3.5-17.0) ng/L Total Protein 7.6 (6.5-8.0) g/dL Albumin 4.3 (3.5-5.0) g/dL Urine Color Yellow Urine Appearance Clear Urine pH 6.5 (5.0-9.0) Ur Specific Cocoa 1.010 (1.005-1.025) Urine Protein Negative (Neg-Trace) mg/dL Urine Glucose (UA) Negative (Negative) mg/dL Urine Ketones Negative (Negative) mg/dL Urine Blood Negative (Negative) Urine Nitrite Negative (Negative) Ur Leukocyte Esterase Trace H (Negative) Urine RBC 0-2 (0-2) /HPF Urine WBC 0-5 (0-5) /HPF Ur Squamous Epith Cells 0-2 (0-2) /HPF Urine Bacteria None Seen (None Seen) Hyaline Casts 0-2 (0-2) /LPF Independent Interpretation I performed an independent interpretation of an: Plain X-Ray Interpretation: X-ray of the left hip and pelvis, no acute process. Reviewed with Dr. Spencer. Prescription Management I considered prescription management with: Pain Medication Chronic Conditions Patient?s care impacted by: Hypertension Discharge Plan Discharge Clinical Impression: Fall Qualifiers: Encounter type: initial encounter Qualified Code(s): W19.XXXA - Unspecified fall, initial encounter Acute hip pain Qualifiers: Laterality: left Qualified Code(s): M25.552 - Pain in left hip Patient Disposition: Still a Patient Instructions: Fall Prevention (ED), Hip Pain (ED) Additional Instructions: Rest. Avoid strenuous activity. Tylenol as directed pain. Follow-up with your primary care provider. Call this week to schedule a follow-up appointment. Return to the emergency department if you have any worsening of symptoms, or any concerns. Get well soon! Prescriptions: No Action Eliquis 5 mg tablet 5 mg PO BID Qty: 60 3RF furosemide 40 mg tablet 40 mg PO DAILY Qty: 30 3RF Rx Instructions: Take as directed. Continue to monitor daily weight. amiodarone 200 mg tablet 200 mg PO DAILY Qty: 30 3RF ascorbic acid (vitamin C) 1,000 mg Tablet 1,000 mg PO DAILY zinc sulfate 50 mg zinc (220 mg) Tablet 50 mg PO DAILY calcium carbonate 500 mg calcium (1,250 mg) Tablet 1,000 mg PO DAILY cholecalciferol (vitamin D3) 50 mcg (2,000 unit) Tablet 50 mcg PO DAILY omega 5-izl-lsj-fish oil [Fish Oil] 1,000 mg (120 mg-180 mg) Capsule 1 cap PO BID cyanocobalamin (vitamin B-12) 2,000 mcg Tablet 2,000 mcg PO DAILY acetaminophen 500 mg Tablet 500 mg PO DAILY PRN (Reason: Pain) Print Language: Divehi
[2024-09-05] MEDS: Acetaminophen 325 MG TABLET 650 MG PO (00:44)
--- NOTE | 2024-09-05 00:45 | PC.NURSE ---
pt medicated per mar, tolerated well with water. pt to x ray at this time.
--- NOTE | 2024-09-05 01:32 | PC.NURSE ---
attempted ambulation trial with pt, pt unable to stand without pain to left hip. pt assisted back into bed, assisted with urine sample collection. purewick placed for comfort at this time. Chepe RICHARDS aware.
[2024-09-05 01:36] LABS: Appearance Urine Clear; Color Urine Yellow; Glucose Urine UA Negative (Negative); Leukocyte Esterase Urine Trace (Negative); Nitrite Urine Negative (Negative); PH 6.5 (5.0-9.0); UMIC TRIGGER UA YES; Urine Blood Negative (Negative); Urine Ketones Negative (Negative); Urine Protein Negative (Neg-Trace)
[2024-09-05 01:40] LABS: Bacteria Urine None Seen (None Seen); Hyaline Casts Urine 0-2 /LPF (0-2); RBC Urine 0-2 /HPF (0-2); Squamous Epithelial Cell Urine 0-2 /HPF (0-2); WBC Urine 0-5 /HPF (0-5)
[2024-09-05 01:53] LABS: Troponin-I High Sensitivity 16.5 ng/L (<3.5-17.0)
[2024-09-05 06:00] VITALS: BP 168/68; PULSE 59; RESP 16; TEMP 36.3; O2SAT 95
--- NOTE | 2024-09-05 06:20 | MHC.EDTECH ---
400mls of urine emptied from suction canister
[2024-09-05 09:22] VITALS: BP 147/65; PULSE 61; O2SAT 95
[2024-09-05] MEDS: Cholecalciferol (Vitamin D3) 25 MCG TABLET 50 MCG PO (09:35)
[2024-09-05] MEDS: Calcium Oyster Shell Elemental 500 MG TABLET 1000 MG PO (09:35)
[2024-09-05] MEDS: Apixaban 5 MG TABLET PO (09:35)
[2024-09-05] MEDS: Cyanocobalamin (Vitamin B-12) 1,000 MCG TABLET 2000 MCG PO (09:35)
[2024-09-05] MEDS: Amiodarone HCL 200 MG TABLET PO (09:35)
[2024-09-05] MEDS: Ascorbic Acid 500 MG TABLET 1000 MG PO (09:35)
--- NOTE | 2024-09-05 10:51 | MHC.CM.ED ---
Received case management consult overnight. Physical therapy eval completed. Short term rehab is recommended. Received telephone call from patient's son, Alex. Alex can be reached via telephone at [phone]. Patient is requesting referral to [facility]. Referral made. Alex aware placement at [facility] would be privately paid. Referral made via [facility]. Continue to monitor for d/c needs.
[2024-09-05 11:14] LABS: IDNOW Serial# 152EDE1D
[2024-09-05 11:15] LABS: COVID-19 Test Negative (Negative)
--- NOTE | 2024-09-05 13:29 | MHC.CM.ED ---
Day [facility] is able to offer a bed. Check has been provided to facility from family. Patient can leave at 330pm. Family will transport. HCP completed, signed and witnessed. Original given to patient. Copy placed in chat. Patient, family, Nadya MORRISSEY and Dena RICHARDS aware. Continue to monitor for d/c needs.
[2024-09-05 14:00] VITALS: BP 136/57; PULSE 68; RESP 20; TEMP 36.1; O2SAT 96
[2024-09-05 15:18] VITALS: BP 136/57; PULSE 68; RESP 20; TEMP 36.1; O2SAT 96
== END 2024-09-05 15:28 | disposition skilled nursing facility (03) ==
PROVIDERS: Physician Assistant; Emergency Provider Emergency Medicine; PCP Family Medicine
DX: M25.552 Pain in left hip (principal); Z91.81 History of falling; E78.00 Pure hypercholesterolemia, unspecified; I10 Essential (primary) hypertension; I48.91 Unspecified atrial fibrillation; Z79.01 Long term (current) use of anticoagulants; Z79.899 Other long term (current) drug therapy; Z11.52 Encounter for screening for COVID-19
CPT/HCPCS: 36415; 72192; 73502; 80053; 81001; 84484; 85025; 85610; 87635; 93005; 97161; 99285

== ENCOUNTER → 2024-09-04 22:46 | Outpatient (BNV) | payer MEDICARE, SELFPAY | PROVIDERS: Emergency Provider Emergency Medicine; PCP Family Medicine; Visit Provider Internal Medicine Cardiovascular Disease | DX: R94.31 Abnormal electrocardiogram [ECG] [EKG] (principal) | CPT/HCPCS: 93010 ==

== ENCOUNTER 2025-08-09 14:20 | Outpatient (AMB) | payer MEDICARE, SELFPAY ==
--- NOTE | 2025-08-09 14:24 | A.OFFVIS_ITS ---
Vital Signs 08/09/25 14:25 Height 5 ft 4 in Weight 150 lb 12.739 oz BMI 25.9 BP 120/60 Blood Pressure Location Lt brachial Position Sitting Pulse 85 Pulse Source Monitor Intake Visit Reasons: F/u Overdue abby Accompanied by: Self / Same As Patient Allergies No Known Allergies Allergy (Verified 08/09/25 14:33) Medication List - Last Reconciled 08/09/25 by RAJWINDER Mcdowell acetaminophen 500 mg PO DAILY PRN apixaban (Eliquis) 5 mg PO BID ascorbic acid (vitamin C) 1,000 mg PO DAILY calcium carbonate 1,000 mg PO DAILY cholecalciferol (vitamin D3) 50 mcg PO DAILY cyanocobalamin (vitamin B-12) 2,000 mcg PO DAILY HPI HPI F/u Overdue abby: Details: Sharla is an 89-year-old female with past medical history of hyperlipidemia, paroxysmal atrial fibrillation with prior cardioversion, 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 Her last prior visit was 08/31/2024. Today she reports that since her last visit she underwent an atrial fibrillation ablation and is no longer on amiodarone or any rate slowing agents. She will her only prescription medication is Eliquis. She reports feeling good with no concerning symptoms. She has no chest discomfort, heart palpitations, shortness of breath, leg edema. She sings in a choir at her assisted living facility. They do performance is 3 times a year. She also does an exercise program through [facility], where she resides. No bleeding issues reported. She continues to drive and reports good activity tolerance. [facility] Medical History Hypercholesterolemia CHF (congestive heart failure) Atrial fibrillation Brain TIA Social History Household Members: None Housing: Other Housing Other:: [facility] Do you presently have visiting nurse or other home services: No Patient Tobacco Use Status: Never used Tobacco Second Hand Smoke Exposure: No service: No Review of Systems Const All systems reviewed & are unremarkable except as noted in HPI and below Denies daytime sleepiness, Denies difficulty sleeping, Denies snoring, Denies stops breathing during sleep and Denies weakness Card Denies chest pain, Denies rapid heart rate, Denies irregular heart rhythm, Denie s claudication, Denies leg edema, Denies lightheadedness, Denies palpitations, Denies dyspnea, Denies dyspnea on exertion, Denies orthopnea, Denies paroxysmal nocturnal dyspnea and Denies slow heart rate Resp Denies cough, Denies dyspnea, Denies dyspnea on exertion and Denies snoring GI Reports no additional complaints, Denies hematochezia, Denies change in stool character and Denies dyspepsia Musc Denies abnormal gait, Denies muscle weakness and Denies numbness Neuro Denies abnormal gait, Denies numbness and Denies weakness Endo Denies palpitations Physical Exam Const General: cooperative, healthy appearing, comfortable and no acute distress Orientation/consciousness: patient oriented x3 Neck Neck: Yes normal visual inspection Resp Effort & Inspection: normal respiratory effort Auscultation: clear to auscultation bilaterally, no crackles, no rales, no rhonchi and no wheezes Cardio Rate: regular rate Rhythm: regular rhythm Heart sounds: S1 normal heart sound present, S2 normal heart sound present, no gallops, no murmurs and no rubs Neuro General: patient oriented x3 Extrem General: Yes normal to inspection, No no pedal edema and No calf tenderness Psych Appearance: grossly normal Mental Status: mental status grossly normal Speech and movement: Normal speech and movement present Office Procedures EKG Details: Today, read by me, normal sinus rhythm with 1 Pac, rate 85, QTC 456 millisecond, artifact on tracing, rate 85, QTC 456 milliseconds [id number], Complete Assessment & Plan Assessment & Plan (1) Atrial fibrillation: Comment: In sinus rhythm Code(s): I48.91 - Unspecified atrial fibrillation Category: Medical Plan: Newer finding of paroxysmal atrial fibrillation, 01/2024.. She did require cardioversion 03/2025 and was put on amiodarone for rhythm control. Today she reports undergoing atrial fibrillation ablation close to 1 year ago. She is no longer on any antiarrhythmic or beta blockers. EKG done today is showing sinus rhythm with 1 Pac, rate 85. Her only prescription medication is Eliquis 5 mg b.i.d. which is appropriate for her age and most recent creatinine level. She is due for labs which are followed by her PCP. Will work on obtaining records from her ablation procedure. Will have her wear a Holter monitor to assess for paroxysmal AFib. Plan to call her with results. If rates will allow, will consider use of low-dose beta-chuy to help prevent recurrent AFib. Continue Eliquis. Cardiology follow-up 6 months, sooner if needed (2) Cardiomyopathy: Comment: Resolved Code(s): I42.9 - Cardiomyopathy, unspecified Category: Medical Plan: Finding of tachycardia mediated cardiomyopathy with EF 10-15%, 01/2024. Once AFib was controlled a repeat echocardiogram 07/30/2024 showed normalization of EF. She has been on metoprolol XL for neurohormonal modulation in his seems she is no longer on it. Has been on losartan in the past but it was stopped due to hypotension. She does not require any diuretics. (3) CHF (congestive heart failure): Code(s): I50.9 - Heart failure, unspecified Category: Medical Plan: Prior heart failure with reduced EF. EF normalized on last echocardiogram. She is not fluid overloaded on examination. No longer requiring diuretics. Plan I discussed with the patient the plan to use a heart monitor to ensure there is no atrial fibrillation occurring intermittently. We also talked about the potential need for metoprolol if no significant low heart rates noted. She has had heart weakness in past and if recurrent atrial fibrillation occurs, then weakness could reoccur. The patient was informed that the scheduling department will contact her for the heart monitor setup. Orders: Orders ECG 3 day holter monitor Today I48.91 - Unspecified atrial fibrillation Patient Instructions: - Await a call from the scheduling department for heart monitor setup. - Continue current activities and medications as prescribed. - Follow up in six months or sooner if symptoms change. Patient was informed and verbally consented to the use of an ambient scribe for clinic note documentation during this visit. Visit time spent on chart review, interview, assessment, orders, documentation. Coding Level of Care Code Est Pt Level 4 (98493) Complex EM visit Add On G2211 Diagnoses Atrial fibrillation, unspecified type I48.91 Cardiomyopathy I42.9 CHF (congestive heart failure) I50.9 CPT Codes EKG - CPT: [id number], Complete ([id number]) Time Spent (min) 28
[2025-08-09 14:25] VITALS: BP 120/60; PULSE 85; BMI 25.9
--- OUTSIDE RECORDS SUMMARY | 2025-08-09 19:43 | XMS_ITS | Encounter Summary ---
Author Organization [facility] Address [address] [place] [id number] Phone Care Team Providers Care Binder Cutter Hand Name Role Phone Renee Saucedo Primary Care Provider [phone] Encounter Details Date Type Department Care Team (Latest Contact Info) Description 03/03/2018 Ancillary [facility] [address] [place] [address] [place] [address] Carl Torres DO [address] [place] [id number] PVC's (premature ventricular contractions) Social History Tobacco Use Types Packs/Day Years Used Date Smoking Tobacco: Never Assessed Comments Unknown Sex and Gender Information Value Date Recorded Sex Assigned at Not on file Legal Sex Female 10:14 PM EDT Gender Identity Not on file Sexual Orientation Not on file documented as of this encounter Plan of Treatment Not on file documented as of this encounter Results * Holter Monitor 24 Hours (03/03/2018 11:58 AM EDT) Anatomical Region Laterality Modality Heart Other Narrative 03/03/2018 5:16 PM EDT 24-hour monitor: No symptoms reported. Baseline rhythm is sinus with a minimum heart rate 43 maximum 134 average 62 bpm. Rare PVCs, with a 3 beat run of nonsustained ventricular tachycardia present. Frequent atrial ectopy, including PACs, couplets, and runs of atrial tachycardia lasting up to 16 beats. Impression: Abnormal 24-hour monitor. No symptoms reported. Increased atrial ectopy including brief runs of atrial tachycardia. No atrial fibrillation recorded. Carl Torres DO [facility] ORDERABLE S Final Result documented in this encounter Visit Diagnoses Diagnosis PVC's (premature ventricular contractions) Other premature beats PVC's (premature ventricular contractions) Other premature beats documented in this encounter Care Teams Binder Cutter Hand Relationship Specialty Start Date End Date Renee Saucedo DO [address] [place] [address] PCP - General 11/28/17 documented as of this encounter Additional Source Comments The information contained in this document represents components of the legal health record. It is not the complete legal health record.[facility]
--- OUTSIDE RECORDS SUMMARY | 2025-08-09 19:43 | XMS_ITS | Clinical Summary ---
Author Organization [facility] Address [address] [address] Phone Care Team Providers Care Bulb Grader Name Role Phone Renee Saucedo DO Primary Care Provider [phone] Allergies Active Allergy Reactions Criticality Noted Date Comments Adhes. Dkdf-Vbls-Vjlkaktfglly 2020 Amoxicillin 07/19/2021 Simvastatin 07/19/2021 Sulfa (Sulfonamide Antibiotics) 06/26 Medications atorvastatin (LIPITOR) 20 MG tablet Orally Active MULTIVITAMIN (MULTIPLE VITAMIN ORAL) Active OMEGA-3S/DHA/EPA /FISH OIL (OMEGA 3 ORAL) Active Medication-Free Text Vitamin C Active CALCIUM CARB/D3/MAGNESIU M/ZINC (ARNOLDO MAG ZINC + D3 ORAL) Acti ve aspirin (ASPIR-81) 81 MG EC tablet Active Immunizations Immunization Administration Dates Next Due COVID-19 (Pre-09/16) Pfizer Vaccine, mRNA, PF ,12/29/2020 Td (adult) 5 Lf Tetanus Toxoid, PF, Adsorbed 04/2012 Social History Tobacco Use Types Packs/Day Years Used Date Smoking Tobacco: Never Assessed Education Answer Date Recorded Are you interested in more education? Not on gomez e 03/22/2023 Are you concerned about learning? Not on file 03/22/2023 No 03/22/2023 No 03/22/2023 Digital Access Answer Date Recorded No 04/20/2023 No 04/20/2023 Reliable internet access at home? Not on file 04/20/2023 Device with a working camera? Not on file Comments Unknown Sex and Gender Information Value Date Recorded Sex Assigned at Not on file Legal Sex Female 10:14 PM EDT Gender Identity Not on file Sexual Orientation Not on file Last Filed Vital Signs Vital Sign Reading Time Taken Comments Blood Pressure 148/76 07/19/2021 5:38 PM EDT Pulse 63 07/19/2021 5:38 PM EDT Temperature 36.5 C (97.7 F) 07/19/2021 5:38 PM EDT Respiratory Rate 16 07/19/2021 5:38 PM EDT Oxygen Saturation 98% 07/19/2021 5:38 PM EDT Inhaled Oxygen Concentration - - Weight 68 kg (150 lb) 07/19/2021 2:25 PM EDT Height 172.7 cm (5' 8 ) 07/19/2021 2:25 PM EDT Body Mass Index 22.81 07/19/2021 2:25 PM EDT Plan of Treatment Health Maintenance Due Date Last Done Comments DEPRESSION SCREENING 1947 ZOSTER VACCINES (1 of 2) 1986 RSV VACCINE (1 - 1-dose 75+ series) 2011 PNEUMOCOCCAL VACCINES (50+ years) (2 of 2 - PPSV23) 10/06/2019 10/06/2018 Adult Td,Tdap Booster 07/31/2022 07/31/2012, 002 INFLUENZA VACCINE (#1) 2025 , 09/25/2022, 09/07/2022, Additional history exists COVID-19 VACCINE ( season) 2025 08/30/2023, 01/19/2021, 12/29/2020 OSTEOPOROSIS SCREENING INITIAL (ONE-TIME) Completed 11/29/2023 HEPATITIS A VACCINES Aged Out No long er eligible based on patient's age to complete this topic HIB VACCINES Aged Out No longer eligi ble based on patient's age to complete this topic MENINGOCOCCAL VACCINES (ACWY) Aged Out No longer eligible based on patient's age to complete this topic MENINGOCOCCAL VACCINES (B) Aged Out N o longer eligible based on patient's age to complete this topic Medical Devices Not on file Procedures Procedure Name Priority Date/Time Associated Diagnosis Comments BD DXA AXIAL (SPINE) WITH HIP Routine 11/29/2023 3:32 PM EST Asymptomatic menopausal state from Last 3 Months or Most Recently Relevant to Health Maintenance Results * BD DXA AXIAL (SPINE) WITH HIP (11/29/2023 3:32 PM EST) Anatomical Region Laterality Modality Bone Density Bone Density 12/03/2023 2:03 PM EST Impressions 12/16/2023 3:39 PM EST Osteoporosis based upon bone mineral density in the lumbar spine. ATTESTATION: I, Maxwell Milton as teaching physician, have reviewed the images for this case and if necessary edited the report originally created by Ryne Win. Narrative 12/16/2023 3:39 PM EST BD DXA AXIAL (SPINE) WITH HIP INDICATION: Postmenopausal estrogen deficiency. Osteoporosis screening. COMPARISON: None. Evaluation of the lumbar spine and right hip is obtained and appears technically adequate. The lumbar spine from L2 through L4 discloses a total bone mineral density of 0.774 g/cm2 T-score: -2.8 Z-Score: 0.2 WHO Classification: Osteoporosis The right hip (total) has a total bone mineral density of 0.674 g/cm2 T-score: -2.2 Z-Score: 0.1 WHO Classification: Osteopenia The right hip (neck) has a total bone mineral density of 0.596 g/cm2 T-score: -2.3 Z-Score: 0.2 FRAX: 10-Year Fracture Risk Major Osteoporotic Fracture: 16% Hip Fracture: 5.5% Procedure Note Maxwell Milton MD - 12/16/2023 BD DXA AXIAL (SPINE) WITH HIP INDICATION: Postmenopausal estrogen deficiency. Osteoporosis screening. COMPARISON: None. Evaluation of the lumbar spine and right hip is obtained and appearstechnically adequate. The lumbar spine from L2 through L4 discloses a total bone mineral densityof 0.774 g/cm2 T-score: -2.8 Z-Score: 0.2 WHO Classification: Osteoporosis The right hip (total) has a total bone mineral density of 0.674 g/cm2 T-score: -2.2 Z-Score: 0.1 WHO Classification: Osteopenia The right hip (neck) has a total bone mineral density of 0.596 g/cm2 T-score: -2.3 Z-Score: 0.2 FRAX: 10-Year Fracture Risk Major Osteoporotic Fracture: 16% Hip Fracture: 5.5% IMPRESSION: Osteoporosis based upon bone mineral density in the lumbar spine. ATTESTATION: I, Maxwell Milton as teaching physician, have reviewed theimages for this case and if necessary edited the report originally createdby Ryne Win. us Renee Saucedo DO IMG BD BONE DENSITY DEXA Final Result from Last 3 Months or Most Recently Relevant to Health Maintenance Insurance MEDICARE PART A & B [employer] MEDEX SUPPLEMENT MEDICARE PART A & B [employer] CROSS MEDEX SUPPLEMENT MEDICARE PART A & B [email or web address] MEDEX SUPPLEMENT MEDICARE PART A & B [email or web address] MEDEX SUPPLEMENT MEDICARE PART A & B [email or web address] MEDEX SUPPLEMENT MEDICARE PART A & B [email or web address] MEDEX SUPPLEMENT MEDICARE PART A & B [employer] MEDEX SUPPLEMENT MEDICARE PART A & B [employer] CROSS MEDEX SUPPLEMENT MEDICARE PART A & B [employer] CROSS MEDEX SUPPLEMENT Care Teams Bulb Grader Relationship Specialty Start Date End Date Renee Saucedo DO [address] [place] [address] PCP - General 11/28/17 Additional Source Comments The information contained in this document represents components of the legal health record. It is not the complete legal health record.[facility]
--- OUTSIDE RECORDS SUMMARY | 2025-08-09 19:43 | XMS_ITS | Encounter Summary ---
Author Organization [facility] Address [address] [facility] [address] [place] [address] Phone Care Team Providers Care Transitional Kindergarten Teacher Name Role Phone Renee Saucedo DO Primary Care Provider [phone] Encounter Details Date Type Department Care Team (Late st Contact Info) Description 07/19/2021 Procedure Pass [facility], Ct Scan - [address] [address] Social History Tobacco Use Types Packs/Day Years Used Date Smoking Tobacco: Never Assessed Comments Unknown Sex and Gender Information Value Date Recorded Sex Assigned at Not on file Legal Sex Female 10:14 PM EDT Gender Identity Not on file Sexual Orientation Not on file documented as of this encounter Functional Status * Calculated C-SSRS Risk Score (Lifetime/Recent) Answer Date of Assessment Author No Risk Indicated 07/19/2021 2:31 PM EDT Dena Edwards RN * [place] Suicide Severity Rating Scale (Screener/Recent Self-Report) Question Answer Date of Assessment Author 1. Wish to be (Past 1 Month) No 021 2:31 PM EDT Dena Strickland RN 2. Non-Specific Active Suici yudith Thoughts (Past 1 Month) No 07/19/2021 2:31 PM EDT Carmen Strickland RN 6. Suicidal Behavior (Lifetime) No 2:31 PM EDT Dena Strickland RN documented as of this encounter Plan of Treatment Not on file documented as of this encounter Visit Diagnoses Not on filedocumented in this encounter Care Teams Transitional Kindergarten Teacher Relationship Specialty Start Date End Date Renee Saucedo DO [address] [place] [address] PCP - General 11/28/17 documented as of this encounter Additional Source Comments The information contained in this document represents components of the legal health record. It is not the complete legal health record.[facility]
--- OUTSIDE RECORDS SUMMARY | 2025-08-09 19:43 | XMS_ITS | Encounter Summary ---
Author Organization [facility] Address [address] [address] Phone Care Team Providers Care Brick Layer Name Role Phone Renee Saucedo DO Primary Care Provider [phone] Encounter Details Date Type Department Care Team (Latest Contact Info) Description 04/09/2023 Transcribe Orders Virtual Department [address] [place] [address] Renee Saucedo DO [address] [place] [address] [place] [address] [email or web address] Asymptomatic menopausal state (Primary Dx) Social History Tobacco Use Types Packs/Day Years Used Date Smoking Tobacco: Never Assessed Education Answer Date Recorded Are you interested in more education? Not on gomez e 03/22/2023 Are you concerned about learning? Not on file 03/22/2023 No 03/22/2023 No 03/22/2023 Comments Unknown Sex and Gender Information Value Date Recorded Sex Assigned at Not on file Legal Sex Female 10:14 PM EDT Gender Identity Not on file Sexual Orientation Not on file documented as of this encounter Plan of Treatment Not on file documented as of this encounter Results * BD DXA AXIAL (SPINE) WITH [...] edited the report originally createdby Ryne Win. Renee Saucedo DO IMG BD BONE DENSITY DEXA Final Result documented in this encounter Visit Diagnoses Diagnosis Asymptomatic menopausal state- Primary Asymptomatic menopausal state documented in this encounter Care Teams Brick Layer Relationship Specialty Start Date End Date Renee Saucedo DO [address] [place] [address] PCP - General 11/28/17 documented as of this encounter Additional Source Comments The information contained in this document represents components of the legal health record. It is not the complete legal health record.[facility]
== END 2025-08-09 14:59 | disposition home or self-care (01) ==
LOC: HO.HCS 14:20
PROVIDERS: PCP Family Medicine; Visit Provider Nurse Practitioner Family
DX: I48.91 Unspecified atrial fibrillation (principal); I42.9 Cardiomyopathy, unspecified; I50.9 Heart failure, unspecified
CPT/HCPCS: 93010; 99214; G2211

== ENCOUNTER → 2025-08-09 14:20 | Outpatient (BNVA) | payer MEDICARE, SELFPAY | PROVIDERS: PCP Family Medicine; Visit Provider Nurse Practitioner Family | DX: I48.0 Paroxysmal atrial fibrillation (principal); I42.9 Cardiomyopathy, unspecified; I50.9 Heart failure, unspecified; Z79.01 Long term (current) use of anticoagulants | CPT/HCPCS: 93005; 99212 ==

== ENCOUNTER → 2025-08-18 08:38 | Outpatient (REF) | payer MEDICARE, SELFPAY ==
--- NOTE | 2025-08-18 08:42 | HM_ITS ---
* Total monitoring time 3 days. * Underlying rhythm is sinus with an average rate of 72/Min. * Frequent supraventricular ectopy with a burden of 23%. * Ventricular ectopy noted with a burden of 3.7%. Rare couplets and triplets. 7 beat run of AIVR during sleep hours. * No significant pauses or high-grade AV blocks. * Patient marker associated with supraventricular ectopy. * No diary events. MTDD
--- OUTSIDE RECORDS SUMMARY | 2025-08-18 09:41 | XMS_ITS | Encounter Summary ---
Author Organization [facility] Address [address] [facility] [address] [place] [address] Phone Care Team Providers Care Hospital Pharmacy Director Name Role Phone Renee Saucedo DO Primary Care Provider [phone] Encounter Details Date Type Department Care Team (Late st Contact Info) Description 07/19/2021 Procedure Pass [facility], Ct Scan - [address] [address] Social History Tobacco Use Types Packs/Day Years [...] 2:31 PM EDT Dena Edwards RN * [place] Suicide Severity Rating Scale (Screener/Recent Self-Report) Question [...] on filedocumented in this encounter Care Teams Hospital Pharmacy Director Relationship Specialty Start Date End Date Renee Saucedo DO [address] [place] [address] PCP - General 11/28/17 documented as of this encounter Additional Source Comments The information contained in this document represents components of the legal health record. It is not the complete legal health record.[facility]
--- OUTSIDE RECORDS SUMMARY | 2025-08-18 09:41 | XMS_ITS | Clinical Summary ---
Author Organization [facility] Address [address] [address] Phone Care Team Providers Care A/C Tech Name Role Phone Renee Saucedo DO Primary Care Provider [phone] Allergies Active Allergy Reactions Criticality Noted Date Comments Adhes. Ufzv-Fsvz-Pjyvlcwmppfp 2020 Amoxicillin 07/19/2021 Simvastatin 07/19/2021 Sulfa (Sulfonamide [...] Maintenance Insurance MEDICARE PART A & B [employer] MEDEX SUPPLEMENT MEDICARE PART A & B [employer] CROSS MEDEX SUPPLEMENT MEDICARE PART A & B [employer] MEDEX SUPPLEMENT MEDICARE PART A & B [employer] MEDEX SUPPLEMENT MEDICARE PART A & B [employer] MEDEX SUPPLEMENT MEDICARE PART A & B [employer] MEDEX SUPPLEMENT MEDICARE PART A & B [employer] MEDEX SUPPLEMENT MEDICARE PART A & B [employer] CROSS MEDEX SUPPLEMENT MEDICARE PART A & B [employer] CROSS MEDEX SUPPLEMENT Care Teams A/C Tech Relationship Specialty Start Date End Date Renee Saucedo DO [address] [place] [address] PCP - General 11/28/17 Additional Source Comments The information contained in this document represents components of the legal health record. It is not the complete legal health record.[facility]
--- OUTSIDE RECORDS SUMMARY | 2025-08-18 09:41 | XMS_ITS | Encounter Summary ---
Author Organization [facility] Address 399 [facility] [address] [place] [address] Phone Care Team Providers Care Locomotive Crane Engineer Name Role Phone Renee Saucedo Primary Care Provider [phone] Encounter Details Date Type Department Care Team (Latest Contact Info) Description 03/03/2018 Ancillary [facility] [address] [place] [address] [place] [address] Carl Torres DO [address] [place] [address] PVC's (premature ventricular contractions) Social History Tobacco [...] beats documented in this encounter Care Teams Locomotive Crane Engineer Relationship Specialty Start Date End Date Renee Saucedo DO [address] [place] [address] PCP - General 11/28/17 documented as of this encounter Additional Source Comments The information contained in this document represents components of the legal health record. It is not the complete legal health record.[facility]
--- OUTSIDE RECORDS SUMMARY | 2025-08-18 09:41 | XMS_ITS | Encounter Summary ---
Author Organization [facility] Address [address] [address] Phone Care Team Providers Care Dub Room Engineer Name Role Phone Renee Saucedo DO Primary Care Provider [phone] Encounter Details Date Type Department Care Team (Latest Contact Info) Description 04/09/2023 Transcribe Orders Virtual Department [address] [place] [address] Renee Saucedo DO [address] [place] [address] [place] [address] [email or web address] Asymptomatic menopausal state (Primary Dx) Social [...] state documented in this encounter Care Teams Dub Room Engineer Relationship Specialty Start Date End Date Renee Saucedo DO [address] [place] [address] PCP - General 11/28/17 documented as of this encounter Additional Source Comments The information contained in this document represents components of the legal health record. It is not the complete legal health record.[facility]
== END ==
LOC: HO.CARD 08:38
PROVIDERS: PCP Family Medicine; Visit Provider Nurse Practitioner Family
DX: I48.91 Unspecified atrial fibrillation (principal)
CPT/HCPCS: 93242

== ENCOUNTER → 2025-08-18 08:42 | Outpatient (BNV) | payer MEDICARE, SELFPAY | PROVIDERS: PCP Family Medicine; Visit Provider Internal Medicine | DX: I49.3 Ventricular premature depolarization (principal); I49.49 Other premature depolarization | CPT/HCPCS: 93244 ==